=== PATIENT | female | born 1995 | race Caucasian/White ===

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

== ENCOUNTER 2017-02-02 19:58 | Emergency (ER) | payer MEDICAID ==
[2017-02-02 20:07] VITALS: BP 135/75; PULSE 100; O2SAT 97
--- NOTE | 2017-02-02 20:16 | ERPHSYRPT ---
- History of Present Illness Time Seen by Provider: 02/02/17 20:15 Source: patient Exam Limitations: no limitations Patient Subjective Stated Complaint: pt reports taking home pregancy test a few days ago with + results-states she began having low abd cramps fabienne 2 hrs ago- denies vaginal discharge-denies fever-denies diffilcuty with uriantion Triage Nursing Assessment: pt pink warm et [id number] et tearful during triage-abd soft et nontedner to palp Physician History: pt reports taking home pregancy test a few days ago with + results-states she began having low abd cramps fabienne 2 hrs ago-denies vaginal discharge-denies fever- denies diffilcuty with uriantion Timing/Duration: today Activites at Onset: none Quality: cramping Onset Location: suprapubic Pain Radiation: none Allergies/Adverse Reactions: Latex, Natural Rubber Allergy (Verified 02/02/17 20:06) Home Medications: Albuterol 17 gm IH DAILY 09/07/16 [History] Hx Tetanus, Diphtheria Vaccination/Date Given: No Hx Influenza Vaccination/Date Given: No Hx Pneumococcal Vaccination/Date Given: No - Review of Systems Constitutional: No Fever, No Chills Eyes: No Symptoms Ears, Nose, & Throat: No Symptoms Respiratory: No Cough, No Dyspnea Cardiac: No Chest Pain, No Edema, No Syncope Abdominal/Gastrointestinal: Abdominal Pain, No Nausea, No Vomiting, No Diarrhea , No Hematemesis, No Hematochezia, No Melena, No Dysphagia, No Appetite Changes Genitourinary Symptoms: No Dysuria Musculoskeletal: No Back Pain, No Neck Pain Skin: No Rash Neurological: No Dizziness, No Focal Weakness, No Sensory Changes Psychological: No Symptoms Endocrine: No Symptoms All Other Systems: Reviewed and Negative - Past Medical History Pertinent Past Medical History: Yes Neurological History: Epilepsy, Seizures ENT History: No Pertinent History Cardiac History: Other Respiratory History: Asthma Endocrine Medical History: No Pertinent History Musculoskeletal History: No Pertinent History GI Medical History: No Pertinent History History: No Pertinent History Psycho-Social History: Depression, Other Female Reproductive Disorders: No Pertinent History Other Medical History: narcolepsy, HOLE IN HEART, IRREGULAR HEARTBEAT - Past Surgical History Past Surgical History: No - Social History Smoking Status: Never smoker How long have you smoked: 3 YEARS Exposure to second hand smoke: Yes Drug Use: none Patient Lives Alone: No - Female History Hx Now: No - Nursing Vital Signs Nursing Vital Signs: Initial Vital Signs Temperature 98.7 F Temperature Source Oral Pulse Rate 100 Respiratory Rate 20 Blood Pressure [Right Arm] 135/75 Pain Intensity 9 - Physical Exam General Appearance: no apparent distress, alert Eye Exam: PERRL/EOMI, eyes nml inspection Ears, Nose, Throat Exam: normal ENT inspection, TMs normal, pharynx normal, moist mucous membranes Neck Exam: normal inspection, non-tender, supple, full range of motion Respiratory Exam: normal breath sounds, lungs clear, No respiratory distress Cardiovascular Exam: regular rate/rhythm, normal heart sounds, normal peripheral pulses Gastrointestinal/Abdomen Exam: soft, No tenderness, No mass Back Exam: normal inspection, normal range of motion, No CVA tenderness, No vertebral tenderness Extremity Exam: normal inspection, normal range of motion, pelvis stable Neurologic Exam: alert, oriented x 3, cooperative, salt lifter II-XII nml as tested, normal mood/affect, sensation nml, No motor deficits Skin Exam: normal color, warm, dry Lymphatic Exam: No adenopathy SpO2: 97 Oxygen Delivery: Room Air - Course Nursing assessment & vital signs reviewed: Yes Ordered Tests: Active Orders 24 hr Category Date Time Status CBC W DIFF Stat Lab 02/02/17 20:23 Completed CMP Stat Lab 02/02/17 20:23 Completed CULTURE,URINE Stat Lab 02/02/17 20:23 Received HCG, Quantitative (Inhouse) Stat Lab 02/02/17 20:23 Completed HCG,QUALITATIVE URINE Stat Lab 02/02/17 20:04 Uncollected UA W/ MICROSCOPIC Stat Lab 02/02/17 20:23 Completed Urine Triage Profile Stat Lab 02/02/17 20:23 Completed Medication Summary Generic Name Dose Route Start Last Admin Trade Name Freq PRN Reason Stop Dose Admin Ceftriaxone Sodium 1,000 mg/ 100 mls @ 100 mls/hr 02/02/17 20:52 02/02/17 20: 55 Sodium Chloride IV 02/02/17 21:51 100 mls/hr STAT ONE Administration Discontinued Medications Generic Name Dose Route Start Last Admin Trade Name Freq PRN Reason Stop Dose Admin Ceftriaxone Sodium/Dextrose Confirm 02/02/17 20:52 Rocephin 1 Gm-D5w 50 Ml Bag Administered 02/02/17 20:53 Dose 1 g in 50 mls @ ud IV .STK-MED ONE Lab/Rad Data: Laboratory Result Diagrams 02/02/17 20:23 02/02/17 20:23 Laboratory Results 02/02/17 02/02/17 02/02/17 Range/Units 20:23 20:23 20:23 WBC (4.0-10.5) K/mm3 RBC (4.1-5.4) M/mm3 Hgb (12.0-16.0) gm/dl Hct (35-47) % MCV (78-100) fl MCH (26-32) pg MCHC (32-36) g/dl RDW (11.5-14.0) % Plt Count (150-450) K/mm3 MPV (6-9.5) fl Gran % (36.0-66.0) % Lymphocytes % (24.0-44.0) % Monocytes % (0.0-12.0) % Eosinophils % (0.00-5.0) % Basophils % (0.0-0.4) % Basophils # (0-0.4) Sodium 138 (136-145) mEq/L Potassium 3.4 L (3.5-5.1) mEq/L Chloride 104 (98-107) mEq/L Carbon Dioxide 23.6 (21-32) mEq/L Anion Gap 14.0 (5-15) MEQ/L BUN 6 L (9-20) mg/dL Creatinine 0.84 (0.55-1.30) mg/dl Estimated GFR > 60 ML/MIN Glucose 98 (70-110) MG/DL Calcium 9.0 (8.5-10.1) mg/dL Total Bilirubin 0.40 (0.2-1.0) mg/dL AST 15 (15-37) U/L ALT 23 (12-78) U/L Alkaline Phosphatase 50 (46-116) U/L Serum Total Protein 7.4 (6.4-8.2) gm/dL Albumin 3.6 (3.4-5.0) g/dL Beta HCG, Quant 33042 H (0-6) IU/L Ur Collection Type VOID Urine Color YELLOW (YELLOW) Urine Appearance SLIGHTLY CLOUDY (CLEAR) Urine pH 6.0 (5-6) Ur Specific [place] 1.025 (1.005-1.025) Urine Protein TRACE (Negative) Urine Glucose (UA) NEGATIVE (NEGATIVE) mg/dL Urine Ketones NEGATIVE (NEGATIVE) Urine Nitrite NEGATIVE (NEGATIVE) Urine Bilirubin NEGATIVE (NEGATIVE) Urine Urobilinogen 1 (0-1) mg/dL Urine WBC (Auto) SMALL (NEGATIVE) Urine RBC (Auto) TRACE-INTACT (0-5) Avelino/ul Urine Microscopic RBC 2-5 (0-2) /HPF Urine Microscopic WBC 15-25 (0-5) /HPF Ur Epithelial Cells MANY (FEW) /HPF Urine Bacteria MODERATE (NEGATIVE) /HPF Urine Mucus MODERATE (NEGATIVE) /HPF Urine Opiates Level NEG. (NEGATIVE) Ur Methadone NEG. (NEGATIVE) Urine Barbiturates NEG. (NEGATIVE) Ur Phencyclidine (PCP) NEG. (NEGATIVE) Urine Amphetamine NEG. (NEGATIVE) U Benzodiazepine Level NEG. (NEGATIVE) Urine Cocaine NEG. (NEGATIVE) Urine Marijuana (THC) POS. (NEGATIVE) Specimen Received 02/02/17 2020 02/02/17 Range/Units 20:23 WBC 10.6 H (4.0-10.5) K/mm3 RBC 5.15 (4.1-5.4) M/mm3 Hgb 14.0 (12.0-16.0) gm/dl Hct 42.0 (35-47) % MCV 81.6 (78-100) fl MCH 27.2 (26-32) pg MCHC 33.3 (32-36) g/dl RDW 13.0 (11.5-14.0) % Plt Count 352 (150-450) K/mm3 MPV 9.4 (6-9.5) fl Gran % 62.9 (36.0-66.0) % Lymphocytes % 27.4 (24.0-44.0) % Monocytes % 8.8 (0.0-12.0) % Eosinophils % 0.6 (0.00-5.0) % Basophils % 0.3 (0.0-0.4) % Basophils # 0.03 (0-0.4) Sodium (136-145) mEq/L Potassium (3.5-5.1) mEq/L Chloride (98-107) mEq/L Carbon Dioxide (21-32) mEq/L Anion Gap (5-15) MEQ/L BUN (9-20) mg/dL Creatinine (0.55-1.30) mg/dl Estimated GFR ML/MIN Glucose (70-110) MG/DL Calcium (8.5-10.1) mg/dL Total Bilirubin (0.2-1.0) mg/dL AST (15-37) U/L ALT (12-78) U/L Alkaline Phosphatase (46-116) U/L Serum Total Protein (6.4-8.2) gm/dL Albumin (3.4-5.0) g/dL Beta HCG, Quant (0-6) IU/L Ur Collection Type Urine Color (YELLOW) Urine Appearance (CLEAR) Urine pH (5-6) Ur Specific [place] (1.005-1.025) Urine Protein (Negative) Urine Glucose (UA) (NEGATIVE) mg/dL Urine Ketones (NEGATIVE) Urine Nitrite (NEGATIVE) Urine Bilirubin (NEGATIVE) Urine Urobilinogen (0-1) mg/dL Urine WBC (Auto) (NEGATIVE) Urine RBC (Auto) (0-5) Avelino/ul Urine Microscopic RBC (0-2) /HPF Urine Microscopic WBC (0-5) /HPF Ur Epithelial Cells (FEW) /HPF Urine Bacteria (NEGATIVE) /HPF Urine Mucus (NEGATIVE) /HPF Urine Opiates Level (NEGATIVE) Ur Methadone (NEGATIVE) Urine Barbiturates (NEGATIVE) Ur Phencyclidine (PCP) (NEGATIVE) Urine Amphetamine (NEGATIVE) U Benzodiazepine Level (NEGATIVE) Urine Cocaine (NEGATIVE) Urine Marijuana (THC) (NEGATIVE) Specimen Received - Progress Progress: improved Air Movement: good Blood Culture(s) Obtained: No Antibiotics given: Yes Counseled pt/family regarding: lab results, diagnosis, need for follow-up - Departure Time of Disposition: 21:09 Departure Disposition: Home Clinical Impression: UTI (urinary tract infection) Qualifiers: Urinary tract infection type: site unspecified Hematuria presence: without hematuria Qualified Code(s): N39.0 - Urinary tract infection, site not specified Qualifiers: Weeks of gestation: less than 8 weeks Qualified Code(s): Z3A.01 - Less than 8 weeks gestation of Condition: Stable Critical Care Time: No Referrals: HENRY STAUFFER [ACTIVE STAFF] - Instructions: -- Discomforts and Remedies, Abdominal Pain -- Early Additional Instructions: URINARY TRACT INFECTION 1. You will need to drink plenty of fluids in order to keep your urinary system flushed. These fluids should mainly consist of water and juices. 2. Take medications as directed. You need to completely finish any antiobiotic prescription given. 3. Try to avoid coffee, tea, alcohol, and seasoned foods as they may cause bladder irritation. 4. If signs and symptoms persist after 3-4 days, you will need to follow up with your family physician. 5. Female Patients: A. Avoid intercourse for 3-4 days. B. Empty bladder before and after intercourse to reduce risk of re- infection. C. After emptying bladder, wipe from front to back to reduce the risk of re- infection. follow up with Dr Stauffer for your follow up Prescriptions: Cephalexin Mh 500 mg [Keflex 500 mg] 500 mg PO Q6H #40 capsule
[2017-02-02 20:26] LABS: BASOPHIL % 0.3 % (0.0-0.4); Eosinophil % 0.6 % (0.00-5.0); Granulocytes % 62.9 % (36.0-66.0); Lymphocytes % 27.4 % (24.0-44.0); Mean Cell Volume 81.6 fl (78-100); Mean Corpuscular Hemoglobin 27.2 pg (26-32); Mean Platelet Volume 9.4 fl (6-9.5); Monocytes % 8.8 % (0.0-12.0); Platelet Count 352 K/mm3 (150-450); Red Blood Count 5.15 M/mm3 (4.1-5.4); White Blood Count 10.6 K/mm3 (4.0-10.5)
[2017-02-02 20:41] LABS: COMPLETE URINE MICROSCOPIC? YES; Collection Type VOID; Mucus MODERATE /HPF (NEGATIVE); WBC 15-25 /HPF (0-5)
[2017-02-02 20:42] LABS: ADD URINE CULTURE? YES (NO); Bacteria MODERATE /HPF (NEGATIVE); Epithelial Cells MANY /HPF (FEW)
[2017-02-02] MEDS ORDERED: Rocephin 1000 MG INJ** 1,000 MG in Sodium Chloride 0.9% 100 ML IVPB 100 ML IV ONE (20:52)
[2017-02-02] MEDS ORDERED: ROCEPHIN 1 Gm-D5w 50 ml Bag** 1 G/50 ML IVPB IV ONE (20:52)
[2017-02-02 21:07] LABS: ALBUMIN 3.6 g/dL (3.4-5.0); ALKALINE PHOSPHATASE 50 U/L (46-116); BLOOD UREA NITROGEN 6 mg/dL (9-20); CHLORIDE 104 mEq/L (98-107); Carbon Dioxide 23.6 mEq/L (21-32); Glucose 98 MG/DL (70-110); HCG, Quantitative (Inhouse) 19164 IU/L (0-6); Potassium 3.4 mEq/L (3.5-5.1); SGOT/AST 15 U/L (15-37); SGPT/ALT 23 U/L (12-78); SODIUM 138 mEq/L (136-145); Total Protein 7.4 gm/dL (6.4-8.2)
== END 2017-02-02 21:20 | disposition home or self-care (01) ==
LOC: ED 19:58
DX: O23.41 Unspecified infection of urinary tract in pregnancy, first trimester (principal); R10.9 Unspecified abdominal pain
CPT/HCPCS: 36000; 36415; 80053; 80307; 81000; 84702; 85025; 87086; 96365; 99283; 99284; J0696

== ENCOUNTER 2017-07-17 11:10 | Observation (INO) | payer OTHER ==
[2017-07-17 12:26] VITALS: BP 106/57; PULSE 82
[2017-07-17 12:30] LABS: BASOPHIL % 0.1 % (0.0-0.4); Eosinophil % 0.6 % (0.00-5.0); Granulocytes % 76.4 % (36.0-66.0); Lymphocytes % 14.3 % (24.0-44.0); Mean Cell Volume 84.3 fl (78-100); Mean Corpuscular Hemoglobin 27.1 pg (26-32); Monocytes % 8.6 % (0.0-12.0); Platelet Count 316 K/mm3 (150-450); Red Blood Count 4.47 M/mm3 (4.1-5.4); Red Cell Distribution Width 13.6 % (11.5-14.0); White Blood Count 15.1 K/mm3 (4.0-10.5)
[2017-07-17 12:41] LABS: Bilirubin NEGATIVE (NEGATIVE); Blood NEGATIVE Ery/ul (0-5); COMPLETE URINE MICROSCOPIC? YES; Collection Type VOID; Glucose NEGATIVE (NEGATIVE); Leukocyte Esterase TRACE (NEGATIVE)
[2017-07-17 12:42] LABS: Epithelial Cells RARE /HPF (FEW); WBC 0-2 /HPF (0-5)
[2017-07-17 13:59] LABS: ALBUMIN 2.6 g/dL (3.4-5.0); ALKALINE PHOSPHATASE 88 U/L (46-116); ANION GAP 13.7 MEQ/L (5-15); BLOOD UREA NITROGEN 7 mg/dL (9-20); CHLORIDE 104 mEq/L (98-107); Carbon Dioxide 22.6 mEq/L (21-32); Glucose 93 MG/DL (70-110); Potassium 3.9 mEq/L (3.5-5.1); SGOT/AST 14 U/L (15-37); SGPT/ALT 15 U/L (12-78); SODIUM 136 mEq/L (136-145)
[2017-07-17 16:26] LABS: CHLAMYDIA URINE NEGATIVE; GC URINE NEGATIVE
[2017-07-18 06:50] LABS: Hepatitis B Sur Ag Screen Non Reactive (Non Reactive)
== END 2017-07-17 14:40 | disposition home or self-care (01) ==
LOC: LAB 11:10 → OB 11:11
PROVIDERS: ADMIT Family Medicine; ATTEND Family Medicine
DX: Z34.83 Encounter for supervision of other normal pregnancy, third trimester (principal)
CPT/HCPCS: 36415; 80053; 80055; 80307; 81000; 84443; 84550; 87086; 87210; 87491; 87591; G0378

== ENCOUNTER 2017-07-22 19:08 | Observation (INO) | payer OTHER ==
[2017-07-22] MEDS ORDERED: Phenergan 25 MG INJ IV PRN (20:56)
[2017-07-22] MEDS ORDERED: Lactated Ringers 1,000 ML IV ONE (20:58)
[2017-07-22 21:22] LABS: Bilirubin NEGATIVE (NEGATIVE); Blood NEGATIVE Ery/ul (0-5); Collection Type CLEAN CATCH; Glucose NEGATIVE (NEGATIVE); Leukocyte Esterase 1+ (NEGATIVE)
[2017-07-22 21:23] LABS: COMPLETE URINE MICROSCOPIC? YES
[2017-07-22 21:24] LABS: ADD URINE CULTURE? NO (NO); Bacteria RARE /HPF (NEGATIVE); Epithelial Cells FEW /HPF (FEW)
[2017-07-22 21:49] LABS: BASOPHIL % 0.2 % (0.0-0.4); Eosinophil % 0.2 % (0.00-5.0); Granulocytes % 87.3 % (36.0-66.0); Lymphocytes % 5.2 % (24.0-44.0); Mean Cell Volume 84.1 fl (78-100); Mean Corpuscular Hemoglobin 27.2 pg (26-32); Mean Platelet Volume 9.9 fl (6-9.5); Monocytes % 7.1 % (0.0-12.0); Platelet Count 273 K/mm3 (150-450); Red Blood Count 4.41 M/mm3 (4.1-5.4); Red Cell Distribution Width 13.6 % (11.5-14.0); White Blood Count 13.1 K/mm3 (4.0-10.5)
[2017-07-22] MEDS: Lactated Ringers 1,000 ML IV SCH (22:22)
[2017-07-22 22:33] LABS: ALBUMIN 2.7 g/dL (3.4-5.0); ALKALINE PHOSPHATASE 90 U/L (46-116); ANION GAP 15.9 MEQ/L (5-15); BLOOD UREA NITROGEN 5 mg/dL (9-20); CHLORIDE 103 mEq/L (98-107); Carbon Dioxide 21.5 mEq/L (21-32); Glucose 90 MG/DL (70-110); Potassium 3.4 mEq/L (3.5-5.1); SGOT/AST 8 U/L (15-37); SGPT/ALT 15 U/L (12-78); SODIUM 137 mEq/L (136-145); Total Protein 7.2 gm/dL (6.4-8.2)
[2017-07-23] MEDS: Lactated Ringers 1,000 ML IV SCH (06:16)
[2017-07-23] MEDS ORDERED: TYLENOL 325 MG PO PRN (07:53)
--- NOTE | 2017-07-23 08:54 | PCM.HP ---
History of Present Illness - Chief Complaint Chief Complaint: nausea vomiting and diarrhea History of Present Illness: is a 21 year old female C/o fever and TURPIN since last night, also bilat ear pain. Vomiting. Not feeling much better this morning. No more vomiting. N resolved. Positive for Influenza A. Did not get flu shot this year. - Review of Systems Constitutional: Fever, Chills Ears, Nose, & Throat: Ear Pain Respiratory: Cough Genitourinary Symptoms: Medications & Allergies Home Medications: Home Medication List Vits W-Ca,Fe,FA(<1Mg) [] 1 each PO DAILY 07/17/17 [History Confirmed 07/22/17] Allergies/Adverse Reactions: Allergies Allergy/AdvReac Type Severity Reaction Status Date / Time Latex, Natural Rubber Allergy Verified 07/17/17 11:39 - Past Medical History Past Medical History: Yes Neurological History: Epilepsy, Seizures ENT History: No Pertinent History Cardiac History: Other Respiratory History: Asthma Endocrine Medical History: No Pertinent History Musculoskelatal History: No Pertinent History GI Medical History: No Pertinent History History: No Pertinent History Pyscho-Social History: No Pertinent History Reproductive Disorders: No Pertinent History Comment: palpitations, pre-eclampsia - Female History Are you now?: Yes (due 09/28/17) - Past Surgical History Past Surgical History: No - Social History Smoking Status: Current every day smoker How long have you smoked: 3 YEARS Exposure to second hand smoke: Yes Alcohol: None Drug Use: none - Physical Exam Vital Signs: Vital Signs - 24 hr Temp Pulse Resp BP BP Pulse Ox 07/23/17 08:00 97.8 F 101 H 18 82/37 93 L 07/23/17 03:38 98.9 F 69 16 125/81 97 07/23/17 00:00 98.4 F 66 16 116/78 98 07/22/17 21:32 18 07/22/17 21:21 99.4 F 18 L 20 109/64 07/22/17 19:53 99.4 F 20 109/64 07/22/17 19:43 99.4 F 20 109/64 General Appearance: no apparent distress, alert Neurologic Exam: oriented x 3, cooperative Eye Exam: eyes nml inspection Ears, Nose, Throat Exam: moist mucous membranes Respiratory Exam: normal breath sounds, lungs clear, No crackles/rales, No rhonchi, No wheezing Gastrointestinal/Abdomen Exam: soft, other (gravid) Back Exam: normal inspection Extremity Exam: normal inspection, No pedal edema, No swelling Skin Exam: normal color, warm, dry, No rash Results - Labs Lab/Micro Results: Lab Results-Last 24 Hours 07/22/17 07/22/17 07/22/17 Range/Units 20:43 20:43 21:52 WBC 13.1 H (4.0-10.5) K/mm3 RBC 4.41 (4.1-5.4) M/mm3 Hgb 12.0 (12.0-16.0) gm/dl Hct 37.1 (35-47) % MCV 84.1 (78-100) fl MCH 27.2 (26-32) pg MCHC 32.3 (32-36) g/dl RDW 13.6 (11.5-14.0) % Plt Count 273 (150-450) K/mm3 MPV 9.9 H (6-9.5) fl Gran % 87.3 H (36.0-66.0) % Lymphocytes % 5.2 L (24.0-44.0) % Monocytes % 7.1 (0.0-12.0) % Eosinophils % 0.2 (0.00-5.0) % Basophils % 0.2 (0.0-0.4) % Basophils # 0.02 (0-0.4) Sodium (136-145) mEq/L Potassium (3.5-5.1) mEq/L Chloride (98-107) mEq/L Carbon Dioxide (21-32) mEq/L Anion Gap (5-15) MEQ/L BUN (9-20) mg/dL Creatinine (0.55-1.30) mg/dl Estimated GFR ML/MIN Glucose (70-110) MG/DL Uric Acid (2.6-6.0) mg/dL Calcium (8.5-10.1) mg/dL Total Bilirubin (0.2-1.0) mg/dL AST (15-37) U/L ALT (12-78) U/L Alkaline Phosphatase (46-116) U/L Serum Total Protein (6.4-8.2) gm/dL Albumin (3.4-5.0) g/dL Ur Collection Type CLEAN CATCH Urine Color YELLOW (YELLOW) Urine Appearance CLEAR (CLEAR) Urine pH 7.0 (5-6) Ur Specific [place] 1.010 (1.005-1.025) Urine Protein NEGATIVE (Negative) Urine Ketones NEGATIVE (NEGATIVE) Urine Blood NEGATIVE (0-5) Avelino/ul Urine Nitrite NEGATIVE (NEGATIVE) Urine Bilirubin NEGATIVE (NEGATIVE) Urine Urobilinogen NORMAL (0-1) mg/dL Ur Leukocyte Esterase 1+ (NEGATIVE) Urine Microscopic WBC 2-5 (0-5) /HPF Ur Epithelial Cells FEW (FEW) /HPF Urine Bacteria RARE (NEGATIVE) /HPF Urine Culture Reflexed NO (NO) Urine Glucose NEGATIVE (NEGATIVE) mg/dL Urine Opiates Level NEG. (NEGATIVE) Ur Methadone NEG. (NEGATIVE) Urine Barbiturates NEG. (NEGATIVE) Ur Phencyclidine (PCP) NEG. (NEGATIVE) Urine Amphetamine NEG. (NEGATIVE) U Benzodiazepine Level NEG. (NEGATIVE) Urine Cocaine NEG. (NEGATIVE) Urine Marijuana (THC) NEG. (NEGATIVE) Influenza Type A Ag (NEGATIVE) Influenza Type B Ag (NEGATIVE) RSV (PCR) (Negative) Specimen Received 07/22/17199907/22/17 07/22/17 07/22/17 Range/Units 21:52 21:52 23:37 WBC (4.0-10.5) K/mm3 RBC (4.1-5.4) M/mm3 Hgb (12.0-16.0) gm/dl Hct (35-47) % MCV (78-100) fl MCH (26-32) pg MCHC (32-36) g/dl RDW (11.5-14.0) % Plt Count (150-450) K/mm3 MPV (6-9.5) fl Gran % (36.0-66.0) % Lymphocytes % (24.0-44.0) % Monocytes % (0.0-12.0) % Eosinophils % (0.00-5.0) % Basophils % (0.0-0.4) % Basophils # (0-0.4) Sodium 137 (136-145) mEq/L Potassium 3.4 L (3.5-5.1) mEq/L Chloride 103 (98-107) mEq/L Carbon Dioxide 21.5 (21-32) mEq/L Anion Gap 15.9 H (5-15) MEQ/L BUN 5 L (9-20) mg/dL Creatinine 0.73 (0.55-1.30) mg/dl Estimated GFR > 60 ML/MIN Glucose 90 (70-110) MG/DL Uric Acid 2.9 (2.6-6.0) mg/dL Calcium 8.7 (8.5-10.1) mg/dL Total Bilirubin 0.20 (0.2-1.0) mg/dL AST 8 L (15-37) U/L ALT 15 (12-78) U/L Alkaline Phosphatase 90 (46-116) U/L Serum Total Protein 7.2 (6.4-8.2) gm/dL Albumin 2.7 L (3.4-5.0) g/dL Ur Collection Type Urine Color (YELLOW) Urine Appearance (CLEAR) Urine pH (5-6) Ur Specific [place] (1.005-1.025) Urine Protein (Negative) Urine Ketones (NEGATIVE) Urine Blood (0-5) Avelino/ul Urine Nitrite (NEGATIVE) Urine Bilirubin (NEGATIVE) Urine Urobilinogen (0-1) mg/dL Ur Leukocyte Esterase (NEGATIVE) Urine Microscopic WBC (0-5) /HPF Ur Epithelial Cells (FEW) /HPF Urine Bacteria (NEGATIVE) /HPF Urine Culture Reflexed (NO) Urine Glucose (NEGATIVE) mg/dL Urine Opiates Level (NEGATIVE) Ur Methadone (NEGATIVE) Urine Barbiturates (NEGATIVE) Ur Phencyclidine (PCP) (NEGATIVE) Urine Amphetamine (NEGATIVE) U Benzodiazepine Level (NEGATIVE) Urine Cocaine (NEGATIVE) Urine Marijuana (THC) (NEGATIVE) Influenza Type A Ag POSITIVE (NEGATIVE) Influenza Type B Ag NEGATIVE (NEGATIVE) RSV (PCR) NEGATIVE (Negative) Specimen Received Assessment/Plan (1) Influenza A Current Visit: Yes Status: Acute Assessment & Plan: On tamiflu. Code(s): J10.1 - FLU DUE TO OTH IDENT INFLUENZA VIRUS W OTH RESP MANIFEST (2) Current Visit: No Status: Acute Qualifiers: Weeks of gestation: 30 weeks Qualified Code(s): Z3A.30 - 30 weeks gestation of Assessment & Plan: stable Code(s): Z33.1 - STATE, INCIDENTAL
[2017-07-23] MEDS ORDERED: THERAGRAN MULTIVITAMIN PO SCH (10:00)
[2017-07-23] MEDS ORDERED: NON-FORMULARY ITEM (Prenatal Vits W-Ca,Fe,Fa(<1mg) [Prenatal] 1 EACH) PO SCH (10:00)
[2017-07-23] MEDS ORDERED: FLUCELVAX QUAD 2017-2018 SYR IM ONE (10:00)
[2017-07-23] MEDS ORDERED: Tamiflu 75MG Capsule PO SCH (10:00)
[2017-07-23 11:17] VITALS: BP 110/54; PULSE 104; O2SAT 98
--- NOTE | 2017-07-23 13:49 | PCM.DS ---
Discharge Summary Date of Admission: 07/22/17 19:08 Admitting Physician: HENRY FERGUSON Primary Care Provider: HENRY FERGUSON Allergies Allergies Latex, Natural Rubber Allergy (Verified 07/17/17 11:39) Hospital Summary - Hospital Course Hospital Course: Pt was admitted with vomiting, found to have Influenza A and given IV fluids. She felt better with respect to nausea and tolerated po. She started tamiflu. Would like to go home. - Vitals & Intake/Output Vital Signs: Vital Signs Temperature 98 F 07/23/17 11:16 Pulse Rate 104 H 07/23/17 11:16 Respiratory Rate 20 07/23/17 11:16 Blood Pressure 110/54 07/23/17 11:16 O2 Sat by Pulse Oximetry 98 07/23/17 11:16 Intake & Output: Intake & Output 07/21/17 07/22/17 07/23/17 07/24/17 11:59 11:59 11:59 11:59 Weight 94.347 kg - Lab Result Diagrams: 07/22/17 21:52 07/22/17 21:52 Lab Results-Last 24 Hrs: Lab Results-Last 24 Hours 07/22/17 07/22/17 07/22/17 Range/Units 20:43 20:43 21:52 WBC 13.1 H (4.0-10.5) K/mm3 RBC 4.41 (4.1-5.4) M/mm3 Hgb 12.0 (12.0-16.0) gm/dl Hct 37.1 (35-47) % MCV 84.1 (78-100) fl MCH 27.2 (26-32) pg MCHC 32.3 (32-36) g/dl RDW 13.6 (11.5-14.0) % Plt Count 273 (150-450) K/mm3 MPV 9.9 H (6-9.5) fl Gran % 87.3 H (36.0-66.0) % Lymphocytes % 5.2 L (24.0-44.0) % Monocytes % 7.1 (0.0-12.0) % Eosinophils % 0.2 (0.00-5.0) % Basophils % 0.2 (0.0-0.4) % Basophils # 0.02 (0-0.4) Sodium (136-145) mEq/L Potassium (3.5-5.1) mEq/L Chloride (98-107) mEq/L Carbon Dioxide (21-32) mEq/L Anion Gap (5-15) MEQ/L BUN (9-20) mg/dL Creatinine (0.55-1.30) mg/dl Estimated GFR ML/MIN Glucose (70-110) MG/DL Uric Acid (2.6-6.0) mg/dL Calcium (8.5-10.1) mg/dL Total Bilirubin (0.2-1.0) mg/dL AST (15-37) U/L ALT (12-78) U/L Alkaline Phosphatase (46-116) U/L Serum Total Protein (6.4-8.2) gm/dL Albumin (3.4-5.0) g/dL Ur Collection Type CLEAN CATCH Urine Color YELLOW (YELLOW) Urine Appearance CLEAR (CLEAR) Urine pH 7.0 (5-6) Ur Specific [place] 1.010 (1.005-1.025) Urine Protein NEGATIVE (Negative) Urine Ketones NEGATIVE (NEGATIVE) Urine Blood NEGATIVE (0-5) Avelino/ul Urine Nitrite NEGATIVE (NEGATIVE) Urine Bilirubin NEGATIVE (NEGATIVE) Urine Urobilinogen NORMAL (0-1) mg/dL Ur Leukocyte Esterase 1+ (NEGATIVE) Urine Microscopic WBC 2-5 (0-5) /HPF Ur Epithelial Cells FEW (FEW) /HPF Urine Bacteria RARE (NEGATIVE) /HPF Urine Culture Reflexed NO (NO) Urine Glucose NEGATIVE (NEGATIVE) mg/dL Urine Opiates Level NEG. (NEGATIVE) Ur Methadone NEG. (NEGATIVE) Urine Barbiturates NEG. (NEGATIVE) Ur Phencyclidine (PCP) NEG. (NEGATIVE) Urine Amphetamine NEG. (NEGATIVE) U Benzodiazepine Level NEG. (NEGATIVE) Urine Cocaine NEG. (NEGATIVE) Urine Marijuana (THC) NEG. (NEGATIVE) Influenza Type A Ag (NEGATIVE) Influenza Type B Ag (NEGATIVE) RSV (PCR) (Negative) Specimen Received 07/22/17199907/22/17 07/22/17 07/22/17 Range/Units 21:52 21:52 23:37 WBC (4.0-10.5) K/mm3 RBC (4.1-5.4) M/mm3 Hgb (12.0-16.0) gm/dl Hct (35-47) % MCV (78-100) fl MCH (26-32) pg MCHC (32-36) g/dl RDW (11.5-14.0) % Plt Count (150-450) K/mm3 MPV (6-9.5) fl Gran % (36.0-66.0) % Lymphocytes % (24.0-44.0) % Monocytes % (0.0-12.0) % Eosinophils % (0.00-5.0) % Basophils % (0.0-0.4) % Basophils # (0-0.4) Sodium 137 (136-145) mEq/L Potassium 3.4 L (3.5-5.1) mEq/L Chloride 103 (98-107) mEq/L Carbon Dioxide 21.5 (21-32) mEq/L Anion Gap 15.9 H (5-15) MEQ/L BUN 5 L (9-20) mg/dL Creatinine 0.73 (0.55-1.30) mg/dl Estimated GFR > 60 ML/MIN Glucose 90 (70-110) MG/DL Uric Acid 2.9 (2.6-6.0) mg/dL Calcium 8.7 (8.5-10.1) mg/dL Total Bilirubin 0.20 (0.2-1.0) mg/dL AST 8 L (15-37) U/L ALT 15 (12-78) U/L Alkaline Phosphatase 90 (46-116) U/L Serum Total Protein 7.2 (6.4-8.2) gm/dL Albumin 2.7 L (3.4-5.0) g/dL Ur Collection Type Urine Color (YELLOW) Urine Appearance (CLEAR) Urine pH (5-6) Ur Specific [place] (1.005-1.025) Urine Protein (Negative) Urine Ketones (NEGATIVE) Urine Blood (0-5) Avelino/ul Urine Nitrite (NEGATIVE) Urine Bilirubin (NEGATIVE) Urine Urobilinogen (0-1) mg/dL Ur Leukocyte Esterase (NEGATIVE) Urine Microscopic WBC (0-5) /HPF Ur Epithelial Cells (FEW) /HPF Urine Bacteria (NEGATIVE) /HPF Urine Culture Reflexed (NO) Urine Glucose (NEGATIVE) mg/dL Urine Opiates Level (NEGATIVE) Ur Methadone (NEGATIVE) Urine Barbiturates (NEGATIVE) Ur Phencyclidine (PCP) (NEGATIVE) Urine Amphetamine (NEGATIVE) U Benzodiazepine Level (NEGATIVE) Urine Cocaine (NEGATIVE) Urine Marijuana (THC) (NEGATIVE) Influenza Type A Ag POSITIVE (NEGATIVE) Influenza Type B Ag NEGATIVE (NEGATIVE) RSV (PCR) NEGATIVE (Negative) Specimen Received Discharge Exam General Appearance: no apparent distress, alert, other (Exam done this morning) Neurologic Exam: oriented x 3, cooperative Skin Exam: normal color, warm, dry Neck Exam: normal inspection Respiratory Exam: normal breath sounds, lungs clear, No crackles/rales, No rhonchi, No wheezing Cardiovascular Exam: regular rate/rhythm, normal heart sounds, No murmur Extremity Exam: No pedal edema, No swelling Final Diagnosis/Problem List - Final Discharge Diagnosis/Problem (1) Influenza A Current Visit: Yes Status: Acute Assessment & Plan: D/c home on tamiflu (2) Current Visit: No Status: Acute Assessment & Plan: continue regular f/u as scheduled. BP good here. - Discharge Disposition: Home, Self-Care Condition: Stable Prescriptions: New Oseltamivir 75 mg [Tamiflu 75MG Capsule] 75 mg PO BID #12 cap Continue Vits W-Ca,Fe,FA(<1Mg) [] 1 each PO DAILY Follow up with: HENRY FERGUSON [Primary Care Provider] - 1 Week
== END 2017-07-23 14:50 | disposition home or self-care (01) ==
LOC: MED SURG 19:08 → UNDOADMOB 19:08
PROVIDERS: ADMIT Family Medicine; ATTEND Family Medicine
DX: J10.1 Influenza due to other identified influenza virus with other respiratory manifestations (principal); Z3A.30 30 weeks gestation of pregnancy; G40.909 Epilepsy, unspecified, not intractable, without status epilepticus; J45.909 Unspecified asthma, uncomplicated; Z72.0 Tobacco use
CPT/HCPCS: 36415; 80053; 80307; 81000; 84550; 85025; 87631; G0378; A9270-GY

== ENCOUNTER 2017-08-17 16:07 | Observation (INO) | payer OTHER ==
[2017-08-17 17:07] LABS: Bilirubin NEGATIVE (NEGATIVE); Blood NEGATIVE Ery/ul (0-5); COMPLETE URINE MICROSCOPIC? YES; Collection Type CLEAN CATCH; Glucose NEGATIVE (NEGATIVE); Leukocyte Esterase 2+ (NEGATIVE)
[2017-08-17 17:08] LABS: Bacteria FEW /HPF (NEGATIVE); Epithelial Cells FEW /HPF (FEW)
[2017-08-17] MEDS ORDERED: TYLENOL 325 MG PO PRN (17:37)
[2017-08-17] MEDS ORDERED: Lactated Ringers 1,000 ML IV ONE ×2 (17:42→18:56)
[2017-08-17] MEDS ORDERED: TYLENOL 325 MG ONE (17:42)
[2017-08-17] MEDS ORDERED: Lactated Ringers 1,000 ML IV SCH ×2 (18:00→19:00)
[2017-08-17 18:18] LABS: BASOPHIL % 0.1 % (0.0-0.4); Eosinophil % 0.5 % (0.00-5.0); Granulocytes % 72.4 % (36.0-66.0); Lymphocytes % 18.9 % (24.0-44.0); Mean Cell Volume 82.2 fl (78-100); Mean Corpuscular Hemoglobin 25.9 pg (26-32); Monocytes % 8.1 % (0.0-12.0); Platelet Count 315 K/mm3 (150-450); Red Blood Count 4.44 M/mm3 (4.1-5.4); Red Cell Distribution Width 13.9 % (11.5-14.0); White Blood Count 13.7 K/mm3 (4.0-10.5)
[2017-08-17 18:38] LABS: ALBUMIN 2.4 g/dL (3.4-5.0); ALKALINE PHOSPHATASE 110 U/L (46-116); ANION GAP 14.5 MEQ/L (5-15); BLOOD UREA NITROGEN 5 mg/dL (9-20); CHLORIDE 104 mEq/L (98-107); Carbon Dioxide 21.4 mEq/L (21-32); Glucose 88 MG/DL (70-110); Potassium 3.7 mEq/L (3.5-5.1); SGOT/AST 15 U/L (15-37); SGPT/ALT 12 U/L (12-78); SODIUM 136 mEq/L (136-145); Total Protein 6.7 gm/dL (6.4-8.2)
[2017-08-17 20:34] VITALS: BP 133/86; PULSE 86
== END 2017-08-17 20:10 | disposition home or self-care (01) ==
LOC: OB 16:07
PROVIDERS: ADMIT Family Medicine; ATTEND Family Medicine
DX: Z34.83 Encounter for supervision of other normal pregnancy, third trimester (principal)
CPT/HCPCS: 36415; 80053; 80307; 81000; 84550; 85025; G0378; A9270-GY

== ENCOUNTER → 2017-08-22 | Emergency (ER) | payer OTHER ==
[~2017-08-22] MED LIST changes: -BRETHINE 1 MG/ML SQ PRN; -Cervidil 10 MG VAG SCH; +Lactated Ringers 1,000 ML IV ONE; +TYLENOL 325 MG ONE; +TYLENOL 325 MG PO ONE
--- NOTE | 2017-08-22 17:43 | ERPHSYRPT ---
- History of Present Illness Time Seen by Provider: 08/22/17 17:23 Source: patient, family (mother) Patient Subjective Stated Complaint: here for nausea and vomiting for a week now. and states having back pain, and also is having toothache, no fever, no vaginal bleeding,loose stools Triage Nursing Assessment: pt alert, resp easy, skin w/d pink, abd firm pt is 34 weeks , Physician History: CC: vomiting and diarrhea Hx: 21 y/o at 34+5 weeks . She has vomiting and diarrhea for one week. Feels tired. She has intermittent low back pain and vomits. Some mild abdominal cramping which she states is unchanged and attributed to [facility]. She has no vaginal bleeding. No dysuria or fever. Mother was worried as sugar was 168 during glucose tolerance. Also BP shoots up off and on. No headache. She has taken APAP for back. 4-5 diarrheas today, 3-4 vomiting today. Severity: moderate Allergies/Adverse Reactions: Latex, Natural Rubber Allergy (Verified 08/22/17 17:25) Home Medications: Acetaminophen 325 mg [Tylenol 325 mg] 325 mg DAILY 08/22/17 [History] Aspirin [Aspir-Low] 81 mg DAILY 08/22/17 [History] Hx Tetanus, Diphtheria Vaccination/Date Given: No Hx Influenza Vaccination/Date Given: No Hx Pneumococcal Vaccination/Date Given: No Immunizations Up to Date: Yes - Review of Systems Constitutional: Malaise, No Fever, No Chills Eyes: No Symptoms Ears, Nose, & Throat: No Symptoms Respiratory: No Cough Cardiac: No Chest Pain Abdominal/Gastrointestinal: Nausea, Vomiting, Diarrhea, No Abdominal Pain Genitourinary Symptoms: , No Dysuria, No Vaginal Bleeding Musculoskeletal: No Back Pain Skin: No Rash Neurological: No Headache All Other Systems: Reviewed and Negative - Past Medical History Pertinent Past Medical History: Yes Neurological History: Epilepsy, Seizures ENT History: No Pertinent History Cardiac History: Other Respiratory History: Asthma Endocrine Medical History: No Pertinent History Musculoskeletal History: No Pertinent History GI Medical History: No Pertinent History History: No Pertinent History Psycho-Social History: No Pertinent History Female Reproductive Disorders: No Pertinent History Other Medical History: palpitations, pre-eclampsia - Past Surgical History Past Surgical History: No - Social History Smoking Status: Current every day smoker How long have you smoked: 3 YEARS Exposure to second hand smoke: Yes Drug Use: none Patient Lives Alone: No - Female History Hx Last Menstrual Period: unknown Hx Now: Yes Expected Date of Delivery: 09/28/17 - Nursing Vital Signs Nursing Vital Signs: Initial Vital Signs Temperature 98.5 F 08/22/17 17:25 Pulse Rate 18 L 08/22/17 17:25 Respiratory Rate 18 08/22/17 17:25 Blood Pressure 140/86 08/22/17 17:25 O2 Sat by Pulse Oximetry 96 08/22/17 17:25 Pain Scale Pain Intensity 10 - Physical Exam General Appearance: alert Eye Exam: PERRL/EOMI Ears, Nose, Throat Exam: normal ENT inspection, moist mucous membranes Neck Exam: normal inspection, non-tender, supple Respiratory Exam: normal breath sounds, lungs clear Cardiovascular Exam: regular rate/rhythm Gastrointestinal/Abdomen Exam: soft, No tenderness Extremity Exam: normal inspection, normal range of motion Neurologic Exam: alert, oriented x 3, cooperative, telecommunications professional II-XII nml as tested, sensation nml, No motor deficits Skin Exam: warm, dry, No rash SpO2 Interpretation: normal SpO2: 96 Oxygen Delivery: Room Air - Course Nursing assessment & vital signs reviewed: Yes Ordered Tests: Active Orders 24 hr Category Date Time Status Clean Catch Urine Specimen STAT Care 08/22/17 17:36 Active IV Insertion STAT Care 08/22/17 17:36 Active CBC W DIFF Stat Lab 08/22/17 17:45 Received CMP Stat Lab 08/22/17 17:45 Received UA W/RFX UR CULTURE Stat Lab 08/22/17 17:52 Received Urine Triage Profile Stat Lab 08/22/17 17:52 Received Medication Summary Generic Name Dose Route Start Last Admin Trade Name Freq PRN Reason Stop Dose Admin Lactated Ringer's 1,000 mls @ 999 mls/hr 08/22/17 17:36 08/22/17 17:50 Lactated Ringers IV 08/22/17 18:36 999 mls/hr .Q1H1M ONE Administration Discontinued Medications Generic Name Dose Route Start Last Admin Trade Name Freq PRN Reason Stop Dose Admin Lactated Ringer's Confirm 08/22/17 17:49 Lactated Ringers Administered 08/22/17 17:50 Dose 1,000 mls @ ud IV .STK-MED ONE - Progress Progress Note: 08/22/17 18:02 She had benadryl and reglan. She states headache improving. She is restless but declines addl meds and is ready to go home to rest. She will stay with . TURPIN instr given. CO level wnl. Counseled pt/family regarding: diagnosis, need for follow-up - Departure Time of Disposition: 18:02 Departure Disposition: Home Clinical Impression: Migraine headache Qualifiers: Migraine type: without aura Status migrainosus presence: without status migrainosus Intractability: not intractable Qualified Code(s): G43.009 - Migraine without aura, not intractable, without status migrainosus Condition: Stable Critical Care Time: No Referrals: HENRY FERGUSON [Primary Care Provider] - Instructions: Migraine Additional Instructions: HEADACHE 1. After discharge from the emergency department, you should rest at home in a cool, dark, quiet place for 12-24 hours. 2. If any of the following signs or symptoms are noticed, you should be re- evaluated right away: A. Visual changes B. Stiff Neck C. Change in quality or location of pain D. Fever E. Recurrent vomiting 3. If pain medications were prescribed or given, they may cause drowsiness. No driving tonite and stay with family. Return for problems or concerns.
[2017-08-22 17:55] LABS: BASOPHIL % 0.1 % (0.0-0.4); Eosinophil % 0.6 % (0.00-5.0); Granulocytes % 73.8 % (36.0-66.0); Lymphocytes % 17.1 % (24.0-44.0); Mean Cell Volume 81.3 fl (78-100); Mean Corpuscular Hemoglobin 26.1 pg (26-32); Mean Platelet Volume 9.9 fl (6-9.5); Monocytes % 8.4 % (0.0-12.0); Platelet Count 334 K/mm3 (150-450); Red Blood Count 4.59 M/mm3 (4.1-5.4); Red Cell Distribution Width 14.4 % (11.5-14.0); White Blood Count 16.2 K/mm3 (4.0-10.5)
[2017-08-22 18:26] LABS: ALBUMIN 2.5 g/dL (3.4-5.0); ALKALINE PHOSPHATASE 98 U/L (46-116); ANION GAP 15.2 MEQ/L (5-15); BLOOD UREA NITROGEN 6 mg/dL (9-20); CHLORIDE 102 mEq/L (98-107); Glucose 105 MG/DL (70-110); Potassium 3.9 mEq/L (3.5-5.1); SGOT/AST 11 U/L (15-37); SGPT/ALT 11 U/L (12-78); SODIUM 135 mEq/L (136-145); Total Protein 6.7 gm/dL (6.4-8.2)
[2017-08-22 18:44] VITALS: O2SAT 97
[2017-08-22 18:46] LABS: Bilirubin NEGATIVE (NEGATIVE); Blood NEGATIVE Ery/ul (0-5); Collection Type CCMS; Glucose NEGATIVE (NEGATIVE); Leukocyte Esterase TRACE (NEGATIVE)
[2017-08-22 18:47] LABS: ADD URINE CULTURE? NO (NO); Bacteria RARE /HPF (NEGATIVE); COMPLETE URINE MICROSCOPIC? YES; Epithelial Cells FEW /HPF (FEW); WBC 0-2 /HPF (0-5)
[2017-08-22 19:25] VITALS: BP 145/83; PULSE 100
== END | disposition left against medical advice (07) ==
LOC: ED 17:09
DX: O21.2 Late vomiting of pregnancy (principal); R19.7 Diarrhea, unspecified; M54.5 Low back pain
CPT/HCPCS: 36000; 36415; 80053; 80307; 81000; 85025; 96360; 99284; A9270-GY

== ENCOUNTER 2017-09-01 06:41 | Observation (INO) | payer OTHER ==
[2017-09-01 08:16] LABS: Amphetamine,Urine NEG. (NEGATIVE); Barbiturate,Urine NEG. (NEGATIVE); Benzodiazepine,Urine NEG. (NEGATIVE); Cocaine,Urine NEG. (NEGATIVE); Methadone,Urine NEG. (NEGATIVE); Opiate,Urine NEG. (NEGATIVE); PCP,Urine NEG. (NEGATIVE); THC,Urine NEG. (NEGATIVE)
[2017-09-01 08:39] LABS: Appearance CLOUDY (CLEAR); Bilirubin NEGATIVE (NEGATIVE); Glucose NEGATIVE (NEGATIVE); Ketones SMALL (NEGATIVE); Leukocyte Esterase 1+ (NEGATIVE); Mucus SLIGHT /HPF (NEGATIVE); Nitrite NEGATIVE (NEGATIVE); Protein,Urine Dip 30 (Negative); Specific Gravity 1.015 (1.005-1.025); Urobilinogen 4 mg/dL (0-1)
[2017-09-01 08:40] LABS: Bacteria FEW /HPF (NEGATIVE); Epithelial Cells MODERATE /HPF (FEW)
[2017-09-01] MEDS ORDERED: D5W/0.45NS W/ 20mEq KCl 1000 ML 1,000 ML IV SCH ×2 (10:30→12:00)
[2017-09-01 11:31] LABS: BASOPHIL % 0.1 % (0.0-0.4); Basophil (Absolute #) 0.02 (0-0.4); Eosinophil (Absolute #) 0 (0-0.5); Granulocyte Absolute (ANC) 16.28 (1.4-6.9); Granulocytes % 91.6 % (36.0-66.0); Hematocrit 41.8 % (35-47); Hemoglobin 13.3 gm/dl (12.0-16.0); Lymphocyte (Absolute #) 0.81 (1.0-4.6); Lymphocytes % 4.6 % (24.0-44.0); Mean Cell Volume 80.5 fl (78-100); Mean Corpuscular Hemoglobin 25.6 pg (26-32); Mean Corpuscular Hgb Concent. 31.8 g/dl (32-36); Mean Platelet Volume 10.3 fl (6-9.5); Monocyte (Absolute #) 0.66 (0.0-1.3); Monocytes % 3.7 % (0.0-12.0); Platelet Count 389 K/mm3 (150-450); Red Blood Count 5.19 M/mm3 (4.1-5.4); Red Cell Distribution Width 14.7 % (11.5-14.0); White Blood Count 17.8 K/mm3 (4.0-10.5)
[2017-09-01 11:43] LABS: ALBUMIN 2.6 g/dL (3.4-5.0); ALKALINE PHOSPHATASE 124 U/L (46-116); ANION GAP 17.2 MEQ/L (5-15); BLOOD UREA NITROGEN 10 mg/dL (9-20); CHLORIDE 103 mEq/L (98-107); Calcium 8.6 mg/dL (8.5-10.1); Carbon Dioxide 22.1 mEq/L (21-32); Creatinine 1 0.81 mg/dl (0.55-1.30); EST GLOMERULAR FILTRATION RATE > 60 ML/MIN; Glucose 96 MG/DL (70-110); Potassium 3.7 mEq/L (3.5-5.1); SGOT/AST 17 U/L (15-37); SGPT/ALT 13 U/L (12-78); SODIUM 139 mEq/L (136-145); Total Protein 6.9 gm/dL (6.4-8.2)
[2017-09-01 12:41] LABS: INFLUENZA A NEGATIVE (NEGATIVE); INFLUENZA B NEGATIVE (NEGATIVE); RESPIRATORY SYNCTIAL VIRUS NEGATIVE (Negative)
[2017-09-01 13:08] VITALS: BP 126/58
[2017-09-01] MEDS ORDERED: TYLENOL EXTRA STRENGTH 500 MG PO PRN (14:27)
[2017-09-01] MEDS: KEFLEX 500 MG PO SCH ×2 (14:48→19:50)
[2017-09-01 18:44] VITALS: PULSE 110
== END 2017-09-01 20:00 | disposition home or self-care (01) ==
LOC: MED SURG 06:41 → UNDOADMOB 06:41 → UNDODISOB 20:00
PROVIDERS: ADMIT Family Medicine; ATTEND Family Medicine
DX: O21.9 Vomiting of pregnancy, unspecified (principal)
CPT/HCPCS: 36415; 80053; 80307; 81000; 85025; 87040; 87086; 87631; G0378; A9270-GY

== ENCOUNTER 2017-09-16 21:11 | Observation (INO) | payer OTHER ==
[2017-09-16 22:36] LABS: Amphetamine,Urine NEG. (NEGATIVE); Barbiturate,Urine NEG. (NEGATIVE); Benzodiazepine,Urine NEG. (NEGATIVE); Cocaine,Urine NEG. (NEGATIVE); Methadone,Urine NEG. (NEGATIVE); Opiate,Urine NEG. (NEGATIVE); PCP,Urine NEG. (NEGATIVE); THC,Urine NEG. (NEGATIVE)
[2017-09-16 22:55] VITALS: BP 118/70; PULSE 78
== END 2017-09-16 22:45 | disposition home or self-care (01) ==
LOC: OB 21:11 → UNDOADMOB 21:11 → UNDODISOB 22:45
PROVIDERS: ADMIT Family Medicine; ATTEND Family Medicine
DX: Z34.83 Encounter for supervision of other normal pregnancy, third trimester (principal)
CPT/HCPCS: 80307; G0378

== ENCOUNTER 2017-09-20 19:43 | Inpatient (IN) | payer OTHER ==
[2017-09-20] MEDS ORDERED: BRETHINE 1 MG/ML SQ PRN (19:50)
[2017-09-20 20:59] LABS: BASOPHIL % 0.2 % (0.0-0.4); Basophil (Absolute #) 0.03 (0-0.4); Eosinophil % 0.3 % (0.00-5.0); Eosinophil (Absolute #) 0.05 (0-0.5); Granulocyte Absolute (ANC) 11.28 (1.4-6.9); Granulocytes % 73.2 % (36.0-66.0); Hematocrit 36.2 % (35-47); Hemoglobin 11.6 gm/dl (12.0-16.0); Lymphocyte (Absolute #) 2.85 (1.0-4.6); Lymphocytes % 18.5 % (24.0-44.0); Mean Cell Volume 80.4 fl (78-100); Mean Platelet Volume 9.6 fl (6-9.5); Monocyte (Absolute #) 1.21 (0.0-1.3); Monocytes % 7.8 % (0.0-12.0); Platelet Count 379 K/mm3 (150-450); Red Cell Distribution Width 15.5 % (11.5-14.0); White Blood Count 15.4 K/mm3 (4.0-10.5)
[2017-09-20 21:01] LABS: Mean Corpuscular Hemoglobin 25.7 pg (26-32)
[2017-09-20 21:21] LABS: Amphetamine,Urine NEG. (NEGATIVE); Barbiturate,Urine NEG. (NEGATIVE); Benzodiazepine,Urine NEG. (NEGATIVE); Cocaine,Urine NEG. (NEGATIVE); Methadone,Urine NEG. (NEGATIVE); Opiate,Urine NEG. (NEGATIVE); PCP,Urine NEG. (NEGATIVE); THC,Urine NEG. (NEGATIVE)
[2017-09-20] MEDS ORDERED: Cervidil 10 MG VAG SCH (22:00)
[2017-09-21] MEDS ORDERED: PITOCIN 30 UNITS/ LR 500 ML 500 ML IV SCH ×2 (09:00)
[2017-09-21] MEDS: Lactated Ringers 1,000 ML IV SCH ×3 (09:05→18:57)
[2017-09-21] MEDS ORDERED: OB EPIDURAL NAROPIN/SUFENTANIL IN NACL EPIDURAL PRN (15:53)
[2017-09-21] MEDS ORDERED: Lactated Ringers 1,000 ML IV ONE (15:53)
[2017-09-21] MEDS ORDERED: Ephedrine Sulfate 50 MG/ML IV PRN (15:53)
[2017-09-21 19:52] VITALS: O2SAT 99
[2017-09-21] MEDS ORDERED: XYLOCAINE 1% HCL 20 ML MDV ONE (20:50)
[2017-09-21] MEDS ORDERED: Mylicon 80MG PO PRN (21:51)
[2017-09-21] MEDS ORDERED: LANSINOH 40 GM TOP PRN (21:51)
[2017-09-21] MEDS ORDERED: TYLENOL EXTRA STRENGTH 500 MG PO PRN (21:51)
[2017-09-21] MEDS ORDERED: Dulcolax 10 MG SUPP PR PRN (21:51)
[2017-09-21] MEDS ORDERED: CORTISONE 1% CREAM TP PRN (21:51)
[2017-09-21] MEDS ORDERED: Ambien 10 MG PO PRN (21:51)
[2017-09-21] MEDS ORDERED: TUCKS TP PRN (21:51)
[2017-09-21] MEDS ORDERED: Dermoplast Spray TP PRN (21:51)
[2017-09-21] MEDS ORDERED: Anucort-HC SUPPOSITORY PR PRN (21:51)
[2017-09-21] MEDS: Colace 100 MG PO SCH (22:27)
[2017-09-21] MEDS: MOTRIN 400 MG PO PRN (23:42)
[2017-09-22] MEDS: NORCO 5/325 MG PO PRN ×3 (02:03→19:42)
[2017-09-22 05:47] LABS: BASOPHIL % 0.2 % (0.0-0.4); Basophil (Absolute #) 0.03 (0-0.4); Eosinophil % 0.2 % (0.00-5.0); Eosinophil (Absolute #) 0.04 (0-0.5); Granulocyte Absolute (ANC) 12.42 (1.4-6.9); Granulocytes % 71.7 % (36.0-66.0); Hematocrit 32.9 % (35-47); Hemoglobin 10.4 gm/dl (12.0-16.0); Lymphocyte (Absolute #) 3.37 (1.0-4.6); Lymphocytes % 19.4 % (24.0-44.0); Mean Cell Volume 81.2 fl (78-100); Mean Corpuscular Hgb Concent. 31.6 g/dl (32-36); Mean Platelet Volume 9.7 fl (6-9.5); Monocyte (Absolute #) 1.47 (0.0-1.3); Monocytes % 8.5 % (0.0-12.0); Platelet Count 325 K/mm3 (150-450); Red Blood Count 4.05 M/mm3 (4.1-5.4); Red Cell Distribution Width 15.4 % (11.5-14.0); White Blood Count 17.3 K/mm3 (4.0-10.5)
[2017-09-22 05:51] LABS: Mean Corpuscular Hemoglobin 25.6 pg (26-32)
[2017-09-22] MEDS: Colace 100 MG PO SCH ×2 (10:22→22:40)
[2017-09-22] MEDS: MOTRIN 400 MG PO PRN ×2 (10:22→18:47)
[2017-09-22] MEDS: FERREX 150 PO SCH (10:22)
[2017-09-23] MEDS: MOTRIN 400 MG PO PRN ×3 (01:07→17:07)
[2017-09-23] MEDS: NORCO 5/325 MG PO PRN ×5 (01:08→19:41)
[2017-09-23] MEDS: Colace 100 MG PO SCH ×2 (10:25→21:40)
[2017-09-23] MEDS: FERREX 150 PO SCH (10:25)
[2017-09-23 20:20] VITALS: PULSE 86
[2017-09-24 03:25] VITALS: BP 136/76
== END 2017-09-23 22:00 | disposition home or self-care (01) | DRG 775 ==
LOC: OB 19:43 → OBSVTOIN 09-21 15:30 → MED SURG 09-22 19:32
PROVIDERS: ADMIT Family Medicine; ATTEND Family Medicine
PROC: 10E0XZZ Delivery of Products of Conception, External Approach (ICD-10-PCS; principal; 2017-09-21)
DX: O80 Encounter for full-term uncomplicated delivery (principal); Z3A.39 39 weeks gestation of pregnancy; Z37.0 Single live birth
CPT/HCPCS: 01967; 36415; 80053; 80307; 84550; 85025; 87086; G0378; J2590; J2795; A9270-GY

== ENCOUNTER 2017-12-26 09:58 | Emergency (ER) | payer OTHER ==
[2017-12-26] MEDS ORDERED: Sodium Chloride 0.9% 1000 ML 1,000 ML IV STA (10:36)
[2017-12-26] MEDS ORDERED: TORAdol 30 mg Injection IV ONE (10:36)
[2017-12-26] MEDS ORDERED: Zofran 4 MG/2 ML VIAL IV ONE (10:36)
[2017-12-26] MEDS ORDERED: Zofran 4 MG/2 ML VIAL ONE (10:42)
[2017-12-26] MEDS ORDERED: Sodium Chloride 0.9% 1000 ML 1,000 ML ONE (10:43)
[2017-12-26] MEDS ORDERED: TORAdol 30 mg Injection ONE (10:43)
[2017-12-26 11:01] LABS: Appearance CLEAR (CLEAR); BASOPHIL % 0.2 % (0.0-0.4); Basophil (Absolute #) 0.02 (0-0.4); Bilirubin NEGATIVE (NEGATIVE); Blood NEGATIVE Ery/ul (0-5); Eosinophil % 0.3 % (0.00-5.0); Eosinophil (Absolute #) 0.03 (0-0.5); Glucose NEGATIVE (NEGATIVE); Granulocyte Absolute (ANC) 6.58 (1.4-6.9); Granulocytes % 71.6 % (36.0-66.0); Hematocrit 43.2 % (35-47); Hemoglobin 14.1 gm/dl (12.0-16.0); Ketones NEGATIVE (NEGATIVE); Leukocyte Esterase NEGATIVE (NEGATIVE); Lymphocyte (Absolute #) 2.01 (1.0-4.6); Lymphocytes % 21.8 % (24.0-44.0); Mean Cell Volume 79.3 fl (78-100); Mean Corpuscular Hgb Concent. 32.6 g/dl (32-36); Mean Platelet Volume 9.7 fl (6-9.5); Monocyte (Absolute #) 0.56 (0.0-1.3); Monocytes % 6.1 % (0.0-12.0); Nitrite NEGATIVE (NEGATIVE); Platelet Count 381 K/mm3 (150-450); Protein,Urine Dip NEGATIVE (Negative); Red Blood Count 5.45 M/mm3 (4.1-5.4); Red Cell Distribution Width 14.1 % (11.5-14.0); Specific Gravity 1.005 (1.005-1.025); Urobilinogen NORMAL mg/dL (0-1); White Blood Count 9.2 K/mm3 (4.0-10.5)
[2017-12-26 11:02] LABS: Mean Corpuscular Hemoglobin 25.8 pg (26-32)
--- NOTE | 2017-12-26 11:04 | ERPHSYRPT ---
- History of Present Illness Time Seen by Provider: 12/26/17 10:28 Source: patient Exam Limitations: no limitations Patient Subjective Stated Complaint: to er c/o back pain Triage Nursing Assessment: c/o back pain onset 2 days kinesiologist no known injry states hurts in mid lower back up into right shoulder and neck. pt ambulating without difficutly Physician History: Pt started c/o pain in her middle back, right flank, radiating to the upper back and abdomen x 2 days. She denies any injury, fall, or bending, lifting. She also denies fever, chills, diarrhea, or urinary complaints, but vomited once today. She denies history of abdominal surgery, kidney stones, not taking control pills. Timing/Duration: day(s) (2) Method of Injury: unknown Quality: radiating, sharp Back Pain Location: T-spine, lumbar spine Severity of Pain-Max: moderate Severity of Pain-Current: moderate Modifying Factors: Improves With: nothing Associated Symptoms: nausea, vomiting Previous symptoms: no prior history Allergies/Adverse Reactions: Latex, Natural Rubber Allergy (Verified 08/22/17 17:25) Home Medications: Vits W-Ca,Fe,FA(<1Mg) [] 1 each PO DAILY 09/01/17 [History] Hx Tetanus, Diphtheria Vaccination/Date Given: No Hx Influenza Vaccination/Date Given: No Hx Pneumococcal Vaccination/Date Given: No - Review of Systems Constitutional: No Symptoms Abdominal/Gastrointestinal: Nausea, Vomiting Musculoskeletal: Back Pain All Other Systems: Reviewed and Negative - Past Medical History Pertinent Past Medical History: Yes Neurological History: Epilepsy, Seizures ENT History: No Pertinent History Cardiac History: Other Respiratory History: Asthma Endocrine Medical History: No Pertinent History Musculoskeletal History: No Pertinent History GI Medical History: No Pertinent History History: No Pertinent History Psycho-Social History: No Pertinent History Female Reproductive Disorders: No Pertinent History Other Medical History: palpitations, pre-eclampsia - Past Surgical History Past Surgical History: No - Social History Smoking Status: Current every day smoker How long have you smoked: 3 YEARS Exposure to second hand smoke: Yes Drug Use: none Patient Lives Alone: No - Female History Hx Last Menstrual Period: 12/22/17 Hx Now: No - Nursing Vital Signs Nursing Vital Signs: Initial Vital Signs Temperature 98.5 F 12/26/17 10:22 Pulse Rate 69 12/26/17 10:22 Respiratory Rate 16 12/26/17 10:22 Blood Pressure 137/90 12/26/17 10:22 O2 Sat by Pulse Oximetry 98 12/26/17 10:22 Pain Scale Pain Intensity 7 - Physical Exam General Appearance: no apparent distress Eye Exam: eyes nml inspection Ears, Nose, Throat Exam: normal ENT inspection, moist mucous membranes Neck Exam: normal inspection, non-tender, supple Respiratory Exam: normal breath sounds, lungs clear, airway intact, No chest tenderness, No respiratory distress, No diminished breath sounds Cardiovascular Exam: regular rate/rhythm, normal heart sounds, normal peripheral pulses, No murmur Gastrointestinal Exam: soft, normal bowel sounds, No tenderness, No distention, No mass, No guarding, No ecchymosis Back Exam: normal inspection, normal range of motion, CVA tenderness (right, mild), No vertebral tenderness, No rash Extremity Exam: normal inspection, No calf tenderness, No lawrence's sign Peripheral Pulses: dorsalis-pedis (R): 4+, dorsalis-pedis (L): 4+ Neurologic Exam: alert, oriented x 3, cooperative, normal mood/affect, No motor weakness Skin Exam: normal color, warm, dry, No rash Lymphatic Exam: No adenopathy SpO2 Interpretation: normal SpO2: 98 Oxygen Delivery: Room Air - Course Nursing assessment & vital signs reviewed: Yes - CT Exams Abdomen/Pelvis CT Interpretation: Negative, Tele-radiologist Report Ordered Tests: Active Orders 24 hr Category Date Time Status IV Insertion STAT Care 12/26/17 10:36 Active NPO (ED) STAT Care 12/26/17 10:36 Active ABDOMEN AND PELVIS W/0 CONTRAS [CT] Stat Exams 12/26/17 10:36 Completed CHEST 2 VIEWS (PA AND LAT) Stat Exams 12/26/17 12:50 Completed CBC W DIFF Stat Lab 12/26/17 10:55 Completed CMP Stat Lab 12/26/17 10:55 Completed HCG,QUALITATIVE URINE Stat Lab 12/26/17 11:01 Completed LIPASE Stat Lab 12/26/17 10:55 Completed UA W/RFX UR CULTURE Stat Lab 12/26/17 10:55 Completed Urine Triage Profile Stat Lab 12/26/17 10:36 Completed Medication Summary Discontinued Medications Generic Name Dose Route Start Last Admin Trade Name Freq PRN Reason Stop Dose Admin Sodium Chloride 1,000 mls @ 999 mls/hr 12/26/17 10:36 12/26/17 10:55 Sodium Chloride 0.9% 1000 Ml IV 12/26/17 11:36 999 mls/hr .Q1H1M STA Administration Sodium Chloride Confirm 12/26/17 10:43 Sodium Chloride 0.9% 1000 Ml Administered 12/26/17 10:44 Dose 1,000 mls @ ud .ROUTE .STK-MED ONE Ketorolac Tromethamine 30 mg 12/26/17 10:36 12/26/17 10:57 Toradol 30 Mg Injection IV 12/26/17 10:37 30 mg STAT ONE Administration Ketorolac Tromethamine Confirm 12/26/17 10:43 Toradol 30 Mg Injection Administered 12/26/17 10:44 Dose 30 mg .ROUTE .STK-MED ONE Ondansetron HCl 4 mg 12/26/17 10:36 12/26/17 10:57 Zofran 4 Mg/2 Ml Vial IV 12/26/17 10:37 4 mg STAT ONE Administration Ondansetron HCl Confirm 12/26/17 10:42 Zofran 4 Mg/2 Ml Vial Administered 12/26/17 10:43 Dose 4 mg .ROUTE .STK-MED ONE Lab/Rad Data: Laboratory Result Diagrams 12/26/17 10:55 12/26/17 10:55 Laboratory Results 12/26/17 12/26/17 12/26/17 Range/Units 11:01 10:55 10:55 WBC 9.2 (4.0-10.5) K/mm3 RBC 5.45 H (4.1-5.4) M/mm3 Hgb 14.1 (12.0-16.0) gm/dl Hct 43.2 (35-47) % MCV 79.3 (78-100) fl MCH 25.8 L (26-32) pg MCHC 32.6 (32-36) g/dl RDW 14.1 H (11.5-14.0) % Plt Count 381 (150-450) K/mm3 MPV 9.7 H (6-9.5) fl Gran % 71.6 H (36.0-66.0) % Eos # (Auto) 0.03 (0-0.5) Absolute Lymphs (auto) 2.01 (1.0-4.6) Absolute Monos (auto) 0.56 (0.0-1.3) Lymphocytes % 21.8 L (24.0-44.0) % Monocytes % 6.1 (0.0-12.0) % Eosinophils % 0.3 (0.00-5.0) % Basophils % 0.2 (0.0-0.4) % Absolute Granulocytes 6.58 (1.4-6.9) Basophils # 0.02 (0-0.4) Sodium 140 (137-145) mmol/L Potassium 3.9 (3.5-5.1) mmol/L Chloride 104 (98-107) mmol/L Carbon Dioxide 25 (22-30) mmol/L Anion Gap 15.7 H (5-15) MEQ/L BUN 6 L (7-17) mg/dL Creatinine 0.68 (0.52-1.04) mg/dL Estimated GFR > 60.0 ML/MIN Glucose 125 H (74-106) mg/dL Calcium 10.1 (8.4-10.2) mg/dL Total Bilirubin 0.20 (0.2-1.3) mg/dL AST 18 (14-36) U/L ALT 17 (0-35) U/L Alkaline Phosphatase 66 (38-126) U/L Serum Total Protein 7.8 (6.3-8.2) g/dL Albumin 4.7 (3.5-5.0) g/dL Lipase 55 (23-300) U/L Ur Collection Type Urine Color (YELLOW) Urine Appearance (CLEAR) Urine pH (5-6) Ur Specific [place] (1.005-1.025) Urine Protein (Negative) Urine Ketones (NEGATIVE) Urine Blood (0-5) Avelino/ul Urine Nitrite (NEGATIVE) Urine Bilirubin (NEGATIVE) Urine Urobilinogen (0-1) mg/dL Ur Leukocyte Esterase (NEGATIVE) Urine Culture Reflexed (NO) Urine Glucose (NEGATIVE) mg/dL Urine HCG, Qual NEGATIVE (Negative) Urine Opiates Level (NEGATIVE) Ur Methadone (NEGATIVE) Urine Barbiturates (NEGATIVE) Ur Phencyclidine (PCP) (NEGATIVE) Urine Amphetamine (NEGATIVE) U Benzodiazepine Level (NEGATIVE) Urine Cocaine (NEGATIVE) Urine Marijuana (THC) (NEGATIVE) Specimen Received 12/26/17 12/26/17 Range/Units 10:55 10:36 WBC (4.0-10.5) K/mm3 RBC (4.1-5.4) M/mm3 Hgb (12.0-16.0) gm/dl Hct (35-47) % MCV (78-100) fl MCH (26-32) pg MCHC (32-36) g/dl RDW (11.5-14.0) % Plt Count (150-450) K/mm3 MPV (6-9.5) fl Gran % (36.0-66.0) % Eos # (Auto) (0-0.5) Absolute Lymphs (auto) (1.0-4.6) Absolute Monos (auto) (0.0-1.3) Lymphocytes % (24.0-44.0) % Monocytes % (0.0-12.0) % Eosinophils % (0.00-5.0) % Basophils % (0.0-0.4) % Absolute Granulocytes (1.4-6.9) Basophils # (0-0.4) Sodium (137-145) mmol/L Potassium (3.5-5.1) mmol/L Chloride (98-107) mmol/L Carbon Dioxide (22-30) mmol/L Anion Gap (5-15) MEQ/L BUN (7-17) mg/dL Creatinine (0.52-1.04) mg/dL Estimated GFR ML/MIN Glucose (74-106) mg/dL Calcium (8.4-10.2) mg/dL Total Bilirubin (0.2-1.3) mg/dL AST (14-36) U/L ALT (0-35) U/L Alkaline Phosphatase (38-126) U/L Serum Total Protein (6.3-8.2) g/dL Albumin (3.5-5.0) g/dL Lipase (23-300) U/L Ur Collection Type VOID Urine Color YELLOW (YELLOW) Urine Appearance CLEAR (CLEAR) Urine pH 5.0 (5-6) Ur Specific [place] 1.005 (1.005-1.025) Urine Protein NEGATIVE (Negative) Urine Ketones NEGATIVE (NEGATIVE) Urine Blood NEGATIVE (0-5) Avelino/ul Urine Nitrite NEGATIVE (NEGATIVE) Urine Bilirubin NEGATIVE (NEGATIVE) Urine Urobilinogen NORMAL (0-1) mg/dL Ur Leukocyte Esterase NEGATIVE (NEGATIVE) Urine Culture Reflexed NO (NO) Urine Glucose NEGATIVE (NEGATIVE) mg/dL Urine HCG, Qual (Negative) Urine Opiates Level NEGATIVE (NEGATIVE) Ur Methadone NEGATIVE (NEGATIVE) Urine Barbiturates NEGATIVE (NEGATIVE) Ur Phencyclidine (PCP) NEGATIVE (NEGATIVE) Urine Amphetamine NEGATIVE (NEGATIVE) U Benzodiazepine Level NEGATIVE (NEGATIVE) Urine Cocaine NEGATIVE (NEGATIVE) Urine Marijuana (THC) NEGATIVE (NEGATIVE) Specimen Received 12/26/17 1271 - Progress Progress: improved Progress Note: 12/26/17 14:12 Pt states, she feels better, no fever or difficulty breathing, she has been stable. 12/26/17 14:13 I discussed our results with her, she is being discharged home to rest x 2-3 days, apply moist heat to the back, and follow up with her doctor next week. - Departure Time of Disposition: 14:13 Departure Disposition: Home Clinical Impression: Back pain Qualifiers: Back pain location: low back pain Chronicity: acute Back pain laterality: right Sciatica presence: without sciatica Qualified Code(s): M54.5 - Low back pain Condition: Stable Critical Care Time: No Referrals: HENRY FERGUSON [Primary Care Provider] - Instructions: Low Back Pain (DC) Additional Instructions: Rest x 2-3 days, apply moist heat to painful area, return if severe pain, fever > 101 F, or sudden leg weakness, numbness, loss of bladder or bowel control! Prescriptions: Cyclobenzaprine HCl [Flexeril] 10 mg PO TID 5 Days #15 tablet
[2017-12-26 11:20] LABS: Amphetamine,Urine NEGATIVE (NEGATIVE); Barbiturate,Urine NEGATIVE (NEGATIVE); Benzodiazepine,Urine NEGATIVE (NEGATIVE); Cocaine,Urine NEGATIVE (NEGATIVE); Methadone,Urine NEGATIVE (NEGATIVE); Opiate,Urine NEGATIVE (NEGATIVE); PCP,Urine NEGATIVE (NEGATIVE); THC,Urine NEGATIVE (NEGATIVE)
[2017-12-26 11:25] LABS: ALBUMIN 4.7 g/dL (3.5-5.0); ALKALINE PHOSPHATASE 66 U/L (38-126); ANION GAP 15.7 MEQ/L (5-15); BLOOD UREA NITROGEN 6 mg/dL (7-17); CHLORIDE 104 mmol/L (98-107); Calcium 10.1 mg/dL (8.4-10.2); Carbon Dioxide 25 mmol/L (22-30); Creatinine 1 0.68 mg/dL (0.52-1.04); Glucose 125 mg/dL (74-106); LIPASE 55 U/L (23-300); Potassium 3.9 mmol/L (3.5-5.1); SGOT/AST 18 U/L (14-36); SGPT/ALT 17 U/L (0-35); SODIUM 140 mmol/L (137-145); Total Protein 7.8 g/dL (6.3-8.2)
--- NOTE | 2017-12-26 12:56 | XRAY ---
Indication: Flank pain and vomiting. Comparison: August 03, 2011. PA/lateral chest again demonstrates normal heart, lungs, and bony thorax.
--- NOTE | 2017-12-26 13:02 | XRAY ---
Indication: Flank pain and vomiting. Multiple contiguous axial images obtained through the abdomen and pelvis without contrast using renal stone protocol. Comparison: February 18, 2016. Lung bases clear. Heart is not enlarged. Again no renal calculus or evidence for obstructive uropathy in either system. Noncontrasted stomach and bowel loops appear nonobstructed. Normal appendix. No free fluid/air. Remaining liver, gallbladder, pancreas, spleen, adrenal glands, kidneys, ureters, bladder, uterus, and aorta appear unremarkable for noncontrast exam. Osseous structures intact. Impression: 1. Again negative renal calculus or evidence for obstructive uropathy. 2. No new or acute intra-abdominal/pelvic abnormalities on this noncontrast exam. CT DI 19.55
[2017-12-26 14:19] VITALS: BP 112/62; PULSE 78; O2SAT 99
== END 2017-12-26 14:26 | disposition home or self-care (01) ==
LOC: ED 09:58
DX: M54.5 Low back pain (principal); M54.6 Pain in thoracic spine; R10.9 Unspecified abdominal pain
CPT/HCPCS: 36000; 36415; 71046; 74176; 80053; 80307; 81002; 83690; 84703; 85025; 96360; 96374; 96375; 99284; 99285; J1885; J2405

== ENCOUNTER 2018-12-02 11:20 | Emergency (ER) | payer MEDICAID, OTHER ==
--- NOTE | 2018-12-02 11:47 | ERPHSYRPT ---
- History of Present Illness Time Seen by Provider: 12/02/18 11:39 Source: patient Exam Limitations: no limitations Patient Subjective Stated Complaint: Pt states "I have had vaginal bleeding since last december. My family doc keeps saying wait a month, wait a month, my ob keeps saying wait another month, wait another month. I also have a uti I think. " Triage Nursing Assessment: Pt alert and oriented X 3, skin pwd Pt ambulates with an upright steady gait, able to speak in clear full sentences. PT in no apparent respiratory distress. Physician History: 23-year-old white female arrives with complaint of lower abdominal cramping for one week she further states that she has been having vaginal bleeding off and on for one year. She states she's been seen by her family doctor and been told to wait a month and see if it changes. Patient without nausea or vomiting Past medical history includes epileptic seizures, asthma, palpitations, preeclampsia Past surgical history includes negative. Timing/Duration: other (vaginal bleeding off and on for a year. Lower abdominal cramping for one week) Modifying Factors: Improves With: nothing Associated Symptoms: abdominal pain (suprapubic), other (vaginal bleeding off and on for a year), No nausea, No vomiting, No shortness of breath, No heartburn , No diaphoresis, No cough, No chills, No chest pain, No fever, No headaches, No loss of appetite, No malaise, No rash, No syncope, No seizure, No weakness Allergies/Adverse Reactions: Latex, Natural Rubber Allergy (Verified 08/22/17 17:25) Hx Tetanus, Diphtheria Vaccination/Date Given: Yes Hx Influenza Vaccination/Date Given: Yes Hx Pneumococcal Vaccination/Date Given: No Immunizations Up to Date: Yes - Review of Systems Constitutional: No Fever, No Chills Eyes: No Symptoms Ears, Nose, & Throat: No Symptoms Respiratory: No Cough, No Dyspnea Cardiac: No Chest Pain, No Edema, No Syncope Abdominal/Gastrointestinal: Abdominal Pain (Suprapubic cramping), No Nausea, No Vomiting, No Diarrhea, No Constipation, No Hematemesis, No Hematochezia, No Melena, No Dysphagia, No Appetite Changes Genitourinary Symptoms: Dysuria, Frequency, Vaginal Bleeding, No Hematuria, No Hesitancy, No Incontinence, No Urgency, No Urinary Retention, No Flank Pain, No Menorrhagia, No , No Other Musculoskeletal: No Back Pain, No Neck Pain Skin: No Rash Neurological: No Dizziness, No Focal Weakness, No Sensory Changes Psychological: No Symptoms Endocrine: No Symptoms All Other Systems: Reviewed and Negative - Past Medical History Pertinent Past Medical History: Yes Neurological History: Epilepsy, Seizures ENT History: No Pertinent History Cardiac History: Other Respiratory History: Asthma Endocrine Medical History: No Pertinent History Musculoskeletal History: No Pertinent History GI Medical History: No Pertinent History History: No Pertinent History Psycho-Social History: No Pertinent History Female Reproductive Disorders: No Pertinent History Other Medical History: palpitations, pre-eclampsia - Past Surgical History Past Surgical History: No - Social History Smoking Status: Current every day smoker How long have you smoked: 3 years Exposure to second hand smoke: Yes Drug Use: none Patient Lives Alone: No - Female History Hx Last Menstrual Period: constant Hx Now: (unknown) - Nursing Vital Signs Nursing Vital Signs: Initial Vital Signs Temperature 98.0 F 12/02/18 11:30 Pulse Rate 82 12/02/18 11:30 Respiratory Rate 18 12/02/18 11:30 Blood Pressure 140/102 12/02/18 11:30 O2 Sat by Pulse Oximetry 97 12/02/18 11:30 Pain Scale Pain Intensity 6 - Physical Exam General Appearance: no apparent distress, alert Eye Exam: PERRL/EOMI, eyes nml inspection Ears, Nose, Throat Exam: normal ENT inspection, TMs normal, pharynx normal, moist mucous membranes Neck Exam: normal inspection, non-tender, supple, full range of motion Respiratory Exam: normal breath sounds, lungs clear, No respiratory distress Cardiovascular Exam: regular rate/rhythm, normal heart sounds, normal peripheral pulses, capillary refill <2 sec Gastrointestinal/Abdomen Exam: soft, normal bowel sounds, No tenderness, No mass Pelvic Exam: normal external exam, vaginal bleeding (moderate amount of bloodstained clear fluid in vagina), No adnexal tenderness, No adnexal mass, No mass, No cervical motion tenderness Back Exam: normal inspection, normal range of motion, No CVA tenderness, No vertebral tenderness Extremity Exam: normal inspection, normal range of motion, pelvis stable Neurologic Exam: alert, oriented x 3, cooperative, vegetable vendor II-XII nml as tested, normal mood/affect, nml cerebellar function, nml station & gait, sensation nml, No motor deficits Skin Exam: normal color, warm, dry, No rash Lymphatic Exam: No adenopathy SpO2 Interpretation: normal (97%) SpO2: 97 - Course Nursing assessment & vital signs reviewed: Yes Ordered Tests: Active Orders 24 hr Category Date Time Status IV Insertion STAT Care 12/02/18 11:42 Active Pelvic Exam Assist STAT Care 12/02/18 11:43 Active AMYLASE Stat Lab 12/02/18 12:13 Completed CBC W DIFF Stat Lab 12/02/18 12:13 Completed CMP Stat Lab 12/02/18 12:13 Completed HCG QUALITATIVE,SERUM Stat Lab 12/02/18 12:13 Completed LIPASE Stat Lab 12/02/18 12:13 Completed Manual Differential NC Stat Lab 12/02/18 12:13 Completed UA W/RFX UR CULTURE Stat Lab 12/02/18 13:15 Completed Wet Prep Stat Lab 12/02/18 13:15 Completed Medication Summary Discontinued Medications Generic Name Dose Route Start Last Admin Trade Name Freq PRN Reason Stop Dose Admin Ketorolac Tromethamine 30 mg 12/02/18 14:08 12/02/18 14:12 Toradol 30 Mg Injection IV 12/02/18 14:09 30 mg STAT ONE Administration Ketorolac Tromethamine Confirm 12/02/18 14:10 Toradol 30 Mg Injection Administered 12/02/18 14:11 Dose 30 mg .ROUTE .STK-MED ONE Lab/Rad Data: Laboratory Result Diagrams 12/02/18 12:13 12/02/18 12:13 Laboratory Results 12/02/18 12/02/18 12/02/18 Range/Units 13:15 13:15 12:13 WBC (4.0-10.5) K/mm3 RBC (4.1-5.4) M/mm3 Hgb (12.0-16.0) gm/dl Hct (35-47) % MCV (78-100) fl MCH (26-32) pg MCHC (32-36) g/dl RDW (11.5-14.0) % Plt Count (150-450) K/mm3 MPV (6-9.5) fl Segmented Neutrophils (36.0-66.0) % Lymphocytes (Manual) (24-44) % Monocytes (Manual) (0.0-12.0) % Eosinophils (Manual) (0.00-3.0) % Platelet Estimate (NORMAL) RBC Morphology Sodium (137-145) mmol/L Potassium (3.5-5.1) mmol/L Chloride (98-107) mmol/L Carbon Dioxide (22-30) mmol/L Anion Gap (5-15) MEQ/L BUN (7-17) mg/dL Creatinine (0.52-1.04) mg/dL Estimated GFR ML/MIN Glucose (74-106) mg/dL Calcium (8.4-10.2) mg/dL Total Bilirubin (0.2-1.3) mg/dL AST (14-36) U/L ALT (0-35) U/L Alkaline Phosphatase (38-126) U/L Serum Total Protein (6.3-8.2) g/dL Albumin (3.5-5.0) g/dL Amylase (30-110) U/L Lipase (23-300) U/L Serum , Qual NEGATIVE (Negative) Urine Color STRAW (YELLOW) Urine Appearance CLEAR (CLEAR) Urine pH 6.0 (5-6) Ur Specific [place] 1.008 (1.005-1.025) Urine Protein NEGATIVE (Negative) Urine Ketones NEGATIVE (NEGATIVE) Urine Blood LARGE (0-5) Avelino/ul Urine Nitrite NEGATIVE (NEGATIVE) Urine Bilirubin NEGATIVE (NEGATIVE) Urine Urobilinogen NEGATIVE (0-1) mg/dL Ur Leukocyte Esterase NEGATIVE (NEGATIVE) Urine WBC (Auto) 3-5 (0-5) /HPF Urine RBC (Auto) 11-15 (0-2) /HPF U Epithel Cells (Auto) NONE (FEW) /HPF Urine Bacteria (Auto) NONE (NEGATIVE) /HPF Urine Culture Reflexed NO (NO) Urine Glucose NEGATIVE (NEGATIVE) mg/dL WBC (Wet Prep) Rare RBC (Wet Prep) Many Epi Cells (Wet Prep) Few Bacteria (Wet Prep) Few Clue Cells (Wet Prep) None Seen Trichomonas (Wet Prep) None Seen Budding Yeast (Wet Prp) None Seen 12/02/18 12/02/18 Range/Units 12:13 12:13 WBC 7.3 (4.0-10.5) K/mm3 RBC 4.91 (4.1-5.4) M/mm3 Hgb 13.7 (12.0-16.0) gm/dl Hct 41.8 (35-47) % MCV 85.1 (78-100) fl MCH 27.9 (26-32) pg MCHC 32.8 (32-36) g/dl RDW 12.9 (11.5-14.0) % Plt Count 302 (150-450) K/mm3 MPV 9.7 H (6-9.5) fl Segmented Neutrophils 57 (36.0-66.0) % Lymphocytes (Manual) 32 (24-44) % Monocytes (Manual) 7 (0.0-12.0) % Eosinophils (Manual) 4 H (0.00-3.0) % Platelet Estimate NORMAL (NORMAL) RBC Morphology NORMAL Sodium 140 (137-145) mmol/L Potassium 3.8 (3.5-5.1) mmol/L Chloride 104 (98-107) mmol/L Carbon Dioxide 25 (22-30) mmol/L Anion Gap 14.6 (5-15) MEQ/L BUN 8 (7-17) mg/dL Creatinine 0.72 (0.52-1.04) mg/dL Estimated GFR > 60.0 ML/MIN Glucose 94 (74-106) mg/dL Calcium 9.8 (8.4-10.2) mg/dL Total Bilirubin 0.50 (0.2-1.3) mg/dL AST 19 (14-36) U/L ALT 17 (0-35) U/L Alkaline Phosphatase 69 (38-126) U/L Serum Total Protein 7.8 (6.3-8.2) g/dL Albumin 4.2 (3.5-5.0) g/dL Amylase 94 (30-110) U/L Lipase 39 (23-300) U/L Serum , Qual (Negative) Urine Color (YELLOW) Urine Appearance (CLEAR) Urine pH (5-6) Ur Specific [place] (1.005-1.025) Urine Protein (Negative) Urine Ketones (NEGATIVE) Urine Blood (0-5) Avelino/ul Urine Nitrite (NEGATIVE) Urine Bilirubin (NEGATIVE) Urine Urobilinogen (0-1) mg/dL Ur Leukocyte Esterase (NEGATIVE) Urine WBC (Auto) (0-5) /HPF Urine RBC (Auto) (0-2) /HPF U Epithel Cells (Auto) (FEW) /HPF Urine Bacteria (Auto) (NEGATIVE) /HPF Urine Culture Reflexed (NO) Urine Glucose (NEGATIVE) mg/dL WBC (Wet Prep) RBC (Wet Prep) Epi Cells (Wet Prep) Bacteria (Wet Prep) Clue Cells (Wet Prep) Trichomonas (Wet Prep) Budding Yeast (Wet Prp) - Progress Progress: improved Progress Note: 12/02/18 14:03 23-year-old white female with history of epileptic seizures, asthma, palpitations, preeclampsia Patient arrives with complaint of a year of a menstrual bleeding she states that she has been told by her family doctor to recheck after a month however this continues. She states that she has been having lower abdominal cramping for the last 4-5 days. On physical examination patient appears to be stable, she has minimal abdominal tenderness in the suprapubic region she also has a clear bloodstained discharge on vaginal exam. Vitals are stable she was mildly elevated blood pressure on initial arrival however this has improved. Patient's wet prep was essentially normal urinalysis remarkable for 11-13 red cells 3-5 white cells is felt that the urine is contaminated with vaginal blood patient does not appear to be having heavy bleeding. Patient's CBC white blood cell 7.3 hemoglobin 13.7 hematocrit 41.8 platelets 302 , 12/02/18 14:06 Patient's chemistry is normal hCG is negative awaiting GC and chlamydia, I've discussed patient's case with Dr. Stauffer patient appears to be stable will discharge patient she is to follow-up with Dr. Stauffer, 12/02/18 14:28 Patient feeling better after Toradol 30 mg IV Will discharge patient. - Departure Departure Disposition: Home Clinical Impression: Dysmenorrhea, Abnormal uterine bleeding Abdominal pain Qualifiers: Abdominal location: unspecified location Qualified Code(s): R10.9 - Unspecified abdominal pain Condition: Fair Critical Care Time: No Referrals: HENRY STAUFFER [Primary Care Provider] - Additional Instructions: Return home. Plenty of fluids. Naprosyn 500 mg orally twice a day with food as needed for pain. Follow-up with Dr. Stauffer. Return for acute distress or for severe symptoms. Prescriptions: Naproxen 500 mg [Naprosyn 500 MG] 500 mg PO BIDPRN PRN #10 tablet PRN Reason: Pain
[2018-12-02 12:18] LABS: Hematocrit 41.8 % (35-47); Hemoglobin 13.7 gm/dl (12.0-16.0); Mean Cell Volume 85.1 fl (78-100); Mean Corpuscular Hemoglobin 27.9 pg (26-32); Mean Corpuscular Hgb Concent. 32.8 g/dl (32-36); Mean Platelet Volume 9.7 fl (6-9.5); Platelet Count 302 K/mm3 (150-450); Red Blood Count 4.91 M/mm3 (4.1-5.4); Red Cell Distribution Width 12.9 % (11.5-14.0); White Blood Count 7.3 K/mm3 (4.0-10.5)
[2018-12-02 12:39] LABS: ALBUMIN 4.2 g/dL (3.5-5.0); ALKALINE PHOSPHATASE 69 U/L (38-126); AMYLASE 94 U/L (30-110); ANION GAP 14.6 MEQ/L (5-15); BLOOD UREA NITROGEN 8 mg/dL (7-17); CHLORIDE 104 mmol/L (98-107); Calcium 9.8 mg/dL (8.4-10.2); Carbon Dioxide 25 mmol/L (22-30); Creatinine 1 0.72 mg/dL (0.52-1.04); Glucose 94 mg/dL (74-106); LIPASE 39 U/L (23-300); Potassium 3.8 mmol/L (3.5-5.1); SGOT/AST 19 U/L (14-36); SGPT/ALT 17 U/L (0-35); SODIUM 140 mmol/L (137-145); Total Protein 7.8 g/dL (6.3-8.2)
[2018-12-02 13:19] LABS: Eosinophil 4 % (0.00-3.0); Lymphocytes 32 % (24-44); Monocyte 7 % (0.0-12.0); Neutrophils 57 % (36.0-66.0); Platelet Estimate NORMAL (NORMAL); Total Cells Counted 100
[2018-12-02 13:31] LABS: Appearance CLEAR (CLEAR); Bilirubin NEGATIVE (NEGATIVE); Blood LARGE Ery/ul (0-5); Glucose NEGATIVE (NEGATIVE); Ketones NEGATIVE (NEGATIVE); Leukocyte Esterase NEGATIVE (NEGATIVE); Nitrite NEGATIVE (NEGATIVE); Protein,Urine Dip NEGATIVE (Negative); Specific Gravity 1.008 (1.005-1.025); Urobilinogen NEGATIVE mg/dL (0-1)
[2018-12-02 13:32] LABS: Bacteria Few; Clue Cells None Seen
[2018-12-02 13:33] LABS: Red Blood Cells Many; Trichomonas None Seen; White Blood Cells Rare; Yeast None Seen
[2018-12-02] MEDS ORDERED: TORAdol 30 mg Injection IV ONE (14:08)
[2018-12-02] MEDS ORDERED: TORAdol 30 mg Injection ONE (14:10)
[2018-12-02 14:52] VITALS: BP 118/69; PULSE 72; O2SAT 98
[2018-12-02 15:20] LABS: CHLAMYDIA DNA NEGATIVE; N GONORRHOEAE DNA NEGATIVE
== END 2018-12-02 14:52 | disposition home or self-care (01) ==
LOC: ED 11:20
DX: N94.6 Dysmenorrhea, unspecified (principal); N93.9 Abnormal uterine and vaginal bleeding, unspecified; R10.9 Unspecified abdominal pain; G40.909 Epilepsy, unspecified, not intractable, without status epilepticus; J45.909 Unspecified asthma, uncomplicated
CPT/HCPCS: 36000; 36415; 80053; 81001; 81025; 82150; 83690; 85025; 87210; 87490; 87590; 96374; 99284; J1885

== ENCOUNTER 2018-12-24 15:27 | Emergency (ER) | payer MEDICAID ==
[2018-12-24 16:01] VITALS: PULSE 72; O2SAT 99
[2018-12-24] MEDS ORDERED: DELTASONE 20 MG PO ONE (16:03)
[2018-12-24] MEDS ORDERED: DELTASONE 20 MG ONE (16:18)
--- NOTE | 2018-12-24 16:25 | ERPHSYRPT ---
- History of Present Illness Time Seen by Provider: 12/24/18 16:00 Source: patient Exam Limitations: clinical condition Patient Subjective Stated Complaint: redness and rash to both lower arms and back that comes and goes x 1 1/2- 2 weeks. had lip swelling but took an allergy pill and it went away. not sure if there is a rash on her back but feels like there is. c/o itching Triage Nursing Assessment: alert and in no distress. states that she had her lip swollen 1 1/2 weeks ago and took an allergy pill and it went away. intermittent rash to both lower arms with itching and redness. none noted at this time. no SOB, no difficulty swallowing. lungs clear. noted slight swelling to left eyelid Physician History: PATIENT WITH A HISTORY OF ASTHMA COMPLAINS OF INTERMITTENT RASH ASSOCIATED WITH ITCHING OVER THE PAST 2 WEEKS. DENIES DIFFICULTY BREATHING OR SWALLOWING. HAS UNKNOWN EXPOSURE. Timing/Duration: week(s) Quality: itchy Severity: moderate Location: generalized Possible Causes: no cause identified Modifying Factors: Improves With: scratching Associated Symptoms: change in skin texture Allergies/Adverse Reactions: Latex, Natural Rubber Allergy (Verified 08/22/17 17:25) Hx Tetanus, Diphtheria Vaccination/Date Given: Yes Hx Influenza Vaccination/Date Given: Yes Hx Pneumococcal Vaccination/Date Given: No Immunizations Up to Date: Yes - Review of Systems Constitutional: No Fever, No Chills Eyes: No Symptoms Ears, Nose, & Throat: No Symptoms Respiratory: No Symptoms, No Cough, No Dyspnea Cardiac: No Symptoms, No Chest Pain, No Edema, No Syncope Abdominal/Gastrointestinal: No Abdominal Pain, No Nausea, No Vomiting, No Diarrhea Genitourinary Symptoms: No Dysuria Musculoskeletal: No Back Pain, No Neck Pain Skin: Pruritis, Skin Lesions, No Rash Neurological: No Symptoms, No Dizziness, No Focal Weakness, No Sensory Changes Psychological: No Symptoms Endocrine: No Symptoms Hematologic/Lymphatic: No Symptoms All Other Systems: Reviewed and Negative - Past Medical History Pertinent Past Medical History: Yes Neurological History: Epilepsy, Seizures ENT History: No Pertinent History Cardiac History: Other Respiratory History: Asthma Endocrine Medical History: No Pertinent History Musculoskeletal History: No Pertinent History GI Medical History: No Pertinent History History: No Pertinent History Psycho-Social History: No Pertinent History Female Reproductive Disorders: No Pertinent History Other Medical History: palpitations, pre-eclampsia - Past Surgical History Past Surgical History: No - Social History Smoking Status: Current every day smoker How long have you smoked: 3 years Exposure to second hand smoke: No Drug Use: marijuana Patient Lives Alone: No - Female History Hx Now: No - Nursing Vital Signs Nursing Vital Signs: Initial Vital Signs Temperature 98.0 F 12/24/18 15:48 Pulse Rate 72 12/24/18 15:48 Respiratory Rate 16 12/24/18 15:48 O2 Sat by Pulse Oximetry 99 12/24/18 15:48 Pain Scale Pain Intensity 0 - Physical Exam General Appearance: no apparent distress, alert Eye Exam: PERRL/EOMI, eyes nml inspection Ears, Nose, Throat Exam: normal ENT inspection, pharynx normal, moist mucous membranes, other (POSTERIOR PHARYNX WITHOUT ANGIOEDEMA) Neck Exam: normal inspection, non-tender, supple, full range of motion Respiratory Exam: normal breath sounds, lungs clear, No respiratory distress Cardiovascular Exam: regular rate/rhythm, normal heart sounds Gastrointestinal/Abdomen Exam: soft, mass, No tenderness Back Exam: normal inspection, normal range of motion, No CVA tenderness, No vertebral tenderness Extremity Exam: normal inspection, normal range of motion Neurologic Exam: alert, oriented x 3, cooperative, normal mood/affect, sensation nml, No motor deficits Skin Exam: rash (FINE FACIAL RASH OVER FACE NON RAISED OR VESICULAR, BILATERAL UPPER EYELIDS WITH MINIMAL EDEMA) SpO2: 99 Ordered Tests: Medication Summary Discontinued Medications Generic Name Dose Route Start Last Admin Trade Name Jonahq PRN Reason Stop Dose Admin Prednisone 60 mg 12/24/18 16:03 12/24/18 16:19 Deltasone 20 Mg PO 12/24/18 16:04 60 mg STAT ONE Administration - Progress Progress Note: 12/24/18 16:26 PREDNISONE 60MG ORALLY Counseled pt/family regarding: diagnosis, need for follow-up - Departure Departure Disposition: Home Clinical Impression: CONTACT DERMATITIS Condition: Stable Critical Care Time: No Referrals: HENRY FERGUSON [Primary Care Provider] - Additional Instructions: TAKE OVER THE COUNTER BENADRYL 50MG EVERY 4 HOURS NEEDED FOR ITCHING. PREDNISONE 20MG, 2 TABLETS DAILY FOR 5 DAYS. CONSULT YOUR PRIMARY CARE PROVIDER FOR FOLLOWUP IN 1 WEEK. Prescriptions: Prednisone 20 mg [Deltasone 20 mg] 2 tab PO DAILY #10 tablet
== END 2018-12-24 16:48 | disposition home or self-care (01) ==
LOC: ED 15:27
DX: L25.9 Unspecified contact dermatitis, unspecified cause (principal); G40.909 Epilepsy, unspecified, not intractable, without status epilepticus; J45.909 Unspecified asthma, uncomplicated
CPT/HCPCS: 99283; A9270-GY

== ENCOUNTER 2019-02-02 03:36 | Emergency (ER) | payer SELFPAY ==
[2019-02-02 03:48] VITALS: O2SAT 99
[2019-02-02] MEDS ORDERED: TORAdol 30 mg Injection IM ONE (03:56)
[2019-02-02] MEDS ORDERED: AMOXIL 500 MG PO ONE (03:57)
[2019-02-02] MEDS ORDERED: AMOXIL 500 MG ONE (03:59)
[2019-02-02] MEDS ORDERED: TORAdol 30 mg Injection ONE (03:59)
--- NOTE | 2019-02-02 04:04 | ERPHSYRPT ---
- History of Present Illness Time Seen by Provider: 02/02/19 03:53 Source: patient Exam Limitations: no limitations Patient Subjective Stated Complaint: pt states she has pain in the lt side of her mouth. states she has a bad tooth on the bottom and a bad tooth on the top Triage Nursing Assessment: pt alert and oriented. answers questions approp. pt ambultory with steady gait noted. respirations nonlabored with lungs cta. dental caries noted to upper and lower teeth. Physician History: 23-year-old white female arrives with complaint of pain in the left side of her mouth symptoms since 6:00 last night. Patient states she's had pain in her mouth off-and-on for several months secondary to carious teeth both upper and lower in the posterior molar region on the left. Patient states she tried Motrin and Tylenol home without relief. Past medical history includes epilepsy, seizures, asthma, palpitations, preeclampsia. Social history positive tobacco use denies alcohol or illicit drug use. Timing/Duration: yesterday (symptoms since 6:00 last night) Severity: moderate Modifying Factors: Improves With: nothing Associated Symptoms: No nausea, No vomiting, No abdominal pain, No shortness of breath, No heartburn, No diaphoresis, No cough, No chills, No chest pain, No fever, No headaches, No loss of appetite, No malaise, No rash, No syncope, No seizure, No weakness Allergies/Adverse Reactions: Latex, Natural Rubber Allergy (Verified 08/22/17 17:25) Hx Tetanus, Diphtheria Vaccination/Date Given: Yes Hx Influenza Vaccination/Date Given: Yes Hx Pneumococcal Vaccination/Date Given: No Immunizations Up to Date: Yes - Review of Systems Constitutional: No Fever, No Chills Eyes: No Symptoms Ears, Nose, & Throat: Mouth Pain, Other (pain in left molar areaboth maxillary and mandibular), No Ear Pain, No Ear Discharge, No Hearing Changes, No Tinnitus , No Nose Pain, No Nose Congestion, No Nose Discharge, No Sinus Drainage, No Epistaxis, No Mouth Swelling, No Loose Teeth, No Throat Pain, No Throat Swelling , No Hoarse, No Painful Swallowing, No Snoring, No Stridor Respiratory: No Cough, No Dyspnea Cardiac: No Chest Pain, No Edema, No Syncope Abdominal/Gastrointestinal: No Abdominal Pain, No Nausea, No Vomiting, No Diarrhea Genitourinary Symptoms: No Dysuria Musculoskeletal: No Back Pain, No Neck Pain Skin: No Rash Neurological: No Dizziness, No Focal Weakness, No Sensory Changes Psychological: No Symptoms Endocrine: No Symptoms All Other Systems: Reviewed and Negative - Past Medical History Pertinent Past Medical History: Yes Neurological History: Epilepsy, Seizures ENT History: No Pertinent History Cardiac History: Other Respiratory History: Asthma Endocrine Medical History: No Pertinent History Musculoskeletal History: No Pertinent History GI Medical History: No Pertinent History History: No Pertinent History Psycho-Social History: No Pertinent History Female Reproductive Disorders: No Pertinent History Other Medical History: palpitations, pre-eclampsia - Past Surgical History Past Surgical History: No - Social History Smoking Status: Current every day smoker How long have you smoked: 3 years Exposure to second hand smoke: No Drug Use: none Patient Lives Alone: No - Female History Hx Last Menstrual Period: 3 days ago Hx Now: No - Nursing Vital Signs Nursing Vital Signs: Initial Vital Signs Temperature 98.1 F 02/02/19 03:40 Pulse Rate 77 02/02/19 03:40 Respiratory Rate 18 02/02/19 03:40 Blood Pressure 145/87 02/02/19 03:40 O2 Sat by Pulse Oximetry 99 02/02/19 03:40 Pain Scale Pain Intensity 10 - Physical Exam General Appearance: moderate distress, alert Eye Exam: PERRL/EOMI, eyes nml inspection Ears, Nose, Throat Exam: normal ENT inspection, TMs normal, pharynx normal, moist mucous membranes, other (carious teeth the mandibular and maxillary molars on the left) Neck Exam: normal inspection, non-tender, supple, full range of motion Respiratory Exam: normal breath sounds, lungs clear, No respiratory distress Cardiovascular Exam: regular rate/rhythm, normal heart sounds, normal peripheral pulses, capillary refill <2 sec Gastrointestinal/Abdomen Exam: soft, normal bowel sounds, No tenderness, No mass Back Exam: normal inspection, normal range of motion, No CVA tenderness, No vertebral tenderness Extremity Exam: normal inspection, normal range of motion, pelvis stable Neurologic Exam: alert, oriented x 3, cooperative, clearance coordinator II-XII nml as tested, normal mood/affect, nml cerebellar function, nml station & gait, sensation nml, No motor deficits Skin Exam: normal color, warm, dry, No rash Lymphatic Exam: No adenopathy SpO2 Interpretation: normal (99%) SpO2: 99 - Course Nursing assessment & vital signs reviewed: Yes Ordered Tests: Medication Summary Discontinued Medications Generic Name Dose Route Start Last Admin Trade Name Freq PRN Reason Stop Dose Admin Amoxicillin 500 mg 02/02/19 03:57 Amoxil 500 Mg PO 02/02/19 03:58 STAT ONE Amoxicillin Confirm 02/02/19 03:59 Amoxil 500 Mg Administered 02/02/19 04:00 Dose 500 mg .ROUTE .STK-MED ONE Ketorolac Tromethamine 60 mg 02/02/19 03:56 Toradol 30 Mg Injection IM 02/02/19 03:57 STAT ONE Ketorolac Tromethamine Confirm 02/02/19 03:59 Toradol 30 Mg Injection Administered 02/02/19 04:00 Dose 60 mg .ROUTE .STK-MED ONE - Progress Progress: improved Progress Note: 02/02/19 04:00 23-year-old white female arrives with complaint of pain in her mandibular region and maxillary region on the left symptoms since last night she states she 's had abdominal pain off and on for several months. Patient denies states her last menstrual period was 3 days ago. Will go ahead and give patient Toradol [address] patient on amoxicillin 500 mg orally 3 times today will write for a small amount of [place] . - Departure Departure Disposition: Home Clinical Impression: Pain, dental, Dental caries Condition: Fair Critical Care Time: No Referrals: HENRY FERGUSON [Primary Care Provider] - Additional Instructions: Return home. Cold packs to area 24-48 hours (external) Amoxicillin as prescribed. [place] as prescribed. Followup with your dentist. Return for acute distress or for severe symptoms. Prescriptions: Hydrocodone/APAP 5-325 Tab^^^ [[place] 5-325 Tablet^^^] 1 tab PO Q4HPRN PRN #10 tablet MDD 6 PRN Reason: dental pain Amoxicillin 500 mg PO TID #30 capsule
[2019-02-02 04:26] VITALS: BP 117/81; PULSE 69
== END 2019-02-02 04:26 | disposition home or self-care (01) ==
LOC: ED 03:36
DX: K08.89 Other specified disorders of teeth and supporting structures (principal); K02.9 Dental caries, unspecified
CPT/HCPCS: 96372; 99283; J1885; A9270-GY

== ENCOUNTER 2019-05-30 02:36 | Emergency (ER) | payer MEDICAID ==
--- NOTE | 2019-05-30 02:42 | ERPHSYRPT ---
- History of Present Illness Time Seen by Provider: 05/30/19 02:42 Source: patient, family Exam Limitations: no limitations Physician History: 23 y/o white female presents to ED with complaint of vaginal bleeding yesterday and today only spotting. she has mild suprapubic cramping. pt has h/o ovarian cysts. pt states she is unsure when her last menstrual period was. ? last month or month before. no urinary sx. Timing/Duration: yesterday Activites at Onset: none Quality: cramping (mild) Onset Location: suprapubic, vaginal Pain Radiation: none Severity of Pain-Max: mild Severity of Pain-Current: mild Prior abdominal problems: none Modifying Factors: Improves With: nothing Associated Symptoms: vaginal discharge (bleeding) Allergies/Adverse Reactions: Latex, Natural Rubber Allergy (Verified 08/22/17 17:25) Hx Tetanus, Diphtheria Vaccination/Date Given: Yes Hx Influenza Vaccination/Date Given: Yes Hx Pneumococcal Vaccination/Date Given: No - Review of Systems Constitutional: No Symptoms Eyes: No Symptoms Ears, Nose, & Throat: No Symptoms Respiratory: No Symptoms Cardiac: No Symptoms Abdominal/Gastrointestinal: Abdominal Pain (mild suprapubic) Genitourinary Symptoms: Vaginal Bleeding Musculoskeletal: No Symptoms Skin: No Symptoms Neurological: No Symptoms Psychological: No Symptoms Endocrine: No Symptoms Hematologic/Lymphatic: No Symptoms Immunological/Allergic: No Symptoms All Other Systems: Reviewed and Negative - Past Medical History Pertinent Past Medical History: Yes Neurological History: Epilepsy, Seizures ENT History: No Pertinent History Cardiac History: Other Respiratory History: Asthma Endocrine Medical History: No Pertinent History Musculoskeletal History: No Pertinent History GI Medical History: No Pertinent History History: No Pertinent History Psycho-Social History: No Pertinent History Female Reproductive Disorders: No Pertinent History Other Medical History: palpitations, pre-eclampsia - Past Surgical History Past Surgical History: No Neuro Surgical History: No Pertinent History Cardiac: No Pertinent History Respiratory: No Pertinent History Gastrointestinal: No Pertinent History Genitourinary: No Pertinent History Musculoskeletal: No Pertinent History Female Surgical History: No Pertinent History - Social History Smoking Status: Current every day smoker How long have you smoked: 3 years Exposure to second hand smoke: No Drug Use: none Patient Lives Alone: No - Nursing Vital Signs Nursing Vital Signs: Initial Vital Signs Temperature 98.8 F 05/30/19 02:45 Pulse Rate 89 05/30/19 02:45 Respiratory Rate 18 05/30/19 02:45 Blood Pressure 119/68 05/30/19 02:45 O2 Sat by Pulse Oximetry 99 05/30/19 02:45 Pain Scale Pain Intensity 8 - Physical Exam General Appearance: no apparent distress, alert, anxiety Eye Exam: PERRL/EOMI, eyes nml inspection Ears, Nose, Throat Exam: normal ENT inspection, moist mucous membranes Neck Exam: normal inspection, non-tender, supple, full range of motion Respiratory Exam: normal breath sounds, lungs clear, airway intact, No chest tenderness, No respiratory distress Cardiovascular Exam: regular rate/rhythm, normal heart sounds, normal peripheral pulses Gastrointestinal/Abdomen Exam: soft, normal bowel sounds, No tenderness Pelvic Exam: not done Rectal Exam: not done Back Exam: normal inspection, normal range of motion, No CVA tenderness, No vertebral tenderness Extremity Exam: normal inspection, normal range of motion, pelvis stable Neurologic Exam: alert, oriented x 3, cooperative, 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 Skin Exam: normal color, warm, dry Lymphatic Exam: No adenopathy SpO2 Interpretation: normal O2 Delivery: Room Air Ordered Tests: Active Orders 24 hr Category Date Time Status IV Insertion STAT Care 05/30/19 02:53 Active CBC W DIFF Stat Lab 05/30/19 03:12 Completed CMP Stat Lab 05/30/19 03:12 Completed CULTURE,URINE Stat Lab 05/30/19 03:12 Received HCG, Quantitative (Inhouse) Stat Lab 05/30/19 03:12 Completed HCG,QUALITATIVE URINE Stat Lab 05/30/19 03:12 Completed UA W/RFX UR CULTURE Stat Lab 05/30/19 03:12 Completed Medication Summary Discontinued Medications Generic Name Dose Route Start Last Admin Trade Name Yifan PRN Reason Stop Dose Admin Cephalexin HCl 500 mg 05/30/19 03:23 05/30/19 03:30 Keflex 500 Mg PO 05/30/19 03:24 500 mg STAT ONE Administration Cephalexin HCl Confirm 05/30/19 03:28 Keflex 500 Mg Administered 05/30/19 03:29 Dose 500 mg .ROUTE .STK-MED ONE Sodium Chloride 1,000 mls @ 999 mls/hr 05/30/19 02:53 05/30/19 03:19 Sodium Chloride 0.9% 1000 Ml IV 05/30/19 03:53 999 mls/hr .Q1H1M STA Administration Sodium Chloride Confirm 05/30/19 03:16 Sodium Chloride 0.9% 1000 Ml Administered 05/30/19 03:17 Dose 1,000 mls @ ud .ROUTE .STK-MED ONE Lab/Rad Data: Laboratory Result Diagrams 05/30/19 03:12 05/30/19 03:12 Laboratory Results 05/30/19 05/30/19 05/30/19 Range/Units 03:12 03:12 03:12 WBC (4.0-10.5) K/mm3 RBC (4.1-5.4) M/mm3 Hgb (12.0-16.0) gm/dl Hct (35-47) % MCV (78-100) fl MCH (26-32) pg MCHC (32-36) g/dl RDW (11.5-14.0) % Plt Count (150-450) K/mm3 MPV (6-9.5) fl Gran % (36.0-66.0) % Eos # (Auto) (0-0.5) Absolute Lymphs (auto) (1.0-4.6) Absolute Monos (auto) (0.0-1.3) Lymphocytes % (24.0-44.0) % Monocytes % (0.0-12.0) % Eosinophils % (0.00-5.0) % Basophils % (0.0-0.4) % Absolute Granulocytes (1.4-6.9) Basophils # (0-0.4) Sodium (137-145) mmol/L Potassium (3.5-5.1) mmol/L Chloride (98-107) mmol/L Carbon Dioxide (22-30) mmol/L Anion Gap (5-15) MEQ/L BUN (7-17) mg/dL Creatinine (0.52-1.04) mg/dL Estimated GFR ML/MIN Glucose (74-106) mg/dL Calcium (8.4-10.2) mg/dL Total Bilirubin (0.2-1.3) mg/dL AST (14-36) U/L ALT (0-35) U/L Alkaline Phosphatase (38-126) U/L Serum Total Protein (6.3-8.2) g/dL Albumin (3.5-5.0) g/dL Beta HCG, Quant 56983 mIU/ml Urine Color STRAW (YELLOW) Urine Appearance CLEAR (CLEAR) Urine pH 7.0 (5-6) Ur Specific [place] 1.006 (1.005-1.025) Urine Protein NEGATIVE (Negative) Urine Ketones TRACE (NEGATIVE) Urine Blood SMALL (0-5) Avelino/ul Urine Nitrite NEGATIVE (NEGATIVE) Urine Bilirubin NEGATIVE (NEGATIVE) Urine Urobilinogen NEGATIVE (0-1) mg/dL Ur Leukocyte Esterase SMALL (NEGATIVE) Urine WBC (Auto) 3-5 (0-5) /HPF Urine RBC (Auto) 0-2 (0-2) /HPF U Epithel Cells (Auto) RARE (FEW) /HPF Urine Bacteria (Auto) NONE (NEGATIVE) /HPF Urine Mucus (Auto) SLIGHT (NEGATIVE) /HPF Urine Culture Reflexed YES (NO) Urine Glucose NEGATIVE (NEGATIVE) mg/dL Urine HCG, Qual POSITIVE (Negative) 05/30/19 05/30/19 Range/Units 03:12 03:12 WBC 12.0 H (4.0-10.5) K/mm3 RBC 4.59 (4.1-5.4) M/mm3 Hgb 13.4 (12.0-16.0) gm/dl Hct 39.6 (35-47) % MCV 86.3 (78-100) fl MCH 29.2 (26-32) pg MCHC 33.8 (32-36) g/dl RDW 13.3 (11.5-14.0) % Plt Count 323 (150-450) K/mm3 MPV 9.7 H (6-9.5) fl Gran % 88.1 H (36.0-66.0) % Eos # (Auto) 0.01 (0-0.5) Absolute Lymphs (auto) 1.16 (1.0-4.6) Absolute Monos (auto) 0.25 (0.0-1.3) Lymphocytes % 9.6 L (24.0-44.0) % Monocytes % 2.1 (0.0-12.0) % Eosinophils % 0.1 (0.00-5.0) % Basophils % 0.1 (0.0-0.4) % Absolute Granulocytes 10.60 H (1.4-6.9) Basophils # 0.01 (0-0.4) Sodium 139 (137-145) mmol/L Potassium 4.0 (3.5-5.1) mmol/L Chloride 106 (98-107) mmol/L Carbon Dioxide 20 L (22-30) mmol/L Anion Gap 16.7 H (5-15) MEQ/L BUN 8 (7-17) mg/dL Creatinine 0.58 (0.52-1.04) mg/dL Estimated GFR > 60.0 ML/MIN Glucose 122 H (74-106) mg/dL Calcium 9.7 (8.4-10.2) mg/dL Total Bilirubin 0.30 (0.2-1.3) mg/dL AST 15 (14-36) U/L ALT 10 (0-35) U/L Alkaline Phosphatase 51 (38-126) U/L Serum Total Protein 7.7 (6.3-8.2) g/dL Albumin 4.5 (3.5-5.0) g/dL Beta HCG, Quant mIU/ml Urine Color (YELLOW) Urine Appearance (CLEAR) Urine pH (5-6) Ur Specific [place] (1.005-1.025) Urine Protein (Negative) Urine Ketones (NEGATIVE) Urine Blood (0-5) Avelino/ul Urine Nitrite (NEGATIVE) Urine Bilirubin (NEGATIVE) Urine Urobilinogen (0-1) mg/dL Ur Leukocyte Esterase (NEGATIVE) Urine WBC (Auto) (0-5) /HPF Urine RBC (Auto) (0-2) /HPF U Epithel Cells (Auto) (FEW) /HPF Urine Bacteria (Auto) (NEGATIVE) /HPF Urine Mucus (Auto) (NEGATIVE) /HPF Urine Culture Reflexed (NO) Urine Glucose (NEGATIVE) mg/dL Urine HCG, Qual (Negative) - Progress Progress: improved Air Movement: good Blood Culture(s) Obtained: No Antibiotics given: Yes Counseled pt/family regarding: lab results, diagnosis, need for follow-up - Departure Departure Disposition: Home Clinical Impression: UTI (urinary tract infection), Vaginal bleeding during Condition: Stable Critical Care Time: No Referrals: HONORIO GUERRA MD [Primary Care Provider] - Additional Instructions: drink plenty of fluid. follow up with primary doctor/machine splitter next week for further management including repeat quantitative HCG Prescriptions: Cephalexin Mh 500 mg [Keflex 500 mg] 500 mg PO TID #21 capsule
[2019-05-30] MEDS ORDERED: Sodium Chloride 0.9% 1000 ML 1,000 ML IV STA (02:53)
[2019-05-30 03:12] LABS: Appearance CLEAR (CLEAR); Bilirubin NEGATIVE (NEGATIVE); Blood SMALL Ery/ul (0-5); Epithelial Cells RARE /HPF (FEW); Glucose NEGATIVE (NEGATIVE); Ketones TRACE (NEGATIVE); Leukocyte Esterase SMALL (NEGATIVE); Mucus SLIGHT /HPF (NEGATIVE); Nitrite NEGATIVE (NEGATIVE); Protein,Urine Dip NEGATIVE (Negative); RBC 0-2 /HPF (0-2); Specific Gravity 1.006 (1.005-1.025); Urobilinogen NEGATIVE mg/dL (0-1)
[2019-05-30 03:13] LABS: BASOPHIL % 0.1 % (0.0-0.4); Basophil (Absolute #) 0.01 (0-0.4); Eosinophil % 0.1 % (0.00-5.0); Eosinophil (Absolute #) 0.01 (0-0.5); Granulocytes % 88.1 % (36.0-66.0); Hematocrit 39.6 % (35-47); Hemoglobin 13.4 gm/dl (12.0-16.0); Lymphocyte (Absolute #) 1.16 (1.0-4.6); Lymphocytes % 9.6 % (24.0-44.0); Mean Cell Volume 86.3 fl (78-100); Mean Corpuscular Hemoglobin 29.2 pg (26-32); Mean Corpuscular Hgb Concent. 33.8 g/dl (32-36); Mean Platelet Volume 9.7 fl (6-9.5); Monocyte (Absolute #) 0.25 (0.0-1.3); Monocytes % 2.1 % (0.0-12.0); Platelet Count 323 K/mm3 (150-450); Red Blood Count 4.59 M/mm3 (4.1-5.4); Red Cell Distribution Width 13.3 % (11.5-14.0)
[2019-05-30] MEDS ORDERED: Sodium Chloride 0.9% 1000 ML 1,000 ML ONE (03:16)
[2019-05-30] MEDS ORDERED: KEFLEX 500 MG PO ONE (03:23)
[2019-05-30 03:24] LABS: ALBUMIN 4.5 g/dL (3.5-5.0); ALKALINE PHOSPHATASE 51 U/L (38-126); ANION GAP 16.7 MEQ/L (5-15); BLOOD UREA NITROGEN 8 mg/dL (7-17); CHLORIDE 106 mmol/L (98-107); Calcium 9.7 mg/dL (8.4-10.2); Carbon Dioxide 20 mmol/L (22-30); Creatinine 1 0.58 mg/dL (0.52-1.04); Glucose 122 mg/dL (74-106); SGOT/AST 15 U/L (14-36); SGPT/ALT 10 U/L (0-35); SODIUM 139 mmol/L (137-145); Total Protein 7.7 g/dL (6.3-8.2)
[2019-05-30] MEDS ORDERED: KEFLEX 500 MG ONE (03:28)
[2019-05-30 04:17] VITALS: BP 114/51; PULSE 73; O2SAT 100
== END 2019-05-30 04:30 | disposition home or self-care (01) ==
LOC: ED 02:36
DX: O23.40 Unspecified infection of urinary tract in pregnancy, unspecified trimester (principal); Z3A.00 Weeks of gestation of pregnancy not specified; O20.9 Hemorrhage in early pregnancy, unspecified
CPT/HCPCS: 36000; 36415; 80053; 81001; 84702; 84703; 85025; 87086; 96360; 99284; A9270-GY

== ENCOUNTER 2019-10-16 13:15 | Observation (INO) | payer OTHER ==
[2019-10-16 16:44] VITALS: BP 116/62; PULSE 85
== END 2019-10-16 14:50 | disposition home or self-care (01) ==
LOC: OB 13:15
PROVIDERS: ADMIT Family Medicine; ATTEND Family Medicine
DX: Z34.82 Encounter for supervision of other normal pregnancy, second trimester (principal)
CPT/HCPCS: 59025; G0378

== ENCOUNTER 2020-01-05 15:55 | Observation (INO) | payer OTHER ==
[2020-01-05 16:32] LABS: Hematocrit 37.4 % (35-47); Hemoglobin 11.9 gm/dl (12.0-16.0); Mean Cell Volume 82.9 fl (78-100); Mean Corpuscular Hemoglobin 26.4 pg (26-32); Mean Corpuscular Hgb Concent. 31.8 g/dl (32-36); Mean Platelet Volume 10.2 fl (7.5-11.0); Platelet Count 305 K/mm3 (150-450); Red Blood Count 4.51 M/mm3 (4.1-5.4); Red Cell Distribution Width 14.1 % (11.5-14.0); White Blood Count 18.7 K/mm3 (4.0-10.5)
[2020-01-05 16:49] LABS: ALBUMIN 3.6 g/dL (3.5-5.0); ALKALINE PHOSPHATASE 132 U/L (38-126); ANION GAP 14.2 MEQ/L (5-15); BLOOD UREA NITROGEN 7 mg/dL (7-17); CHLORIDE 105 mmol/L (98-107); Calcium 9.9 mg/dL (8.4-10.2); Carbon Dioxide 19 mmol/L (22-30); Creatinine 1 0.43 mg/dL (0.52-1.04); Glucose 80 mg/dL (74-106); Potassium 4.2 mmol/L (3.5-5.1); SGOT/AST 17 U/L (14-36); SGPT/ALT 14 U/L (0-35); SODIUM 134 mmol/L (137-145); Total Protein 7.1 g/dL (6.3-8.2)
[2020-01-05 16:59] LABS: Lymphocytes 18 % (24-44); Monocyte 12 % (0.0-12.0); Neutrophils 70 % (36.0-66.0); Total Cells Counted 100
[2020-01-05 17:02] LABS: Polychromasia 1+
[2020-01-05 17:03] LABS: ANISOCYTOSIS 1+; Platelet Estimate NORMAL (NORMAL)
--- NOTE | 2020-01-05 17:18 | XRAY ---
Indication: Left lower quadrant pain. 2-dimensional OB ultrasound performed. Comparison: August 27, 2019. Again there is a single viable intrauterine now in cephalic presentation. heart rate 138 BPM. anatomy previously documented. Visualized stomach and bladder are unremarkable. Visualized posterior placenta unremarkable. BPD measures 9.44 cm corresponding to 38 weeks 3 days. HC measures 33.12 cm corresponding to 37 weeks 5 days. AC measures 32.46 cm corresponding to 36 weeks 3 days. FL measures 7.27 cm corresponding to 37 weeks 2 days. HUNG is 10.7 cm. Impression: Again single viable intrauterine with mean gestational age 37 weeks 3 days. Normal progression of . No new/acute findings.
--- NOTE | 2020-01-05 17:20 | XRAY ---
Indication: Left lower quadrant pain. Ultrasound biophysical profile study was performed. There is a single viable intrauterine with heart rate 138 BPM. Four-quadrant HUNG is 10.7 cm. 2 points given for movements, tone, and qualitative amniotic fluid volume. 0 points given for breathing. Impression: Total biophysical profile score is 6 out of 8.
[2020-01-05] MEDS ORDERED: Lactated Ringers 1,000 ML IV SCH (18:00)
[2020-01-05 18:07] LABS: Appearance CLEAR (CLEAR); Bilirubin NEGATIVE (NEGATIVE); Blood NEGATIVE Ery/ul (0-5); Epithelial Cells RARE /HPF (FEW); Glucose NEGATIVE (NEGATIVE); Ketones NEGATIVE (NEGATIVE); Leukocyte Esterase NEGATIVE (NEGATIVE); Mucus SLIGHT /HPF (NEGATIVE); Nitrite NEGATIVE (NEGATIVE); Protein,Urine Dip NEGATIVE (Negative); Specific Gravity 1.014 (1.005-1.025); Urobilinogen NEGATIVE mg/dL (0-1); WBC 0-2 /HPF (0-5)
[2020-01-05 18:20] LABS: Amphetamine,Urine NEGATIVE (NEGATIVE); Barbiturate,Urine NEGATIVE (NEGATIVE); Benzodiazepine,Urine NEGATIVE (NEGATIVE); Cocaine,Urine NEGATIVE (NEGATIVE); Methadone,Urine NEGATIVE (NEGATIVE); Opiate,Urine NEGATIVE (NEGATIVE); PCP,Urine NEGATIVE (NEGATIVE); THC,Urine NEGATIVE (NEGATIVE)
[2020-01-05] MEDS: CLINDAMYCIN-D5W 600 MG/50 ML*** 600 MG/50 ML BAG IV SCH (19:46)
[2020-01-05] MEDS: Lactated Ringers 1,000 ML IV SCH (19:47)
[2020-01-05] MEDS ORDERED: TYLENOL EXTRA STRENGTH 500 MG PO PRN (23:39)
[2020-01-06 00:32] VITALS: O2SAT 97
[2020-01-06] MEDS: CLINDAMYCIN-D5W 600 MG/50 ML*** 600 MG/50 ML BAG IV SCH ×2 (00:32→06:09)
[2020-01-06] MEDS: Lactated Ringers 1,000 ML IV SCH (07:53)
[2020-01-06 08:10] VITALS: BP 117/55; PULSE 79
== END 2020-01-06 09:08 | disposition home or self-care (01) ==
LOC: OB 15:55
PROVIDERS: ADMIT Family Medicine; ATTEND Family Medicine
DX: Z34.83 Encounter for supervision of other normal pregnancy, third trimester (principal)
CPT/HCPCS: 36415; 59025; 76805; 76818; 80053; 80307; 81001; 85025; G0378; A9270-GY

== ENCOUNTER 2020-01-14 08:25 | Inpatient (IN) | payer OTHER ==
[2020-01-14] MEDS ORDERED: Cervidil 10 MG VAG SCH (20:00)
[2020-01-14] MEDS ORDERED: PITOCIN 30 UNITS/ LR 500 ML 30 UNITS/500 ML IV.SOLN. IV SCH (20:00)
[2020-01-14] MEDS ORDERED: XYLOCAINE 1% HCL 20 ML MDV IJ PRN (20:00)
[2020-01-14] MEDS ORDERED: BRETHINE 1 MG/ML SQ PRN ×2 (20:00)
[2020-01-14 21:55] LABS: Absolute Neutrophil Ct (ANC) 8.46 (1.4-6.9); BASOPHIL % 0.2 % (0.0-0.4); Basophil (Absolute #) 0.02 (0-0.4); Eosinophil % 0.6 % (0.00-5.0); Eosinophil (Absolute #) 0.07 (0-0.5); Hematocrit 36.3 % (35-47); Hemoglobin 12.2 gm/dl (12.0-16.0); Lymphocyte (Absolute #) 2.11 (1.0-4.6); Lymphocytes % 17.5 % (24.0-44.0); Mean Cell Volume 81.8 fl (78-100); Mean Corpuscular Hemoglobin 27.5 pg (26-32); Mean Corpuscular Hgb Concent. 33.6 g/dl (32-36); Mean Platelet Volume 10.7 fl (7.5-11.0); Monocyte (Absolute #) 1.42 (0.0-1.3); Monocytes % 11.8 % (0.0-12.0); Neutrophil % 69.9 % (36.0-66.0); Platelet Count 313 K/mm3 (150-450); Red Blood Count 4.44 M/mm3 (4.1-5.4); Red Cell Distribution Width 14.3 % (11.5-14.0); White Blood Count 12.1 K/mm3 (4.0-10.5)
[2020-01-15 07:34] LABS: Amphetamine,Urine NEGATIVE (NEGATIVE); Barbiturate,Urine NEGATIVE (NEGATIVE); Benzodiazepine,Urine NEGATIVE (NEGATIVE); Cocaine,Urine NEGATIVE (NEGATIVE); Methadone,Urine NEGATIVE (NEGATIVE); Opiate,Urine NEGATIVE (NEGATIVE); PCP,Urine NEGATIVE (NEGATIVE); THC,Urine NEGATIVE (NEGATIVE)
[2020-01-15] MEDS ORDERED: Lactated Ringers 1,000 ML IV SCH (10:00)
[2020-01-15] MEDS ORDERED: NON-FORMULARY ITEM (Prenatal Vits W-Ca,Fe,Fa(<1mg) [Prenatal] 1 EACH) PO SCH (10:00)
[2020-01-15] MEDS: Lactated Ringers 1,000 ML IV SCH ×3 (10:34→22:16)
[2020-01-15] MEDS ORDERED: OB EPIDURAL NAROPIN/SUFENTANIL IN NACL EPIDURAL PRN (14:18)
[2020-01-15] MEDS ORDERED: Ephedrine Sulfate 50 MG/ML IV PRN (14:18)
[2020-01-15] MEDS ORDERED: Marcaine Spinal Ampul IJ ONE (15:14)
[2020-01-15] MEDS ORDERED: SUBLIMAZE 100 MCG/2 ML ONE (15:14)
[2020-01-15] MEDS: THERAGRAN MULTIVITAMIN PO SCH (20:00)
[2020-01-15] MEDS ORDERED: PITOCIN 30 UNITS/ LR 500 ML 500 ML IV SCH (22:00)
[2020-01-15] MEDS ORDERED: TUCKS TP PRN (23:43)
[2020-01-15] MEDS ORDERED: LANSINOH 40 GM TOP PRN (23:43)
[2020-01-15] MEDS ORDERED: Mylicon 80MG PO PRN (23:43)
[2020-01-15] MEDS ORDERED: CORTISONE 1% CREAM TP PRN (23:43)
[2020-01-15] MEDS ORDERED: Dermoplast Spray TP PRN (23:43)
[2020-01-15] MEDS ORDERED: NORCO 5/325 MG PO PRN (23:43)
[2020-01-15] MEDS ORDERED: Ambien 10 MG PO PRN (23:43)
[2020-01-16] MEDS: MOTRIN 400 MG PO PRN ×3 (04:22→22:47)
[2020-01-16 06:18] LABS: Absolute Neutrophil Ct (ANC) 12.13 (1.4-6.9); BASOPHIL % 0.2 % (0.0-0.4); Basophil (Absolute #) 0.03 (0-0.4); Eosinophil % 0.5 % (0.00-5.0); Eosinophil (Absolute #) 0.08 (0-0.5); Hematocrit 33.1 % (35-47); Hemoglobin 10.8 gm/dl (12.0-16.0); Lymphocyte (Absolute #) 2.22 (1.0-4.6); Lymphocytes % 13.6 % (24.0-44.0); Mean Corpuscular Hemoglobin 27.1 pg (26-32); Mean Corpuscular Hgb Concent. 32.6 g/dl (32-36); Mean Platelet Volume 10.8 fl (7.5-11.0); Monocyte (Absolute #) 1.85 (0.0-1.3); Monocytes % 11.3 % (0.0-12.0); Neutrophil % 74.4 % (36.0-66.0); Platelet Count 285 K/mm3 (150-450); Red Blood Count 3.99 M/mm3 (4.1-5.4); Red Cell Distribution Width 14.4 % (11.5-14.0); White Blood Count 16.3 K/mm3 (4.0-10.5)
[2020-01-16] MEDS ORDERED: Adacel Vial IM ONE (08:00)
[2020-01-16] MEDS: THERAGRAN MULTIVITAMIN PO SCH (09:28)
[2020-01-16] MEDS: Colace 100 MG PO SCH ×2 (09:28→22:47)
[2020-01-16] MEDS: FERREX 150 PO SCH (09:29)
[2020-01-16] MEDS: TYLENOL EXTRA STRENGTH 500 MG PO PRN ×2 (09:30→15:29)
--- NOTE | 2020-01-16 10:52 | PCM.NOTE ---
Date and Time: 01/16/20 1049 Subjective Assessment: PPD 1 PT RESTING IN BED AND DOING WELL WITHOUT COMPLAINTS. PT HAD DESIRED TUBAL LIGATION AND DW PT PERFORMING HER PROCEDURE WHEN SHE FU DURING HER POSPARTUM CARE. VSS AFEBRILE ABD; SOFT UTERUS; FIRM LOCHIA; MILD HGB; 10 A/P SP PPD 1 ANTICIPATE DISCHARGE HOME TOMORROW STABLE OBJECTIVE DATA Vital Signs: Vital Signs - 24 hr Temp Pulse Resp BP BP Pulse Ox 01/16/20 01:58 98.3 F 98 H 22 137/55 01/16/20 01:00 93 H 20 105/56 01/16/20 00:30 98 F 93 H 18 113/57 01/16/20 00:00 98.3 F 80 20 118/56 01/15/20 23:30 97.8 F 80 20 120/60 01/15/20 23:15 98.2 F 77 20 116/71 01/15/20 23:00 98 F 108 H 20 123/70 01/15/20 22:45 98.6 F 100 H 18 120/69 01/15/20 22:30 90 20 01/15/20 22:15 86 18 123/57 123/57 100 01/15/20 22:00 98.6 F 92 H 20 118/61 118/61 100 01/15/20 21:45 79 18 118/61 118/61 100 01/15/20 21:30 98 F 93 H 18 118/61 01/15/20 21:15 98.3 F 79 18 119/66 01/15/20 21:00 98.2 F 88 18 119/64 119/64 01/15/20 20:45 79 18 106/80 105/56 01/15/20 20:30 98 F 79 20 101/50 101/50 01/15/20 20:15 98 F 93 H 18 01/15/20 20:00 98 F 73 18 106/80 106/80 01/15/20 19:36 97.9 F 77 18 109/58 01/15/20 19:30 97.9 F 77 18 01/15/20 19:00 72 18 112/56 01/15/20 18:45 18 01/15/20 18:30 68 18 112/56 01/15/20 18:15 68 18 112/56 05/15/20 18:00 64 18 106/59 01/15/20 17:45 70 18 99/54 01/15/20 17:30 68 18 101/57 01/15/20 17:15 80 18 109/59 01/15/20 17:00 67 18 104/55 01/15/20 16:45 68 18 108/58 01/15/20 16:30 71 18 97/51 01/15/20 16:15 81 18 109/62 01/15/20 16:00 78 20 135/65 01/15/20 15:45 80 20 114/58 01/15/20 15:30 87 20 150/69 01/15/20 15:15 20 01/15/20 15:00 76 20 135/72 01/15/20 14:45 78 20 138/68 01/15/20 14:30 78 20 124/68 01/15/20 14:15 20 01/15/20 13:57 85 20 120/74 120/74 01/15/20 13:45 76 20 139/68 01/15/20 13:29 81 20 136/70 01/15/20 13:15 86 20 128/72 01/15/20 13:00 71 20 119/60 01/15/20 12:45 72 20 118/64 01/15/20 12:29 68 20 124/64 01/15/20 12:15 73 20 119/64 01/15/20 12:00 74 20 128/69 01/15/20 11:45 72 20 131/60 01/15/20 11:30 73 18 119/74 01/15/20 11:15 80 18 111/65 01/15/20 11:00 76 18 115/69 Oxygen-Last 24 hours Oxygen Flowrate (L/min)-RT 10 Oxygen Flowrate (L/min)-RT 10 Oxygen Flowrate (L/min)-RT 10 Oxygen Flowrate (L/min)-RT 10 Oxygen Flowrate (L/min)-RT 10 Oxygen Flowrate (L/min)-RT 10 Pain Assessment - Last Documented Pain Intensity [Lower Anterior 4 ] Pain Intensity 6 Pain Scale Used 0-10 Pain Scale Intake and Output: Intake & Output 01/13/20 01/14/20 01/15/20 01/16/20 11:59 11:59 11:59 11:59 Intake Total 093 4828 Output Total 350 1000 Balance 152 3875 Weight 92.533 kg Lab Results: Lab Results-Last 24 Hours 01/16/20 Range/Units 05:25 WBC 16.3 H (4.0-10.5) K/mm3 RBC 3.99 L (4.1-5.4) M/mm3 Hgb 10.8 L (12.0-16.0) gm/dl Hct 33.1 L (35-47) % MCV 83.0 (78-100) fl MCH 27.1 (26-32) pg MCHC 32.6 (32-36) g/dl RDW 14.4 H (11.5-14.0) % Plt Count 285 (150-450) K/mm3 MPV 10.8 (7.5-11.0) fl Gran % 74.4 H (36.0-66.0) % Eos # (Auto) 0.08 (0-0.5) Absolute Lymphs (auto) 2.22 (1.0-4.6) Absolute Monos (auto) 1.85 H (0.0-1.3) Lymphocytes % 13.6 L (24.0-44.0) % Monocytes % 11.3 (0.0-12.0) % Eosinophils % 0.5 (0.00-5.0) % Basophils % 0.2 (0.0-0.4) % Absolute Granulocytes 12.13 H (1.4-6.9) Basophils # 0.03 (0-0.4)
[2020-01-16 16:00] LABS: Slide Review 1 YES
[2020-01-17] MEDS: TYLENOL EXTRA STRENGTH 500 MG PO PRN (01:12)
[2020-01-17] MEDS: MOTRIN 400 MG PO PRN (08:55)
[2020-01-17] MEDS: FERREX 150 PO SCH (10:06)
[2020-01-17] MEDS: Colace 100 MG PO SCH (10:06)
[2020-01-17] MEDS: THERAGRAN MULTIVITAMIN PO SCH (10:06)
--- NOTE | 2020-01-17 10:43 | PCM.NOTE ---
Date and Time: 01/17/20 1041 Subjective Assessment: PPD 2 PT RESTING IN BED AND DONG WELL WITHOUT COMPLAINTS VSS AFEBRILE ABD; SOFT UTERUS; FIRM LOCHIA; MILD EXT; NO CLUBBING CYANOSIS OR EDEMA A/P SP PPD 2 DC HOME TODAY SHOULD FU WITH PROVIDER IN 6 WKS WILL FU AFTERWARDS FOR TUBAL CONSULT AND STERILIZATION OBJECTIVE DATA Vital Signs: Vital Signs - 24 hr Temp Pulse Resp BP BP 01/17/20 01:16 75 20 122/64 01/16/20 20:00 98.0 F 81 18 118/68 01/16/20 14:00 98.2 F 85 18 113/57 Pain Assessment - Last Documented Pain Intensity [Lower Anterior 4 ] Pain Intensity 0 Pain Scale Used 0-10 Pain Scale Intake and Output: Intake & Output 01/14/20 01/15/20 01/16/20 01/17/20 11:59 11:59 11:59 11:59 Intake Total 502 4875 2200 Output Total 350 1000 Balance 152 3875 2200 Weight 92.533 kg Lab Results: Lab Results-Last 24 Hours 01/16/20 Range/Units 05:25 Slides for Path Review YES
--- NOTE | 2020-01-17 10:43 | PCM.DCORD ---
- Discharge Disposition: Home, Self-Care Condition: Stable Prescriptions: No Action Vits W-Ca,Fe,FA(<1Mg) [] 1 each PO DAILY Follow up with: HENRY FERGUSON [Primary Care Provider] - 1 Week
[2020-01-17 10:45] VITALS: BP 109/65
--- NOTE | 2020-01-17 10:47 | PCM.DS ---
Discharge Summary Date of Admission: 01/15/20 08:25 Date of Discharge: JANUARY 17, 2020 Admitting Physician: HENRY FERGUSON Consults: Consults on Case 01/15/20 23:43 Notify Physician ROUTINE Primary Care Provider: HENRY FERGUSON Allergies Allergies Latex, Natural Rubber Allergy (Verified 10/16/19 13:56) Hospital Summary - Hospital Course Hospital Course: PT WAS ADMITTED ON JANUARY 13 FOR INDUCTION WITH CERVIDIL AND SUBSEQUENTLY PLACED ON PITOCIN ON JANUARY 14 DELIVERED IN THE EVENING OF JANUARY 14 WITHOUT COMPLICATION AT 2227. PT HAD BABY GIRL. DURING PERIOD PT DID VERY WELL AND IT WAS DISCUSSED WITH HER SHE WOULD FU IN 6 WKS FOR CARE THEN CONSULT FOR TUBAL STERILIZATION. IT WAS DW PT THE INCREASED RISK OF ABNORMAL UTERINE BLEEDING ASSOCIATED WITH TUBAL LIGATION VS PERFORMING LAPAROSCOPIC TUBAL STERILIZATION VIA MECHANICAL METHOD OF STERILIZATION. AT THIS TIME PT WILL FU SCHEDULED. PT STABLE FOR DISCHARGE AT THIS TIME. - Vitals & Intake/Output Vital Signs: Vital Signs Temperature 98.0 F 01/16/20 20:00 Pulse Rate 75 01/17/20 01:16 Respiratory Rate 20 01/17/20 01:16 Blood Pressure 122/64 01/17/20 01:16 O2 Sat by Pulse Oximetry 100 01/15/20 22:15 Intake & Output: Intake & Output 01/14/20 01/15/20 01/16/20 01/17/20 11:59 11:59 11:59 11:59 Intake Total 502 4875 2200 Output Total 350 1000 Balance 152 3875 2200 Weight 92.533 kg - Lab Result Diagrams: 01/16/20 05:25 Lab Results-Last 24 Hrs: Lab Results-Last 24 Hours 01/16/20 Range/Units 05:25 Slides for Path Review YES Micro Results-Entire Visit: Microbiology 01/15/20 Unknown Urine Culture - Final Catherized NO GROWTH - Discharge Disposition: Home, Self-Care Condition: Stable Prescriptions: No Action Vits W-Ca,Fe,FA(<1Mg) [] 1 each PO DAILY Follow up with: HENRY FERGUSON [Primary Care Provider] - 1 Week
[2020-01-17 19:26] VITALS: PULSE 85; O2SAT 97
== END 2020-01-17 15:20 | disposition home or self-care (01) | DRG 807 ==
LOC: OB 08:25 → OBSVTOIN 01-15 08:25
PROVIDERS: ADMIT Family Medicine; ATTEND Family Medicine
PROC: 10E0XZZ Delivery of Products of Conception, External Approach (ICD-10-PCS; principal; 2020-01-15)
DX: O80 Encounter for full-term uncomplicated delivery (principal); Z37.0 Single live birth; Z3A.39 39 weeks gestation of pregnancy
CPT/HCPCS: 36415; 80307; 85025; 87086; 90471; 90715; G0378; J2590; J2795; J3010; A9270-GY

== ENCOUNTER 2020-04-01 18:54 | Observation (INO) | payer OTHER ==
--- NOTE | 2020-04-01 18:57 | ERPHSYRPT ---
- History of Present Illness Time Seen by Provider: 04/01/20 18:57 Historian: patient Exam Limitations: no limitations Physician History: This is a 24-year-old white female who is 2-1/2 months out from delivering a child. She has had persistent intermittent vaginal bleeding. She is also had some intermittent diarrhea and abdominal pain. In the last 2 weeks the symptoms have worsened. The abdominal pain is generalized. She is also had vomiting episodes intermittently in the last 2 weeks. Activities at Onset: none Quality: tightness Abdominal Pain Onset Location: generalized abdomen (Generalized) Pain Radiation: no radiation Severity of Pain-Max: moderate Severity of Pain-Current: moderate Associated Symptoms: diarrhea, nausea, vomiting, No chest pain, No fever/chills, No shortness of breath Previous symptoms: same symptoms as today, no recent treatment Allergies/Adverse Reactions: Latex, Natural Rubber Allergy (Verified 10/16/19 13:56) Home Medications: Vits W-Ca,Fe,FA(<1Mg) [] 1 each PO DAILY 10/16/19 [History] Hx Tetanus, Diphtheria Vaccination/Date Given: Yes Hx Influenza Vaccination/Date Given: Yes Hx Pneumococcal Vaccination/Date Given: No Travel Risk - International Travel Have you traveled outside of the country in past 3 weeks: No - Coronavirus Screening Are you exhibiting any of the following symptoms?: No Close contact with a COVID-19 positive Pt in past 14-21 Days: No - Review of Systems Constitutional: No Symptoms Eyes: No Symptoms Ears, Nose, & Throat: No Symptoms Respiratory: No Symptoms Cardiac: No Symptoms Abdominal/Gastrointestinal: Abdominal Pain, Vomiting, Diarrhea Genitourinary Symptoms: Vaginal Bleeding Musculoskeletal: No Symptoms Skin: No Symptoms Neurological: No Symptoms Psychological: No Symptoms Endocrine: No Symptoms Hematologic/Lymphatic: No Symptoms Immunological/Allergic: No Symptoms All Other Systems: Reviewed and Negative - Past Medical History Pertinent Past Medical History: Yes Neurological History: Epilepsy, Seizures ENT History: No Pertinent History Cardiac History: Other Respiratory History: Asthma, Sleep Apnea Endocrine Medical History: No Pertinent History Musculoskeletal History: No Pertinent History GI Medical History: No Pertinent History, Hemorrhoids History: No Pertinent History Psycho-Social History: No Pertinent History Female Reproductive Disorders: No Pertinent History Other Medical History: palpitations, pre-eclampsia - Past Surgical History Past Surgical History: No Neuro Surgical History: No Pertinent History Cardiac: No Pertinent History Respiratory: No Pertinent History Gastrointestinal: No Pertinent History Genitourinary: No Pertinent History Musculoskeletal: No Pertinent History Female Surgical History: No Pertinent History Other Surgical History: WISDOM TEETH - Social History Smoking Status: Current every day smoker How long have you smoked: 7 Exposure to second hand smoke: Yes Drug Use: none Patient Lives Alone: No - Nursing Vital Signs Nursing Vital Signs: Initial Vital Signs Temperature 98.1 F 04/01/20 18:59 Pulse Rate 81 04/01/20 18:59 Respiratory Rate 18 04/01/20 18:59 Blood Pressure 130/78 04/01/20 18:59 O2 Sat by Pulse Oximetry 98 04/01/20 18:59 Pain Scale Pain Intensity 5 - Physical Exam General Appearance: mild distress, alert, anxiety Eye Exam: PERRL/EOMI, eyes nml inspection Ears, Nose, Throat Exam: normal ENT inspection, moist mucous membranes Neck Exam: normal inspection, non-tender, supple, full range of motion Respiratory Exam: normal breath sounds, lungs clear, airway intact, No chest ten derness, No respiratory distress Cardiovascular Exam: regular rate/rhythm, normal heart sounds, normal peripheral pulses Gastrointestinal/Abdomen Exam: soft, normal bowel sounds, tenderness (Generalized mild), guarding, No rebound Pelvic Exam: not done Rectal Exam: not done Back Exam: normal inspection, normal range of motion, No CVA tenderness, No vertebral tenderness Extremity Exam: normal inspection, normal range of motion, pelvis stable Neurologic Exam: alert, oriented x 3, cooperative, status controller II-XII nml as tested, nor mal mood/affect, nml cerebellar function, nml station & gait, sensation nml Skin Exam: normal color, warm, dry Lymphatic Exam: No adenopathy SpO2 Interpretation: normal O2 Delivery: Room Air Ordered Tests: Active Orders 24 hr Category Date Time Status ABDOMEN AND PELVIS W/0 CONTRAS [CT] Stat Exams 04/01/20 19:55 Taken AMYLASE Stat Lab 04/01/20 19:45 Completed CBC W DIFF Stat Lab 04/01/20 19:45 Completed CMP Stat Lab 04/01/20 19:45 Completed HCG,QUALITATIVE URINE Stat Lab 04/01/20 20:27 Completed LIPASE Stat Lab 04/01/20 19:45 Completed Lactic Acid Stat Lab 04/01/20 20:30 Completed Lactic Acid Stat Lab 04/01/20 22:39 Received Medication Summary Discontinued Medications Generic Name Dose Route Start Last Admin Trade Name Yifan PRN Reason Stop Dose Admin Hydromorphone HCl 1 mg 04/01/20 22:55 04/01/20 23:19 Hydromorphone 1 Mg/Ml Ampule IV 04/01/20 22:56 1 mg STAT ONE Administration Hydromorphone HCl Confirm 04/01/20 23:07 Hydromorphone 1 Mg/Ml Ampule Administered 04/01/20 23:08 Dose 1 mg .ROUTE .STK-MED ONE Piperacillin Sod/Tazobactam 100 mls @ 200 mls/hr 04/01/20 22:59 04/01/20 23:20 Sod 3.375 gm/ Sodium Chloride IV 04/01/20 23:28 200 mls/hr STAT ONE Administration Sodium Chloride Confirm 04/01/20 23:08 Sodium Chloride 0.9% 1000 Ml Administered 04/01/20 23:09 Dose 1,000 mls @ ud .ROUTE .STK-MED ONE Sodium Chloride Confirm 04/01/20 23:09 Sodium Chloride 100ml Mini-Bag Plus Administered 04/01/20 23:10 Dose 100 mls @ ud IV .STK-MED ONE Ondansetron HCl 4 mg 04/01/20 22:55 04/01/20 23:19 Zofran 4 Mg/2 Ml Vial IV 04/01/20 22:56 4 mg STAT ONE Administration Ondansetron HCl Confirm 04/01/20 23:17 Zofran 4 Mg/2 Ml Vial Administered 04/01/20 23:18 Dose 4 mg .ROUTE .STK-MED ONE Piperacillin Sod/Tazobactam Sod Confirm 04/01/20 23:08 Zosyn 3.375 Gm Vial Administered 04/01/20 23:09 Dose 3.375 gm IV .STK-MED ONE Lab/Rad Data: Laboratory Result Diagrams 04/01/20 19:45 04/01/20 19:45 Laboratory Results 04/01/20 04/01/20 04/01/20 Range/Units Unknown 20:30 20:27 WBC (4.0-10.5) K/mm3 RBC (4.1-5.4) M/mm3 Hgb (12.0-16.0) gm/dl Hct (35-47) % MCV (78-100) fl MCH (26-32) pg MCHC (32-36) g/dl RDW (11.5-14.0) % Plt Count (150-450) K/mm3 MPV (7.5-11.0) fl Gran % (36.0-66.0) % Eos # (Auto) (0-0.5) Absolute Lymphs (auto) (1.0-4.6) Absolute Monos (auto) (0.0-1.3) Lymphocytes % (24.0-44.0) % Monocytes % (0.0-12.0) % Eosinophils % (0.00-5.0) % Basophils % (0.0-0.4) % Absolute Granulocytes (1.4-6.9) Basophils # (0-0.4) Sodium (137-145) mmol/L Potassium (3.5-5.1) mmol/L Chloride (98-107) mmol/L Carbon Dioxide (22-30) mmol/L Anion Gap (5-15) MEQ/L BUN (7-17) mg/dL Creatinine (0.52-1.04) mg/dL Estimated GFR ML/MIN Glucose (74-106) mg/dL Lactic Acid 2.4 H (0.4-2.0) Calcium (8.4-10.2) mg/dL Total Bilirubin (0.2-1.3) mg/dL AST (14-36) U/L ALT (0-35) U/L Alkaline Phosphatase (38-126) U/L Serum Total Protein (6.3-8.2) g/dL Albumin (3.5-5.0) g/dL Amylase (30-110) U/L Lipase (23-300) U/L Urine Color YELLOW (YELLOW) Urine Appearance SLIGHTLY CLOUDY (CLEAR) Urine pH 5.0 (5-6) Ur Specific [place] 1.023 (1.005-1.025) Urine Protein NEGATIVE (Negative) Urine Ketones NEGATIVE (NEGATIVE) Urine Blood MODERATE (0-5) Avelino/ul Urine Nitrite NEGATIVE (NEGATIVE) Urine Bilirubin NEGATIVE (NEGATIVE) Urine Urobilinogen NEGATIVE (0-1) mg/dL Ur Leukocyte Esterase MODERATE (NEGATIVE) Urine WBC (Auto) 26-50 (0-5) /HPF Urine RBC (Auto) 3-5 (0-2) /HPF U Epithel Cells (Auto) FEW (FEW) /HPF Urine Bacteria (Auto) FEW (NEGATIVE) /HPF Urine Mucus (Auto) SLIGHT (NEGATIVE) /HPF Urine Culture Reflexed YES (NO) Urine Glucose NEGATIVE (NEGATIVE) mg/dL Urine HCG, Qual NEGATIVE (Negative) 04/01/20 04/01/20 Range/Units 19:45 19:45 WBC 11.9 H (4.0-10.5) K/mm3 RBC 5.21 (4.1-5.4) M/mm3 Hgb 13.4 (12.0-16.0) gm/dl Hct 42.3 (35-47) % MCV 81.2 (78-100) fl MCH 25.7 L (26-32) pg MCHC 31.7 L (32-36) g/dl RDW 14.9 H (11.5-14.0) % Plt Count 321 (150-450) K/mm3 MPV 10.4 (7.5-11.0) fl Gran % 73.1 H (36.0-66.0) % Eos # (Auto) 0.10 (0-0.5) Absolute Lymphs (auto) 2.13 (1.0-4.6) Absolute Monos (auto) 0.94 (0.0-1.3) Lymphocytes % 18.0 L (24.0-44.0) % Monocytes % 7.9 (0.0-12.0) % Eosinophils % 0.8 (0.00-5.0) % Basophils % 0.2 (0.0-0.4) % Absolute Granulocytes 8.66 H (1.4-6.9) Basophils # 0.02 (0-0.4) Sodium 138 (137-145) mmol/L Potassium 3.6 (3.5-5.1) mmol/L Chloride 104 (98-107) mmol/L Carbon Dioxide 23 (22-30) mmol/L Anion Gap 14.7 (5-15) MEQ/L BUN 9 (7-17) mg/dL Creatinine 0.89 (0.52-1.04) mg/dL Estimated GFR > 60.0 ML/MIN Glucose 89 (74-106) mg/dL Lactic Acid (0.4-2.0) Calcium 9.5 (8.4-10.2) mg/dL Total Bilirubin 0.30 (0.2-1.3) mg/dL AST 24 (14-36) U/L ALT 23 (0-35) U/L Alkaline Phosphatase 59 (38-126) U/L Serum Total Protein 7.9 (6.3-8.2) g/dL Albumin 4.7 (3.5-5.0) g/dL Amylase 142 H (30-110) U/L Lipase 58 (23-300) U/L Urine Color (YELLOW) Urine Appearance (CLEAR) Urine pH (5-6) Ur Specific [place] (1.005-1.025) Urine Protein (Negative) Urine Ketones (NEGATIVE) Urine Blood (0-5) Avelino/ul Urine Nitrite (NEGATIVE) Urine Bilirubin (NEGATIVE) Urine Urobilinogen (0-1) mg/dL Ur Leukocyte Esterase (NEGATIVE) Urine WBC (Auto) (0-5) /HPF Urine RBC (Auto) (0-2) /HPF U Epithel Cells (Auto) (FEW) /HPF Urine Bacteria (Auto) (NEGATIVE) /HPF Urine Mucus (Auto) (NEGATIVE) /HPF Urine Culture Reflexed (NO) Urine Glucose (NEGATIVE) mg/dL Urine HCG, Qual (Negative) - Progress Progress: improved, pain not gone completely, re-examined Progress Note: 04/01/20 22:18 CAT scan of the abdomen and pelvis shows prominent 9 mm mild or early acute appendicitis. Patient last ate this morning. 04/01/20 22:48 Medical decision making: This patient's history and even her physical exam is not quite consistent with acute appendicitis. However she does have elevated white count and abdominal pain and vomiting. I spoke with Dr. Lul Sears who is the general surgeon director information. I reviewed the patient history and physical findings and laboratory work-up as well as the radiographic study results. I then spoke with Dr. López, the patient's primary care physician and reviewed the patient history, condition, physical findings and laboratory work-up as well as radiographic study results as well. We all agree that the patient is not classically acute appendicitis but will bring the patient into the hospital, rehydrate the patient, keep n.p.o., give the patient intravenous antibiotics and reassess labs and reexamine patient in the morning. 04/02/20 01:01 At first the patient was not wanting to be admitted in the hospital. However she is now agreeable. I have already spoken to Dr. Sears and he will see the patient this morning. 04/02/20 01:01 Discussed with : Christiano Gillespie Counseled pt/family regarding: lab results, diagnosis, need for follow-up, rad results - Departure Departure Disposition: In-patient Admission Clinical Impression: Abdominal pain, UTI (urinary tract infection) Condition: Stable Critical Care Time: No Referrals: HENRY FERGUSON [Primary Care Provider] -
[2020-04-01 20:00] LABS: Absolute Neutrophil Ct (ANC) 8.66 (1.4-6.9); BASOPHIL % 0.2 % (0.0-0.4); Basophil (Absolute #) 0.02 (0-0.4); Eosinophil % 0.8 % (0.00-5.0); Hematocrit 42.3 % (35-47); Hemoglobin 13.4 gm/dl (12.0-16.0); Lymphocyte (Absolute #) 2.13 (1.0-4.6); Mean Cell Volume 81.2 fl (78-100); Mean Corpuscular Hemoglobin 25.7 pg (26-32); Mean Corpuscular Hgb Concent. 31.7 g/dl (32-36); Mean Platelet Volume 10.4 fl (7.5-11.0); Monocyte (Absolute #) 0.94 (0.0-1.3); Monocytes % 7.9 % (0.0-12.0); Neutrophil % 73.1 % (36.0-66.0); Platelet Count 321 K/mm3 (150-450); Red Blood Count 5.21 M/mm3 (4.1-5.4); Red Cell Distribution Width 14.9 % (11.5-14.0); White Blood Count 11.9 K/mm3 (4.0-10.5)
[2020-04-01 20:04] LABS: ALBUMIN 4.7 g/dL (3.5-5.0); ALKALINE PHOSPHATASE 59 U/L (38-126); AMYLASE 142 U/L (30-110); ANION GAP 14.7 MEQ/L (5-15); BLOOD UREA NITROGEN 9 mg/dL (7-17); CHLORIDE 104 mmol/L (98-107); Calcium 9.5 mg/dL (8.4-10.2); Carbon Dioxide 23 mmol/L (22-30); Creatinine 1 0.89 mg/dL (0.52-1.04); Glucose 89 mg/dL (74-106); LIPASE 58 U/L (23-300); Potassium 3.6 mmol/L (3.5-5.1); SGOT/AST 24 U/L (14-36); SGPT/ALT 23 U/L (0-35); SODIUM 138 mmol/L (137-145); Total Protein 7.9 g/dL (6.3-8.2)
[2020-04-01 20:55] LABS: Appearance SLIGHTLY CLOUDY (CLEAR); Bacteria FEW /HPF (NEGATIVE); Bilirubin NEGATIVE (NEGATIVE); Blood MODERATE Ery/ul (0-5); Epithelial Cells FEW /HPF (FEW); Glucose NEGATIVE (NEGATIVE); Ketones NEGATIVE (NEGATIVE); Leukocyte Esterase MODERATE (NEGATIVE); Mucus SLIGHT /HPF (NEGATIVE); Nitrite NEGATIVE (NEGATIVE); Protein,Urine Dip NEGATIVE (Negative); Specific Gravity 1.023 (1.005-1.025); Urobilinogen NEGATIVE mg/dL (0-1); WBC 26-50 /HPF (0-5)
[2020-04-01] MEDS ORDERED: Zofran 4 MG/2 ML VIAL IV ONE (22:55)
[2020-04-01] MEDS ORDERED: Hydromorphone 1 mg/ml Ampule IV ONE (22:55)
[2020-04-01] MEDS ORDERED: Zosyn 3.375 GM Vial 3.375 GM in Sodium Chloride 100ML MINI-BAG PLUS 100 ML IV ONE (22:59)
[2020-04-01] MEDS ORDERED: Hydromorphone 1 mg/ml Ampule ONE (23:07)
[2020-04-01] MEDS ORDERED: Sodium Chloride 0.9% 1000 ML 1,000 ML ONE (23:08)
[2020-04-01] MEDS ORDERED: Zosyn 3.375 GM Vial IV ONE (23:08)
[2020-04-01] MEDS ORDERED: Sodium Chloride 100ML MINI-BAG PLUS 100 ML IV ONE (23:09)
[2020-04-01] MEDS ORDERED: Zofran 4 MG/2 ML VIAL ONE (23:17)
[2020-04-02] MEDS ORDERED: Zofran 4 MG/2 ML VIAL IV PRN (01:46)
[2020-04-02] MEDS: Zosyn 2.25 GM 2.25 GM in Sodium Chloride 100ML MINI-BAG PLUS 100 ML IV SCH ×4 (01:48→17:53)
[2020-04-02] MEDS: Sodium Chloride 0.9% 1000 ML 1,000 ML IV SCH ×2 (02:03→12:22)
[2020-04-02] MEDS: DILAUDID 2 MG INJECTION IV PRN ×2 (03:21→09:38)
[2020-04-02 06:05] LABS: ALBUMIN 3.5 g/dL (3.5-5.0); ALKALINE PHOSPHATASE 46 U/L (38-126); ANION GAP 9.5 MEQ/L (5-15); BLOOD UREA NITROGEN 7 mg/dL (7-17); CHLORIDE 107 mmol/L (98-107); Calcium 8.1 mg/dL (8.4-10.2); Carbon Dioxide 25 mmol/L (22-30); Creatinine 1 0.78 mg/dL (0.52-1.04); Glucose 90 mg/dL (74-106); SGOT/AST 19 U/L (14-36); SGPT/ALT 17 U/L (0-35); SODIUM 138 mmol/L (137-145); Total Protein 6.2 g/dL (6.3-8.2)
[2020-04-02] MEDS ORDERED: Sodium Chloride 100ML MINI-BAG PLUS 0 ML IV ONE (06:16)
[2020-04-02] MEDS ORDERED: Zosyn 2.25 GM IV ONE (06:16)
[2020-04-02] MEDS ORDERED: Sodium Chloride 0.9% 100 ML IVPB 100 ML IV ONE (06:25)
[2020-04-02 06:58] LABS: Absolute Neutrophil Ct (ANC) 5.32 (1.4-6.9); BASOPHIL % 0.2 % (0.0-0.4); Basophil (Absolute #) 0.02 (0-0.4); Eosinophil % 1.3 % (0.00-5.0); Eosinophil (Absolute #) 0.11 (0-0.5); Hematocrit 39.3 % (35-47); Hemoglobin 12.2 gm/dl (12.0-16.0); Lymphocyte (Absolute #) 2.45 (1.0-4.6); Lymphocytes % 27.9 % (24.0-44.0); Mean Cell Volume 82.2 fl (78-100); Mean Corpuscular Hemoglobin 25.5 pg (26-32); Mean Platelet Volume 10.5 fl (7.5-11.0); Monocyte (Absolute #) 0.89 (0.0-1.3); Monocytes % 10.1 % (0.0-12.0); Neutrophil % 60.5 % (36.0-66.0); Platelet Count 268 K/mm3 (150-450); Red Blood Count 4.78 M/mm3 (4.1-5.4); Red Cell Distribution Width 14.9 % (11.5-14.0); White Blood Count 8.8 K/mm3 (4.0-10.5)
--- NOTE | 2020-04-02 08:07 | XRAY ---
Indication: Lower abdomen and back pain 2 weeks. Multiple contiguous axial images obtained through the abdomen and pelvis without contrast as ordered. Comparison: December 26, 2017. Lung bases remain clear. Heart is not enlarged. Noncontrasted stomach and bowel loops appear nonobstructed. Appendix is now prominent up to 9 mm in diameter, previously 5 mm, without periappendiceal stranding. Mild/early appendicitis is of primary concern. No free fluid/air. Remaining liver, gallbladder, pancreas, spleen, adrenal glands, kidneys, ureters, bladder, uterus, and aorta appear unremarkable for noncontrast exam. Osseous structures intact. No ventral or inguinal hernias. Impression: 1. Prominence appendix without periappendiceal stranding. Rule out mild/early appendicitis. 2. Remaining CT abdomen/pelvis without contrast exam is negative.
[2020-04-02] MEDS ORDERED: Phenergan 25 MG INJ IV ONE (10:45)
--- NOTE | 2020-04-02 12:45 | PCM.HP ---
History of Present Illness - Chief Complaint Chief Complaint: Abd pain/UTI History of Present Illness: is a 24 year old female pt of mine from [facility], recently delivered her 3rd baby, who came to ER complaining of abd pain, vomiting, and persistent vaginal bleeding since her delivery. CT abd/pelvis without contrast had showed prominent appendix, no stranding (had been 5mm, now 9mm). WBC were 11.9. Surgery was consulted; sx atypical for appendicitis, so she was admitted on IV fluids and antibiotics for observation. This morning, Dr. Sears ordered a CT abd/pelvis with po contrast; so far the pt has vomited up 2 bottles of contrast. She received phenergan and is now extremely somnolent; can be roused briefly to touch, but falls asleep again quickly. Nurse is attempting to get her to take small amounts of the po contrast. Pt does deny pain currently. Per RN pt was not having much pain this morning until she started vomiting due to the contrast. Also, pt had told RN that she has not tolerated more than an occasional energy drink po for the past 2 weeks. - Review of Systems Abdominal/Gastrointestinal: Abdominal Pain, Vomiting Genitourinary Symptoms: Vaginal Bleeding All Other Systems: Unable due to condition Medications & Allergies Home Medications: Home Medication List No Reportable Medications [No Reported Medications] 04/02/20 [History Confirmed 04/02/20] Allergies/Adverse Reactions: Allergies Allergy/AdvReac Type Severity Reaction Status Date / Time Latex, Natural Rubber Allergy Verified 10/16/19 13:56 - Past Medical History Past Medical History: Yes Neurological History: Epilepsy, Seizures ENT History: No Pertinent History Cardiac History: Other Respiratory History: Asthma, Sleep Apnea Endocrine Medical History: No Pertinent History Musculoskelatal History: No Pertinent History GI Medical History: No Pertinent History, Hemorrhoids History: No Pertinent History Pyscho-Social History: No Pertinent History Reproductive Disorders: No Pertinent History Comment: palpitations, pre-eclampsia - Female History Are you now?: No - Past Surgical History Past Surgical History: Yes Neuro Surgical History: No Pertinent History Cardiac History: No Pertinent History Respiratory Surgery: No Pertinent History GI Surgical History: No Pertinent History Genitourinary Surgical Hx: No Pertinent History Musculskeletal Surgical Hx: No Pertinent History Female Surgical History: No Pertinent History Other Surgical History: WISDOM TEETH - Social History Smoking Status: Current every day smoker How long have you smoked: 7 Exposure to second hand smoke: Yes Alcohol: Rarely Drug Use: none - Physical Exam Vital Signs: Vital Signs - 24 hr Temp Pulse Resp BP Pulse Ox 04/02/20 11:55 97.7 F 60 12 91/50 98 04/02/20 08:00 97.6 F 54 L 14 83/47 98 04/02/20 02:08 97.5 F 57 L 16 107/57 99 04/01/20 22:00 74 16 121/74 99 04/01/20 20:27 83 16 119/74 99 04/01/20 18:59 98.1 F 81 18 130/78 98 General Appearance: no apparent distress, other (somnolent - wakes briefly to touch, can answer questions although repetition is needed) Eye Exam: eyes nml inspection Ears, Nose, Throat Exam: moist mucous membranes Neck Exam: normal inspection Respiratory Exam: normal breath sounds, lungs clear, No crackles/rales, No rhonchi, No wheezing Cardiovascular Exam: regular rate/rhythm, normal heart sounds, No murmur Gastrointestinal/Abdomen Exam: soft, No normal bowel sounds (hypoactive but present), No tenderness, No distention, No mass, No guarding, No rebound Back Exam: normal inspection, No rash Extremity Exam: normal inspection, No pedal edema, No swelling Skin Exam: normal color, warm, dry, No rash Results - Labs Lab/Micro Results: Lab Results-Last 24 Hours 04/01/20 04/01/20 04/01/20 Range/Units 19:45 19:45 20:27 WBC 11.9 H (4.0-10.5) K/mm3 RBC 5.21 (4.1-5.4) M/mm3 Hgb 13.4 (12.0-16.0) gm/dl Hct 42.3 (35-47) % MCV 81.2 (78-100) fl MCH 25.7 L (26-32) pg MCHC 31.7 L (32-36) g/dl RDW 14.9 H (11.5-14.0) % Plt Count 321 (150-450) K/mm3 MPV 10.4 (7.5-11.0) fl Gran % 73.1 H (36.0-66.0) % Eos # (Auto) 0.10 (0-0.5) Absolute Lymphs (auto) 2.13 (1.0-4.6) Absolute Monos (auto) 0.94 (0.0-1.3) Lymphocytes % 18.0 L (24.0-44.0) % Monocytes % 7.9 (0.0-12.0) % Eosinophils % 0.8 (0.00-5.0) % Basophils % 0.2 (0.0-0.4) % Absolute Granulocytes 8.66 H (1.4-6.9) Basophils # 0.02 (0-0.4) Sodium 138 (137-145) mmol/L Potassium 3.6 (3.5-5.1) mmol/L Chloride 104 (98-107) mmol/L Carbon Dioxide 23 (22-30) mmol/L Anion Gap 14.7 (5-15) MEQ/L BUN 9 (7-17) mg/dL Creatinine 0.89 (0.52-1.04) mg/dL Estimated GFR > 60.0 ML/MIN Glucose 89 (74-106) mg/dL Lactic Acid (0.4-2.0) Calcium 9.5 (8.4-10.2) mg/dL Total Bilirubin 0.30 (0.2-1.3) mg/dL AST 24 (14-36) U/L ALT 23 (0-35) U/L Alkaline Phosphatase 59 (38-126) U/L Serum Total Protein 7.9 (6.3-8.2) g/dL Albumin 4.7 (3.5-5.0) g/dL Amylase 142 H (30-110) U/L Lipase 58 (23-300) U/L Urine Color (YELLOW) Urine Appearance (CLEAR) Urine pH (5-6) Ur Specific [place] (1.005-1.025) Urine Protein (Negative) Urine Ketones (NEGATIVE) Urine Blood (0-5) Avelino/ul Urine Nitrite (NEGATIVE) Urine Bilirubin (NEGATIVE) Urine Urobilinogen (0-1) mg/dL Ur Leukocyte Esterase (NEGATIVE) Urine WBC (Auto) (0-5) /HPF Urine RBC (Auto) (0-2) /HPF U Epithel Cells (Auto) (FEW) /HPF Urine Bacteria (Auto) (NEGATIVE) /HPF Urine Mucus (Auto) (NEGATIVE) /HPF Urine Culture Reflexed (NO) Urine Glucose (NEGATIVE) mg/dL Urine HCG, Qual NEGATIVE (Negative) 04/01/20 04/01/20 04/01/20 Range/Units 20:30 22:39 Unknown WBC (4.0-10.5) K/mm3 RBC (4.1-5.4) M/mm3 Hgb (12.0-16.0) gm/dl Hct (35-47) % MCV (78-100) fl MCH (26-32) pg MCHC (32-36) g/dl RDW (11.5-14.0) % Plt Count (150-450) K/mm3 MPV (7.5-11.0) fl Gran % (36.0-66.0) % Eos # (Auto) (0-0.5) Absolute Lymphs (auto) (1.0-4.6) Absolute Monos (auto) (0.0-1.3) Lymphocytes % (24.0-44.0) % Monocytes % (0.0-12.0) % Eosinophils % (0.00-5.0) % Basophils % (0.0-0.4) % Absolute Granulocytes (1.4-6.9) Basophils # (0-0.4) Sodium (137-145) mmol/L Potassium (3.5-5.1) mmol/L Chloride (98-107) mmol/L Carbon Dioxide (22-30) mmol/L Anion Gap (5-15) MEQ/L BUN (7-17) mg/dL Creatinine (0.52-1.04) mg/dL Estimated GFR ML/MIN Glucose (74-106) mg/dL Lactic Acid 2.4 H 1.0 (0.4-2.0) Calcium (8.4-10.2) mg/dL Total Bilirubin (0.2-1.3) mg/dL AST (14-36) U/L ALT (0-35) U/L Alkaline Phosphatase (38-126) U/L Serum Total Protein (6.3-8.2) g/dL Albumin (3.5-5.0) g/dL Amylase (30-110) U/L Lipase (23-300) U/L Urine Color YELLOW (YELLOW) Urine Appearance SLIGHTLY CLOUDY (CLEAR) Urine pH 5.0 (5-6) Ur Specific [place] 1.023 (1.005-1.025) Urine Protein NEGATIVE (Negative) Urine Ketones NEGATIVE (NEGATIVE) Urine Blood MODERATE (0-5) Avelino/ul Urine Nitrite NEGATIVE (NEGATIVE) Urine Bilirubin NEGATIVE (NEGATIVE) Urine Urobilinogen NEGATIVE (0-1) mg/dL Ur Leukocyte Esterase MODERATE (NEGATIVE) Urine WBC (Auto) 26-50 (0-5) /HPF Urine RBC (Auto) 3-5 (0-2) /HPF U Epithel Cells (Auto) FEW (FEW) /HPF Urine Bacteria (Auto) FEW (NEGATIVE) /HPF Urine Mucus (Auto) SLIGHT (NEGATIVE) /HPF Urine Culture Reflexed YES (NO) Urine Glucose NEGATIVE (NEGATIVE) mg/dL Urine HCG, Qual (Negative) 04/02/20 04/02/20 Range/Units 05:20 05:20 WBC 8.8 (4.0-10.5) K/mm3 RBC 4.78 (4.1-5.4) M/mm3 Hgb 12.2 (12.0-16.0) gm/dl Hct 39.3 (35-47) % MCV 82.2 (78-100) fl MCH 25.5 L (26-32) pg MCHC 31.0 L (32-36) g/dl RDW 14.9 H (11.5-14.0) % Plt Count 268 (150-450) K/mm3 MPV 10.5 (7.5-11.0) fl Gran % 60.5 (36.0-66.0) % Eos # (Auto) 0.11 (0-0.5) Absolute Lymphs (auto) 2.45 (1.0-4.6) Absolute Monos (auto) 0.89 (0.0-1.3) Lymphocytes % 27.9 (24.0-44.0) % Monocytes % 10.1 (0.0-12.0) % Eosinophils % 1.3 (0.00-5.0) % Basophils % 0.2 (0.0-0.4) % Absolute Granulocytes 5.32 (1.4-6.9) Basophils # 0.02 (0-0.4) Sodium 138 (137-145) mmol/L Potassium 4.0 (3.5-5.1) mmol/L Chloride 107 (98-107) mmol/L Carbon Dioxide 25 (22-30) mmol/L Anion Gap 9.5 (5-15) MEQ/L BUN 7 (7-17) mg/dL Creatinine 0.78 (0.52-1.04) mg/dL Estimated GFR > 60.0 ML/MIN Glucose 90 (74-106) mg/dL Lactic Acid (0.4-2.0) Calcium 8.1 L (8.4-10.2) mg/dL Total Bilirubin 0.50 (0.2-1.3) mg/dL AST 19 (14-36) U/L ALT 17 (0-35) U/L Alkaline Phosphatase 46 (38-126) U/L Serum Total Protein 6.2 L (6.3-8.2) g/dL Albumin 3.5 (3.5-5.0) g/dL Amylase (30-110) U/L Lipase (23-300) U/L Urine Color (YELLOW) Urine Appearance (CLEAR) Urine pH (5-6) Ur Specific [place] (1.005-1.025) Urine Protein (Negative) Urine Ketones (NEGATIVE) Urine Blood (0-5) Avelino/ul Urine Nitrite (NEGATIVE) Urine Bilirubin (NEGATIVE) Urine Urobilinogen (0-1) mg/dL Ur Leukocyte Esterase (NEGATIVE) Urine WBC (Auto) (0-5) /HPF Urine RBC (Auto) (0-2) /HPF U Epithel Cells (Auto) (FEW) /HPF Urine Bacteria (Auto) (NEGATIVE) /HPF Urine Mucus (Auto) (NEGATIVE) /HPF Urine Culture Reflexed (NO) Urine Glucose (NEGATIVE) mg/dL Urine HCG, Qual (Negative) - Radiology Impressions Radiology Exams & Impressions: Radiology Procedures Category Date Time Status ABDOMEN AND PELVIS W CONTRAST [CT] Stat Exams 04/02/20 07:49 Ordered ABDOMEN AND PELVIS W/0 CONTRAS [CT] Stat Exams 04/01/20 19:55 Completed Assessment/Plan (1) Abdominal pain Current Visit: Yes Status: Acute Qualifiers: Abdominal location: unspecified location Qualified Code(s): R10.9 - Unspecified abdominal pain Assessment & Plan: Unable to get details currently due to somnolence. Dr. Shameka Sears consulted, thank you. Pt attempting to tolerate po contrast for IV. Apparently has been having pain and vomiting x 2 weeks; may benefit from EGD if not having surgery. On IV zosyn for possible early appendicitis. WBC nl today. Code(s): R10.9 - UNSPECIFIED ABDOMINAL PAIN (2) UTI (urinary tract infection) Current Visit: Yes Status: Acute Qualifiers: Urinary tract infection type: acute cystitis Assessment & Plan: on IV zosyn day #1. Code(s): N39.0 - URINARY TRACT INFECTION, SITE NOT SPECIFIED (3) Abnormal uterine bleeding Current Visit: No Status: Chronic Assessment & Plan: May need [employer]MIN[employer] referral outpatient Code(s): N93.9 - ABNORMAL UTERINE AND VAGINAL BLEEDING, UNSPECIFIED
[2020-04-02] MEDS ORDERED: DIPRIVAN 200 MG/20 ML IV ONE (15:21)
[2020-04-02] MEDS ORDERED: Ketamine HCl 50 MG/ML ONE (15:38)
[2020-04-02] MEDS ORDERED: Quelicin Fliptop 200 MG/10 ML ONE (15:51)
[2020-04-02] MEDS ORDERED: Zemuron 100 MG/10 ML ONE (15:51)
[2020-04-02] MEDS ORDERED: Versed 2 MG/2 ML Injection ONE (15:51)
[2020-04-02] MEDS ORDERED: SUBLIMAZE 250 MCG/5 ML ONE (15:51)
[2020-04-02] MEDS ORDERED: Zofran 4 MG/2 ML VIAL ONE (16:07)
[2020-04-02] MEDS ORDERED: Decadron 4 MG INJ ONE (16:07)
[2020-04-02] MEDS ORDERED: Ephedrine Sulfate 50 MG/ML ONE (16:29)
[2020-04-02] MEDS ORDERED: ROBINUL ONE (16:30)
[2020-04-02] MEDS ORDERED: MEFOXIN 2 GM PREMIX** 2 GM/50 ML ML IV ONE (16:35)
[2020-04-02] MEDS ORDERED: Sensorcaine 0.25% 10 ML ONE (16:40)
[2020-04-02] MEDS ORDERED: Lactated Ringers 1,000 ML IV ONE (16:40)
[2020-04-02] MEDS ORDERED: BRIDION 200MG/2ML IV ONE (16:51)
--- NOTE | 2020-04-02 16:56 | XRAY ---
Indication: Abdomen pain. Suspect appendicitis. Multiple contiguous axial images obtained through the abdomen and pelvis using 80 cc Isovue-370 contrast. Enteric contrast also used. Comparison: Noncontrast exam one day earlier. Lung bases demonstrates minimal bibasilar dependent atelectasis. No infiltrate or effusion. Heart is not enlarged. Stomach and contrasted bowel loops appear nonobstructed. Appendix remains prominent up to 9 mm diameter again without periappendiceal stranding again concerning for mild or early appendicitis. No free fluid/air. Remaining liver, gallbladder, pancreas, spleen, adrenal glands, kidneys, ureters, bladder, uterus, and aorta appear unremarkable. No pathologic retroperitoneal lymphadenopathy. Impression: 1. Continued prominent appendix without periappendiceal stranding. Again rule out mild/early appendicitis. 2. Remaining CT abdomen/pelvis with contrast exam is negative. Common: Preliminary interpretation was made by [facility]. No critical discrepancy.
[2020-04-02] MEDS ORDERED: TORAdol 30 mg Injection ONE (17:30)
[2020-04-02] MEDS ORDERED: Lactated Ringers 500 ML IV SCH (18:00)
[2020-04-02] MEDS ORDERED: Lactated Ringers 1,000 ML IV SCH (18:24)
[2020-04-02] MEDS: NORCO 5/325 MG PO PRN (21:38)
[2020-04-03] MEDS: Zosyn 2.25 GM 2.25 GM in Sodium Chloride 100ML MINI-BAG PLUS 100 ML IV SCH ×3 (00:07→11:02)
[2020-04-03] MEDS: Sodium Chloride 0.9% 1000 ML 1,000 ML IV SCH (00:11)
[2020-04-03 05:46] LABS: Hematocrit 39.5 % (35-47); Hemoglobin 12.6 gm/dl (12.0-16.0); Mean Cell Volume 81.1 fl (78-100); Mean Corpuscular Hemoglobin 25.9 pg (26-32); Mean Corpuscular Hgb Concent. 31.9 g/dl (32-36); Mean Platelet Volume 10.2 fl (7.5-11.0); Platelet Count 302 K/mm3 (150-450); Red Blood Count 4.87 M/mm3 (4.1-5.4); Red Cell Distribution Width 14.7 % (11.5-14.0); White Blood Count 7.5 K/mm3 (4.0-10.5)
[2020-04-03 05:48] LABS: ANION GAP 11.3 MEQ/L (5-15); BLOOD UREA NITROGEN 5 mg/dL (7-17); CHLORIDE 107 mmol/L (98-107); Carbon Dioxide 23 mmol/L (22-30); Creatinine 1 0.72 mg/dL (0.52-1.04); Glucose 117 mg/dL (74-106); Potassium 4.2 mmol/L (3.5-5.1); SODIUM 137 mmol/L (137-145)
[2020-04-03] MEDS: NORCO 5/325 MG PO PRN (07:00)
[2020-04-03 11:35] VITALS: BP 98/48; PULSE 54; O2SAT 99
--- NOTE | 2020-04-03 11:36 | PCM.DS ---
Discharge Summary Date of Admission: 04/02/20 01:40 Admitting Physician: HENRY FERGUSON Consults: Consults on Case 04/02/20 01:46 Consult Surgery ROUTINE Primary Care Provider: HENRY FERGUSON Allergies Allergies Latex, Natural Rubber Allergy (Verified 10/16/19 13:56) Hospital Summary - Hospital Course Hospital Course: Pt is 24 yo approx 2 mo post who came to ER c/o persistent vaginal bleeding, and bilat lower abd pain and vomiting x 2 weeks. Denied fever. She had an elevated WBC count (11.7) and CT w/o contrast showed prominent appendix with no stranding. Surgery was consulted and advised watch pt overnight with IV fluids and antibiotics. The next morning when I saw pt she was very somnolent due to phenergan; she was not tolerating the po contrast for another CT (ordered by surgery). She ended up having an EGD yesterday, which was noncontributory, then an appendectomy. She has been feeling much better since last night. She has tolerated liquid diet and would like to eat [place]. I advised please start with crackers or toast. Will discharge the pt to home; f/u with surgery as scheduled and f/u with another provider in 1 week (I will be out of town). - Vitals & Intake/Output Vital Signs: Vital Signs Temperature 98.5 F 04/03/20 07:36 Pulse Rate 51 L 04/03/20 07:36 Respiratory Rate 16 04/03/20 07:36 Blood Pressure 93/46 04/03/20 07:36 O2 Sat by Pulse Oximetry 98 04/03/20 07:36 Intake & Output: Intake & Output 03/31/20 04/01/20 04/02/20 04/03/20 11:59 11:59 11:59 11:59 Intake Total 0 2404 Output Total 450 Balance 0 1954 Weight 85 kg 86 kg - Lab Result Diagrams: 04/03/20 05:20 04/03/20 05:20 Lab Results-Last 24 Hrs: Lab Results-Last 24 Hours 04/03/20 04/03/20 Range/Units 05:20 05:20 WBC 7.5 (4.0-10.5) K/mm3 RBC 4.87 (4.1-5.4) M/mm3 Hgb 12.6 (12.0-16.0) gm/dl Hct 39.5 (35-47) % MCV 81.1 (78-100) fl MCH 25.9 L (26-32) pg MCHC 31.9 L (32-36) g/dl RDW 14.7 H (11.5-14.0) % Plt Count 302 (150-450) K/mm3 MPV 10.2 (7.5-11.0) fl Sodium 137 (137-145) mmol/L Potassium 4.2 (3.5-5.1) mmol/L Chloride 107 (98-107) mmol/L Carbon Dioxide 23 (22-30) mmol/L Anion Gap 11.3 (5-15) MEQ/L BUN 5 L (7-17) mg/dL Creatinine 0.72 (0.52-1.04) mg/dL Estimated GFR > 60.0 ML/MIN Glucose 117 H (74-106) mg/dL Calcium 9.0 (8.4-10.2) mg/dL Micro Results-Entire Visit: Microbiology 04/01/20 Unknown Urine Culture - Final Urine, Void <10K NORMAL SKIN KIRSTEN PROBABLE SKIN CONTAMINANT - Radiology Exams Ordered Rad Exams-Entire Visit: Radiology Procedures Category Date Time Status ABDOMEN AND PELVIS W CONTRAST [CT] Stat Exams 04/02/20 07:49 Completed ABDOMEN AND PELVIS W/0 CONTRAS [CT] Stat Exams 04/01/20 19:55 Completed - Procedures and Test Procedures and Tests throughout Hospitalization: Therapy Orders & Screens 04/02/20 02:27 RT Screen per Nursing Assess ONCE Comment: Protocol Order Physician Instructions: Greater than 3 points order RT Admission Screen Reason For Exam: Triggered on Admission Diagnosis: Abd pain/UTI Diagnosis: Abd pain/UTI Pneumonia: No Home O2: No Asthma: Yes CHF: No Home CPAP/BIPAP: No Home Nebs/MDI: Yes Total Points: 9 Smoking Cessation Education ONCE Comment: Diagnosis: Abd pain/UTI Smoking Status: Current every day smoker How long have you smoked: 7 Have you smoked in the past 12 months: Yes Approximately how many cigarettes per day: 5 Do you dip or chew tobacco: No If,Former Smoker,when did you quit: 2 MONTHS Discharge Exam General Appearance: no apparent distress, alert Neurologic Exam: oriented x 3, cooperative Eye Exam: eyes nml inspection Ears, Nose, Throat Exam: moist mucous membranes Neck Exam: normal inspection Respiratory Exam: normal breath sounds, lungs clear, No crackles/rales, No rhonchi, No wheezing Cardiovascular Exam: regular rate/rhythm, normal heart sounds, No murmur Gastrointestinal/Abdomen Exam: soft, normal bowel sounds, other (surgical wounds c/d/i (s/p laparoscopy)), No tenderness Extremity Exam: normal inspection, No pedal edema, No swelling Skin Exam: normal color, warm, dry, No rash Final Diagnosis/Problem List - Final Discharge Diagnosis/Problem (1) S/P appendectomy Current Visit: Yes Status: Acute Assessment & Plan: Abd pain and vomiting have resolved. Pt is in a hurry to get back home to her infant. Advised advance diet slowly. Code(s): Z90.49 - ACQUIRED ABSENCE OF OTHER SPECIFIED PARTS OF DIGESTIVE TRACT (2) UTI (urinary tract infection) Current Visit: Yes Status: Ruled-out Code(s): N39.0 - URINARY TRACT INFECTION, SITE NOT SPECIFIED (3) Abnormal uterine bleeding Current Visit: No Status: Chronic Assessment & Plan: If persistent, will need to follow up with me in a few weeks. Code(s): N93.9 - ABNORMAL UTERINE AND VAGINAL BLEEDING, UNSPECIFIED - Discharge Disposition: Home, Self-Care Condition: Good Prescriptions: No Action No Reportable Medications [No Reported Medications] Follow up with: HENRY FERGUSON [Primary Care Provider] - 1 Week
--- NOTE | 2020-04-04 08:45 | CONS ---
CONSULT DATE: 04/02/2020 REASON FOR CONSULT: Abdominal pain. HISTORY: This patient has a history of two to four weeks of nausea, vomiting, diarrhea and abdominal pain. She was at work and her work sent her to the emergency room yesterday because her pain was more severe. The pain did seem more in the right lower quadrant today. She said it was quite vague yesterday. She had a vaginal delivery about two months ago. She does smoke marijuana. She denies any chest pain, shortness of breath, fever or chills. No one has been sick around her that she knows of. PAST MEDICAL HISTORY: Narcolepsy, epilepsy, asthma. PAST SURGICAL HISTORY: [place] teeth removal. MEDICATIONS: Reviewed OCT. ALLERGIES: NKDA. LATEX. NATURAL RUBBER. SOCIAL HISTORY: Positive for tobacco. Occasional alcohol. FAMILY HISTORY: Mental intellectual development disorder (IDD). No bleeding disorders. PHYSICAL EXAMINATION: GENERAL: No acute distress. HEENT: Sclera nonicteric. Extraocular movements intact. NECK: Supple. No JVD. CHEST: Nonlabored breathing. ABDOMEN: Soft, nondistended, focally tender in the right lower quadrant at McBurney's point with voluntary guarding. EXTREMITIES: No peripheral edema. NEURO: Awake, alert, oriented. PSYCH: Appropriate mood and affect. LAB DATA AND TESTS: CT scan with p.o. and IV contrast concerning for early appendicitis. ASSESSMENT AND PLAN: The patient's history does not really sound like appendicitis. However, her CT scan and physical exam is quite concerning for early appendicitis. It seems like she has had a longer lasting illness for some other reason with this subacute nausea, vomiting and acute appendicitis developing the last day or so. CT reviewed personally by me and there is nonfilling of the appendix with oral contrast. The cecum is opacified by oral contrast. There is mild dilatation of the appendix. It does seem consistent with early appendicitis. Risks and benefits of surgery discussed in depth with the patient with plans for EGD to evaluate for any pathology causing her subacute nausea and vomiting as well as laparoscopic appendectomy possible open. The patient is aware that appendectomy may not resolve her symptoms and it is certainly not 100% clear whether she has appendicitis or not. The patient would like to proceed with surgery.
--- NOTE | 2020-04-04 09:11 | OP ---
SURGERY DATE/TIME: 04/02/2020 8086 PREOPERATIVE DIAGNOSES: 1) Nausea and vomiting. 2) Acute appendicitis. POSTOPERATIVE DIAGNOSES: 1) Nausea and vomiting. 2) Acute nonperforated early appendicitis. PROCEDURES: 1) EGD. 2) Laparoscopic appendectomy. SURGEON: Lul Sears M.D. ANESTHESIA: General. ESTIMATED BLOOD LOSS: Less than 10 cc. COMPLICATIONS: None. SPECIMEN: Appendix. FINDINGS: Normal EGD. Early acute nonperforated appendicitis. PATIENT PRESENTATION: This patient presents with CT scan and physical exam findings concerning for acute appendicitis. However her history is not really consistent with acute appendicitis and she has subacute nausea and vomiting going on four weeks. Risks and benefits of EGD, laparoscopic appendectomy with possible open were discussed in depth with the patient and the patient elected to proceed with surgery. DESCRIPTION OF PROCEDURE: The patient was brought to the OR and placed supine on the operating table, placed under general anesthesia. Attention first turned to EGD. Gastroscope was inserted into the mouth. Esophagus was traversed. Stomach was insufflated. Pylorus was traversed. The first and second portion of the duodenum were traversed and the scope removed. Retroflexion performed. Exam was completely normal. There is no hiatal hernia. There is no gastritis. Scope was straightened and further removed. Esophagus further evaluated and appeared completely normal. The scope removed. The upper endoscopy was completely normal. Attention was then turned to the appendectomy. The abdomen was prepped and draped in sterile fashion. A small incision was made at the superior aspect of the umbilicus. Blunt dissection performed on the fascia. The fascia was clamped. Veress needle inserted. Pneumoperitoneum obtained. A 5 mm optical trocar was inserted and under direct visualization the abdomen was entered. Area on entry was inspected. There did not appear to be any inadvertent injury. The patient placed in Trendelenburg and rolled to the left. A 5 mm left lower quadrant and 12 mm left lateral trocars were placed. The appendix was found quite easily and lifted up. It was dilated and consistent with early appendicitis. There was not really much in the way of surrounding inflammation. A window was created between the base of appendix and mesoappendix. The mesoappendix transected with the LigaSure. The base of the appendix transected at its junction with the cecum with a 45 EndoGIA white load stapler. Appendix was removed with a bag. The pelvis was examined. The left tube and ovary and the right tube and ovary appeared completely normal. The uterus appeared normal. The small bowel was run from the cecum back about two feet and appeared completely normal. There were no other obvious pathology besides the appendix. The 12 mm trocar site was closed with 0 Vicryl suture with suture passer under direct visualization. The remaining trocars were removed under direct visualization. The wound injected with 0.25% Marcaine. The abdomen desufflated. Wounds closed with 4-0 Vicryl sutures. Steri-Strips and dressings were applied. The patient was recovered and taken to PACU in stable condition.
== END 2020-04-03 12:05 | disposition home or self-care (01) ==
LOC: ED 18:54 → MED SURG 04-02 01:40 → INTOOBSV 04-02 01:40 → UNDOADMIN 04-02 01:40
PROVIDERS: ADMIT Family Medicine; ATTEND Family Medicine
DX: K35.80 Unspecified acute appendicitis (principal); N93.9 Abnormal uterine and vaginal bleeding, unspecified; R11.2 Nausea with vomiting, unspecified; N39.0 Urinary tract infection, site not specified; G47.30 Sleep apnea, unspecified; R19.7 Diarrhea, unspecified; Z79.899 Other long term (current) drug therapy
CPT/HCPCS: 36415; 43235; 44970; 74176; 74177; 80048; 80053; 81001; 82150; 83605; 83690; 84703; 85025; 85027; 87086; 96365; 96374; 96375; 99284; G0378; J0330; J0694; J1100; J1170; J1885; J2250; J2405; J2543; J2550; J2704; J3010; A9270-GY

== ENCOUNTER 2020-06-01 15:55 | Emergency (ER) | payer OTHER ==
--- NOTE | 2020-06-01 16:25 | ERPHSYRPT ---
- History of Present Illness Time Seen by Provider: 06/01/20 16:30 Historian: patient Exam Limitations: no limitations Patient Subjective Stated Complaint: L flank pain, NV Triage Nursing Assessment: pt to ED c/o NV and L flank pain, no specific onset. states these sx started in December after giving to daughter, came to ED in April and had emergency appendectomy. was told that sx may not go away after surgery. states sx have not decreased since appy. "my appendix was swollen so they went ahead and took it, but they said it may not have been the problem." rates 1/10 pain at rest but when vomiting pain shoots sharp and is 10/10. denies urinary or bowel issues currently. abd soft and tender to L upper quad. bowel sounds active in all quads. LBM this am. LMP 3 wks ago. Physician History: vague and recurring pains for a few months in her left flank area, sometimes the pain radiates down her lower back, sometimes around to her abdomen, no pattern, no home tx helps, she has nausea, no particular pattern to the symptoms, overall a poor historian. Timing/Duration: intermittent, other (for about 4 months) Activities at Onset: none Quality: cramping, dullness Abdominal Pain Onset Location: flank Pain Radiation: flank Severity of Pain-Max: moderate Severity of Pain-Current: mild Modifying Factors: Improves With: nothing Associated Symptoms: No fever/chills, No shortness of breath Previous symptoms: same symptoms as today Allergies/Adverse Reactions: Latex, Natural Rubber Allergy (Verified 06/01/20 16:20) Hx Tetanus, Diphtheria Vaccination/Date Given: Yes Hx Influenza Vaccination/Date Given: Yes Hx Pneumococcal Vaccination/Date Given: No Immunizations Up to Date: Yes Travel Risk - International Travel Have you traveled outside of the country in past 3 weeks: No - Coronavirus Screening Are you exhibiting any of the following symptoms?: Yes Symptoms: Vomiting/Diarrhea Close contact with a COVID-19 positive Pt in past 14-21 Days: No - Review of Systems Constitutional: No Symptoms Eyes: No Symptoms Ears, Nose, & Throat: No Symptoms Respiratory: No Symptoms Cardiac: No Symptoms Abdominal/Gastrointestinal: Nausea, Other (intermittent left side belly cramps) Genitourinary Symptoms: No Symptoms Musculoskeletal: Back Pain Skin: No Symptoms Neurological: No Symptoms Psychological: No Symptoms Endocrine: No Symptoms Hematologic/Lymphatic: No Symptoms Immunological/Allergic: No Symptoms All Other Systems: Reviewed and Negative - Past Medical History Pertinent Past Medical History: Yes Neurological History: Epilepsy, Seizures ENT History: No Pertinent History Cardiac History: Other Respiratory History: Asthma, Sleep Apnea Endocrine Medical History: No Pertinent History Musculoskeletal History: No Pertinent History GI Medical History: No Pertinent History, Hemorrhoids History: No Pertinent History Psycho-Social History: No Pertinent History Female Reproductive Disorders: No Pertinent History Other Medical History: palpitations, pre-eclampsia - Past Surgical History Past Surgical History: Yes Neuro Surgical History: No Pertinent History Cardiac: No Pertinent History Respiratory: No Pertinent History Gastrointestinal: Appendectomy Genitourinary: No Pertinent History Musculoskeletal: No Pertinent History Female Surgical History: No Pertinent History Other Surgical History: WISDOM TEETH - Social History Smoking Status: Current every day smoker How long have you smoked: 7 Exposure to second hand smoke: Yes Drug Use: marijuana Patient Lives Alone: No - Female History Hx Last Menstrual Period: 3 wks ago Hx Now: No (unsure) - Nursing Vital Signs Nursing Vital Signs: Initial Vital Signs Temperature 98.2 F 06/01/20 16:08 Pulse Rate 82 06/01/20 16:08 Respiratory Rate 16 06/01/20 16:08 Blood Pressure 137/82 06/01/20 16:08 O2 Sat by Pulse Oximetry 98 06/01/20 16:08 Pain Scale Pain Intensity 3 - Physical Exam General Appearance: no apparent distress Eye Exam: PERRL/EOMI Ears, Nose, Throat Exam: normal ENT inspection Neck Exam: normal inspection, non-tender Respiratory Exam: normal breath sounds, lungs clear Cardiovascular Exam: regular rate/rhythm, normal heart sounds Gastrointestinal/Abdomen Exam: soft, normal bowel sounds Pelvic Exam: not done Rectal Exam: deferred Back Exam: normal inspection, other (vague left flank pain) Extremity Exam: normal inspection Neurologic Exam: alert, oriented x 3, cooperative Skin Exam: normal color SpO2 Interpretation: normal SpO2: 98 O2 Delivery: Room Air - Course Nursing assessment & vital signs reviewed: Yes - CT Exams Abdomen/Pelvis CT Interpretation: Negative, Tele-radiologist Report Ordered Tests: Active Orders 24 hr Category Date Time Status IV Insertion STAT Care 06/01/20 16:16 Completed ABDOMEN AND PELVIS W/0 CONTRAS [CT] Stat Exams 06/01/20 17:06 Taken CBC W DIFF Stat Lab 06/01/20 16:10 Completed CMP Stat Lab 06/01/20 16:10 Completed HCG,QUALITATIVE URINE Stat Lab 06/01/20 16:10 Completed UA W/RFX UR CULTURE Stat Lab 06/01/20 16:10 Completed Medication Summary Discontinued Medications Generic Name Dose Route Start Last Admin Trade Name Yifan PRN Reason Stop Dose Admin Acetaminophen 1,000 mg 06/01/20 16:40 06/01/20 16:49 Tylenol Extra Strength 500 Mg PO 06/01/20 16:41 1,000 mg STAT STA Administration Acetaminophen Confirm 06/01/20 16:48 Tylenol Extra Strength 500 Mg Administered 06/01/20 16:49 Dose 1,000 mg .ROUTE .STK-MED ONE Ketorolac Tromethamine 60 mg 06/01/20 17:46 06/01/20 17:52 Toradol 30 Mg Injection IM 06/01/20 17:47 60 mg STAT ONE Administration Ketorolac Tromethamine Confirm 06/01/20 17:50 Toradol 30 Mg Injection Administered 06/01/20 17:51 Dose 60 mg .ROUTE .STK-MED ONE Lab/Rad Data: Laboratory Result Diagrams 06/01/20 16:10 06/01/20 16:10 Laboratory Results 06/01/20 06/01/20 06/01/20 Range/Units 16:10 16:10 16:10 WBC (4.0-10.5) K/mm3 RBC (4.1-5.4) M/mm3 Hgb (12.0-16.0) gm/dl Hct (35-47) % MCV (78-100) fl MCH (26-32) pg MCHC (32-36) g/dl RDW (11.5-14.0) % Plt Count (150-450) K/mm3 MPV (7.5-11.0) fl Gran % (36.0-66.0) % Eos # (Auto) (0-0.5) Absolute Lymphs (auto) (1.0-4.6) Absolute Monos (auto) (0.0-1.3) Lymphocytes % (24.0-44.0) % Monocytes % (0.0-12.0) % Eosinophils % (0.00-5.0) % Basophils % (0.0-0.4) % Absolute Granulocytes (1.4-6.9) Basophils # (0-0.4) Sodium 136 L (137-145) mmol/L Potassium 3.5 (3.5-5.1) mmol/L Chloride 102 (98-107) mmol/L Carbon Dioxide 26 (22-30) mmol/L Anion Gap 10.5 (5-15) MEQ/L BUN 6 L (7-17) mg/dL Creatinine 0.79 (0.52-1.04) mg/dL Estimated GFR > 60.0 ML/MIN Glucose 112 H (74-106) mg/dL Calcium 9.8 (8.4-10.2) mg/dL Total Bilirubin 0.30 (0.2-1.3) mg/dL AST 21 (14-36) U/L ALT 15 (0-35) U/L Alkaline Phosphatase 58 (38-126) U/L Serum Total Protein 8.0 (6.3-8.2) g/dL Albumin 4.9 (3.5-5.0) g/dL Urine Color YELLOW (YELLOW) Urine Appearance SLIGHTLY CLOUDY (CLEAR) Urine pH 7.0 (5-6) Ur Specific [place] 1.017 (1.005-1.025) Urine Protein NEGATIVE (Negative) Urine Ketones NEGATIVE (NEGATIVE) Urine Blood NEGATIVE (0-5) Avelino/ul Urine Nitrite NEGATIVE (NEGATIVE) Urine Bilirubin NEGATIVE (NEGATIVE) Urine Urobilinogen NEGATIVE (0-1) mg/dL Ur Leukocyte Esterase TRACE (NEGATIVE) Urine WBC (Auto) 3-5 (0-5) /HPF Urine RBC (Auto) NONE (0-2) /HPF U Epithel Cells (Auto) RARE (FEW) /HPF Urine Bacteria (Auto) NONE (NEGATIVE) /HPF Urine Mucus (Auto) SLIGHT (NEGATIVE) /HPF Urine Culture Reflexed NO (NO) Urine Glucose NEGATIVE (NEGATIVE) mg/dL Urine HCG, Qual NEGATIVE (Negative) 06/01/20 Range/Units 16:10 WBC 8.9 (4.0-10.5) K/mm3 RBC 5.24 (4.1-5.4) M/mm3 Hgb 13.6 (12.0-16.0) gm/dl Hct 42.3 (35-47) % MCV 80.7 (78-100) fl MCH 26.0 (26-32) pg MCHC 32.2 (32-36) g/dl RDW 15.0 H (11.5-14.0) % Plt Count 337 (150-450) K/mm3 MPV 10.3 (7.5-11.0) fl Gran % 59.6 (36.0-66.0) % Eos # (Auto) 0.04 (0-0.5) Absolute Lymphs (auto) 2.52 (1.0-4.6) Absolute Monos (auto) 1.00 (0.0-1.3) Lymphocytes % 28.4 (24.0-44.0) % Monocytes % 11.3 (0.0-12.0) % Eosinophils % 0.5 (0.00-5.0) % Basophils % 0.2 (0.0-0.4) % Absolute Granulocytes 5.28 (1.4-6.9) Basophils # 0.02 (0-0.4) Sodium (137-145) mmol/L Potassium (3.5-5.1) mmol/L Chloride (98-107) mmol/L Carbon Dioxide (22-30) mmol/L Anion Gap (5-15) MEQ/L BUN (7-17) mg/dL Creatinine (0.52-1.04) mg/dL Estimated GFR ML/MIN Glucose (74-106) mg/dL Calcium (8.4-10.2) mg/dL Total Bilirubin (0.2-1.3) mg/dL AST (14-36) U/L ALT (0-35) U/L Alkaline Phosphatase (38-126) U/L Serum Total Protein (6.3-8.2) g/dL Albumin (3.5-5.0) g/dL Urine Color (YELLOW) Urine Appearance (CLEAR) Urine pH (5-6) Ur Specific [place] (1.005-1.025) Urine Protein (Negative) Urine Ketones (NEGATIVE) Urine Blood (0-5) Avelino/ul Urine Nitrite (NEGATIVE) Urine Bilirubin (NEGATIVE) Urine Urobilinogen (0-1) mg/dL Ur Leukocyte Esterase (NEGATIVE) Urine WBC (Auto) (0-5) /HPF Urine RBC (Auto) (0-2) /HPF U Epithel Cells (Auto) (FEW) /HPF Urine Bacteria (Auto) (NEGATIVE) /HPF Urine Mucus (Auto) (NEGATIVE) /HPF Urine Culture Reflexed (NO) Urine Glucose (NEGATIVE) mg/dL Urine HCG, Qual (Negative) Unremarkable - Progress Progress: improved Progress Note: Mild, recurring, vague pain left flank, sometimes radiating, work-up neg, see PCP. 06/02/20 03:09 Counseled pt/family regarding: lab results, diagnosis, need for follow-up, rad results - Departure Departure Disposition: Home Clinical Impression: Back pain Qualifiers: Back pain location: low back pain Back pain laterality: left Sciatica presence: without sciatica Nausea & vomiting Qualifiers: Vomiting type: unspecified Vomiting Intractability: non-intractable Qualified Code(s): R11.2 - Nausea with vomiting, unspecified Condition: Stable Critical Care Time: No Referrals: HENRY PARRA [Primary Care Provider] - Instructions: Flank Pain, Nausea and Vomiting, Adult (DC) Additional Instructions: Medication as helpful. Activity and diet as tolerated. If your back keeps bothering you, your PCP might order an MRI. If you keep having nausea and vomiting after eating, your PCP might order gallbladder tests. Prescriptions: Ondansetron ODT 4 MG [Zofran Odt 4 mg] 4 mg PO Q6H PRN PRN #20 tab.rapdis PRN Reason: Nausea/Vomiting Etodolac 400 mg [Lodine 400 mg] 400 mg PO BID PRN PRN #20 tablet PRN Reason: Pain
[2020-06-01] MEDS ORDERED: TYLENOL EXTRA STRENGTH 500 MG PO STA (16:40)
[2020-06-01] MEDS ORDERED: TYLENOL EXTRA STRENGTH 500 MG ONE (16:48)
[2020-06-01 16:57] LABS: Absolute Neutrophil Ct (ANC) 5.28 (1.4-6.9); BASOPHIL % 0.2 % (0.0-0.4); Basophil (Absolute #) 0.02 (0-0.4); Eosinophil % 0.5 % (0.00-5.0); Eosinophil (Absolute #) 0.04 (0-0.5); Hematocrit 42.3 % (35-47); Hemoglobin 13.6 gm/dl (12.0-16.0); Lymphocyte (Absolute #) 2.52 (1.0-4.6); Lymphocytes % 28.4 % (24.0-44.0); Mean Cell Volume 80.7 fl (78-100); Mean Corpuscular Hgb Concent. 32.2 g/dl (32-36); Mean Platelet Volume 10.3 fl (7.5-11.0); Monocytes % 11.3 % (0.0-12.0); Neutrophil % 59.6 % (36.0-66.0); Platelet Count 337 K/mm3 (150-450); Red Blood Count 5.24 M/mm3 (4.1-5.4); White Blood Count 8.9 K/mm3 (4.0-10.5)
[2020-06-01 17:04] LABS: ALBUMIN 4.9 g/dL (3.5-5.0); ALKALINE PHOSPHATASE 58 U/L (38-126); ANION GAP 10.5 MEQ/L (5-15); BLOOD UREA NITROGEN 6 mg/dL (7-17); CHLORIDE 102 mmol/L (98-107); Calcium 9.8 mg/dL (8.4-10.2); Carbon Dioxide 26 mmol/L (22-30); Creatinine 1 0.79 mg/dL (0.52-1.04); EST GLOMERULAR FILTRATION RATE > 60.0 ML/MIN; Glucose 112 mg/dL (74-106); Potassium 3.5 mmol/L (3.5-5.1); SGOT/AST 21 U/L (14-36); SGPT/ALT 15 U/L (0-35); SODIUM 136 mmol/L (137-145)
[2020-06-01 17:05] LABS: Appearance SLIGHTLY CLOUDY (CLEAR); Bilirubin NEGATIVE (NEGATIVE); Blood NEGATIVE Ery/ul (0-5); Epithelial Cells RARE /HPF (FEW); Glucose NEGATIVE (NEGATIVE); Ketones NEGATIVE (NEGATIVE); Leukocyte Esterase TRACE (NEGATIVE); Mucus SLIGHT /HPF (NEGATIVE); Nitrite NEGATIVE (NEGATIVE); Protein,Urine Dip NEGATIVE (Negative); Specific Gravity 1.017 (1.005-1.025); Urobilinogen NEGATIVE mg/dL (0-1)
[2020-06-01 17:44] VITALS: BP 107/65
[2020-06-01] MEDS ORDERED: TORAdol 30 mg Injection IM ONE (17:46)
[2020-06-01] MEDS ORDERED: TORAdol 30 mg Injection ONE (17:50)
[2020-06-01 18:32] VITALS: O2SAT 98
[2020-06-01 18:41] VITALS: PULSE 64
--- NOTE | 2020-06-02 08:41 | XRAY ---
Indication: Left back pain, nausea, and vomiting since January 2020. Multiple contiguous axial images obtained through the abdomen and pelvis without contrast using renal stone protocol. Comparison: April 02, 2020. Lung bases are clear. Heart is not enlarged. Right lower kidney demonstrates nonobstructing punctate calculus probably obscured on previous contrasted exam. No calculus or evidence for obstructive uropathy in the left system. Noncontrasted stomach and bowel loops appear nonobstructed. Interval appendectomy. No free fluid/air. Remaining liver, gallbladder, pancreas, spleen, adrenal glands, kidneys, ureters, bladder, uterus, and aorta appear unremarkable for noncontrast exam. Osseous structures intact. Impression: 1. Nonobstructing right renal punctate calculus. 2. Remaining CT abdomen/pelvis without contrast exam is negative.
== END 2020-06-01 18:52 | disposition home or self-care (01) ==
LOC: ED 15:55
DX: M54.5 Low back pain (principal); R11.2 Nausea with vomiting, unspecified
CPT/HCPCS: 36000; 36415; 74176; 80053; 81001; 84703; 85025; 96372; 99284; J1885; A9270-GY

== ENCOUNTER 2021-09-19 00:36 | Inpatient (IN) | payer OTHER ==
[2021-09-19] MEDS ORDERED: PITOCIN 30 UNITS/ LR 500 ML 30 UNITS/500 ML PLAST..BAG IV SCH (05:00)
[2021-09-19] MEDS ORDERED: BRETHINE 1 MG/ML SQ PRN (05:00)
[2021-09-19] MEDS ORDERED: XYLOCAINE 1% HCL 20 ML MDV IJ PRN (05:00)
[2021-09-19] MEDS: Lactated Ringers 1,000 ML IV SCH ×3 (05:31→22:18)
[2021-09-19 05:41] LABS: Absolute Neutrophil Ct (ANC) 10.01 (1.4-6.9); Basophil (Absolute #) 0.04 (0-0.4); Eosinophil % 0.8 % (0.00-5.0); Hematocrit 36.5 % (35-47); Hemoglobin 11.5 gm/dl (12.0-16.0); Lymphocyte (Absolute #) 1.68 (1.0-4.6); Mean Cell Volume 78.8 fl (78-100); Mean Corpuscular Hemoglobin 24.8 pg (26-32); Mean Corpuscular Hgb Concent. 31.5 g/dl (32-36); Mean Platelet Volume 10.4 fl (7.5-11.0); Monocyte (Absolute #) 1.14 (0.0-1.3); Monocytes % 8.8 % (0.0-12.0); Neutrophil % 77.1 % (36.0-66.0); Platelet Count 301 K/mm3 (150-450); Red Blood Count 4.63 M/mm3 (4.1-5.4); Red Cell Distribution Width 15.5 % (11.5-14.0)
[2021-09-19 06:18] LABS: Amphetamine,Urine NEGATIVE (NEGATIVE); Barbiturate,Urine NEGATIVE (NEGATIVE); Benzodiazepine,Urine NEGATIVE (NEGATIVE); Cocaine,Urine NEGATIVE (NEGATIVE); Methadone,Urine NEGATIVE (NEGATIVE); Opiate,Urine NEGATIVE (NEGATIVE); PCP,Urine NEGATIVE (NEGATIVE); THC,Urine NEGATIVE (NEGATIVE)
[2021-09-19] MEDS ORDERED: Lactated Ringers 1,000 ML IV ONE (08:03)
[2021-09-19] MEDS ORDERED: Ephedrine Sulfate 50 MG/ML IV PRN (08:03)
[2021-09-19] MEDS ORDERED: FENTANYL 2 MCG-BUPIV 0.125%-NS 250 ML Epidur 250 ML EPIDURAL SCH (08:15)
[2021-09-19] MEDS ORDERED: Ambien 10 MG PO PRN (12:00)
[2021-09-19] MEDS ORDERED: Dermoplast Spray TP PRN (12:00)
[2021-09-19] MEDS ORDERED: Anucort-HC SUPPOSITORY PR PRN (12:00)
[2021-09-19] MEDS ORDERED: NORCO 5/325 MG PO PRN (12:00)
[2021-09-19] MEDS ORDERED: CORTISONE 1% CREAM TP PRN (12:00)
[2021-09-19] MEDS ORDERED: Mylicon 80MG PO PRN (12:00)
[2021-09-19] MEDS ORDERED: Restoril 15 MG PO PRN (12:00)
[2021-09-19] MEDS ORDERED: TUCKS TP PRN (12:00)
[2021-09-19] MEDS ORDERED: Adacel Vial IM ONE (12:00)
[2021-09-19] MEDS ORDERED: Dulcolax 10 MG SUPP PR PRN (12:00)
[2021-09-19] MEDS: Colace 100 MG PO SCH (21:26)
[2021-09-19] MEDS: MOTRIN 400 MG PO PRN (21:26)
[2021-09-20] MEDS: MOTRIN 400 MG PO PRN ×2 (04:22→20:42)
[2021-09-20 05:42] LABS: Absolute Neutrophil Ct (ANC) 7.54 (1.4-6.9); Basophil (Absolute #) 0.03 (0-0.4); Eosinophil % 0.8 % (0.00-5.0); Eosinophil (Absolute #) 0.09 (0-0.5); Hematocrit 35.2 % (35-47); Hemoglobin 10.9 gm/dl (12.0-16.0); Lymphocyte (Absolute #) 1.74 (1.0-4.6); Lymphocytes % 16.4 % (24.0-44.0); Mean Cell Volume 80.5 fl (78-100); Mean Corpuscular Hemoglobin 24.9 pg (26-32); Mean Platelet Volume 10.6 fl (7.5-11.0); Monocyte (Absolute #) 1.19 (0.0-1.3); Monocytes % 11.2 % (0.0-12.0); Neutrophil % 71.3 % (36.0-66.0); Platelet Count 252 K/mm3 (150-450); Red Blood Count 4.37 M/mm3 (4.1-5.4); Red Cell Distribution Width 15.6 % (11.5-14.0); White Blood Count 10.6 K/mm3 (4.0-10.5)
[2021-09-20] MEDS: TYLENOL EXTRA STRENGTH 500 MG PO PRN ×2 (06:23→15:26)
[2021-09-20 08:21] LABS: HBsAg Screen Negative (Negative)
[2021-09-20] MEDS: Colace 100 MG PO SCH ×2 (10:20→20:42)
[2021-09-20] MEDS: FERREX 150 PO SCH (13:40)
[2021-09-21] MEDS: MOTRIN 400 MG PO PRN ×2 (03:09→09:17)
[2021-09-21 03:32] VITALS: O2SAT 98
[2021-09-21] MEDS: TYLENOL EXTRA STRENGTH 500 MG PO PRN ×2 (06:01→11:15)
--- NOTE | 2021-09-21 08:06 | PCM.DS ---
Discharge Summary Date of Admission: 09/19/21 08:22 Admitting Physician: HONORIO GUERRA Consults: Consults on Case 09/19/21 08:03 Notify Anesthesia Provider PRN Primary Care Provider: HENRY JOHNSON Allergies Allergies Latex, Natural Rubber Allergy (Verified 09/19/21 21:30) Hospital Summary - Hospital Course Hospital Course: patient had uncomplicated via elective induction at 39 wks, bottle feeding, no repair at delivery. mild lochia, doing well and well bonded with infant during stay - Vitals & Intake/Output Vital Signs: Vital Signs Temperature 98.3 F 09/21/21 02:00 Pulse Rate 72 09/21/21 02:00 Respiratory Rate 17 09/21/21 02:00 Blood Pressure 123/61 09/21/21 02:00 O2 Sat by Pulse Oximetry 98 09/21/21 02:00 Intake & Output: Intake & Output 09/18/21 09/19/21 09/20/21 09/21/21 11:59 11:59 11:59 11:59 Intake Total 3900 2200 Balance 3900 2200 Weight 96.615 kg - Lab Result Diagrams: 09/20/21 04:45 Lab Results-Last 24 Hrs: Lab Results-Last 24 Hours 09/19/21 Range/Units 05:35 Hep Bs Antigen Negative (Negative) - Procedures and Test Procedures and Tests throughout Hospitalization: Therapy Orders & Screens 09/19/21 05:35 Smoking Cessation Education ONCE Comment: Diagnosis: Induction of Labor Smoking Status: Current every day smoker How long have you smoked: 7 Have you smoked in the past 12 months: Yes Approximately how many cigarettes per day: 1 Do you dip or chew tobacco: No If,Former Smoker,when did you quit: 2 MONTHS Discharge Exam General Appearance: no apparent distress Neurologic Exam: alert, oriented x 3 Respiratory Exam: normal breath sounds, lungs clear, No respiratory distress Cardiovascular Exam: regular rate/rhythm, normal heart sounds Gastrointestinal/Abdomen Exam: soft, No tenderness, No mass Extremity Exam: normal inspection, normal range of motion Skin Exam: normal color, warm, dry Final Diagnosis/Problem List - Final Discharge Diagnosis/Problem (1) Vaginal delivery Current Visit: Yes Status: Acute Code(s): O80 - ENCOUNTER FOR FULL-TERM UNCOMPLICATED DELIVERY (2) Request for sterilization Current Visit: Yes Status: Acute Assessment & Plan: will refer to Dr Valladares for lap tubal Code(s): Z30.2 - ENCOUNTER FOR STERILIZATION - Discharge Disposition: Home, Self-Care Condition: Stable Prescriptions: Continue Etodolac 400 mg [Lodine 400 mg] 400 mg PO BID PRN PRN #20 tablet PRN Reason: Pain Discontinued Ondansetron ODT 4 MG [Zofran Odt 4 mg] 4 mg PO Q6H PRN PRN #20 tab.rapdis PRN Reason: Nausea/Vomiting Follow up with: HONORIO GUERRA MD [ACTIVE STAFF] - 6 weeks DEVIKA VALLADARES DO [ACTIVE STAFF] - Call for Appointment (consult for tubal)
[2021-09-21] MEDS: FERREX 150 PO SCH (09:17)
[2021-09-21] MEDS: Colace 100 MG PO SCH (09:17)
[2021-09-21 18:18] VITALS: BP 107/65; PULSE 71
== END 2021-09-21 15:30 | disposition home or self-care (01) | DRG 807 ==
LOC: OB 04:57 → OBSVTOIN 08:22
PROVIDERS: ADMIT Family Medicine; ATTEND Family Medicine
PROC: 10E0XZZ Delivery of Products of Conception, External Approach (ICD-10-PCS; principal; 2021-09-19)
DX: O80 Encounter for full-term uncomplicated delivery (principal); Z37.0 Single live birth; Z3A.39 39 weeks gestation of pregnancy; Z20.828 Contact with and (suspected) exposure to other viral communicable diseases
CPT/HCPCS: 36415; 80307; 85025; 87340; G0378; J2590; A9270-GY

== ENCOUNTER 2021-12-26 06:47 | Day surgery (SDC) | payer OTHER ==
[2021-12-26] MEDS ORDERED: Lactated Ringers 0 ML IV ONE (06:58)
[2021-12-26] MEDS ORDERED: CEFAZOLIN 2 GM-D5W BAG** 2 GM/50 ML ML IV ONE (06:58)
[2021-12-26] MEDS ORDERED: CEFAZOLIN 2 GM-D5W BAG** 2 GM/50 ML ML IV SCH (07:00)
[2021-12-26] MEDS ORDERED: Lactated Ringers 1,000 ML IV SCH (07:00)
[2021-12-26] MEDS ORDERED: Lactated Ringers 1,000 ML IV ONE ×2 (07:13→10:17)
[2021-12-26] MEDS ORDERED: Sensorcaine 0.25% 10 ML ONE (07:13)
[2021-12-26] MEDS ORDERED: Zemuron 100 MG/10 ML ONE (09:00)
[2021-12-26] MEDS ORDERED: SUBLIMAZE 100 MCG/2 ML ONE ×2 (09:00→09:45)
[2021-12-26] MEDS ORDERED: DIPRIVAN 200 MG/20 ML IV ONE (09:00)
[2021-12-26] MEDS ORDERED: Versed 2 MG/2 ML Injection ONE (09:00)
[2021-12-26] MEDS ORDERED: TORAdol 30 mg Injection ONE (09:02)
[2021-12-26] MEDS ORDERED: Zofran 4 MG/2 ML VIAL ONE ×2 (09:02→09:45)
[2021-12-26] MEDS ORDERED: Xylocaine-Mpf 2% 5 Ml Vial ONE (09:02)
[2021-12-26] MEDS ORDERED: Decadron 4 MG INJ ONE (09:20)
[2021-12-26] MEDS ORDERED: BRIDION 200MG/2ML IV ONE (09:30)
[2021-12-26] MEDS ORDERED: Hydromorphone 1 mg/ml Injection ONE (09:59)
[2021-12-26 11:09] LABS: Appearance CLEAR (CLEAR); Bilirubin NEGATIVE (NEGATIVE); Glucose NEGATIVE (NEGATIVE); Ketones NEGATIVE (NEGATIVE); Mucus SLIGHT /HPF (NEGATIVE); Ph 7.5 (5-6); RBC NEGATIVE Ery/ul (0-5)
[2021-12-26 11:10] LABS: Dipstick done @ ? MAIN LAB; Nitrite NEGATIVE (NEGATIVE); Protein,Urine Dip NEGATIVE (Negative); Urobilinogen 0.2 mg/dL (0-1)
[2021-12-26 11:16] VITALS: PULSE 84
[2021-12-26 11:23] VITALS: BP 123/90; O2SAT 98
--- NOTE | 2021-12-28 08:07 | OP ---
SURGERY DATE/TIME: 12/26/2021 0901 PREOPERATIVE DIAGNOSIS: Multiparity desiring tubal sterilization. POSTOPERATIVE DIAGNOSIS: Multiparity desiring tubal sterilization. PROCEDURE: Laparoscopic tubal sterilization via Falope ring application. SURGEON: Juan Luis Valladares D.O. CLASSIFICATION CONTROL CLERK: Thee Castellano surgical forceps fabricator. ANESTHESIA: General. ESTIMATED BLOOD LOSS: Minimal. COMPLICATIONS: None. INDICATIONS: The risks, benefits, indications and alternatives of the procedure were reviewed with the patient prior to the procedure. The patient understood the risk of infection, bleeding, bowel injury, bladder injury, ureteral injury, uterine perforation, pelvic infection, thromboembolic disorder, possible and ectopic that may be associated with this procedure however desires to have this procedure after all other forms of control were discussed with her. DESCRIPTION OF PROCEDURE AND FINDINGS: From this point the patient is taken to the operating room, given general sedation, placed in dorsal lithotomy position, prepped and draped in the usual sterile fashion. A weighted speculum is then placed in the patient's vaginal region and the anterior lip of the cervix is grasped with a single tooth tenaculum. From this point, a uterine manipulator was then advanced through the endocervical canal as a means to manipulate the uterus. Attention was then turned to the patient's abdomen where a 5 mm skin incision was made in the umbilical fold. A 5 mm trocar and sleeve were advanced under direct visualization where pneumoperitoneum was obtained with 4 liters of CO2 gas. An additional incision was made approximately 2 cm above the symphysis pubis where an 8 mm incision was made and an 8 mm trocar and sleeve were advanced under direct visualization. A survey of the patient's pelvic anatomy revealed entirely normal anatomy. From this point, the uterus is lifted and the Falope ring applicator was then placed through the trocar site and on the isthmic region on the right tube. It was lifted and a knuckle of tube was grasped and the Falope ring was disengaged on the tube and was done so without complication. The same procedure was performed was performed on the right side where the right isthmic region of the fallopian tube was grasped with a knuckle of tube and the Falope ring was released with excellent hemostasis. There was good placement on both sides of the fallopian tube with a good knuckle of tube on both sides. From this point all, all instruments were removed from the patient's abdominal region and the incisions were closed with 4-0 Monocryl suture. The patient was then taken out of the dorsal lithotomy position, was taken out of anesthesia and was then taken to the recovery room in stable condition. All instruments and laps were accounted for x2.
== END 2021-12-26 11:20 | disposition home or self-care (01) ==
LOC: SDC 06:47
PROVIDERS: ATTEND Obstetrics & Gynecology
DX: Z30.2 Encounter for sterilization (principal)
CPT/HCPCS: 81001; 84703; 87086; J0690; J1100; J1170; J1885; J2250; J2405; J2704; J3010

== ENCOUNTER 2022-02-05 23:19 | Emergency (ER) | payer OTHER ==
--- NOTE | 2022-02-05 23:21 | ERPHSYRPT ---
- History of Present Illness Time Seen by Provider: 02/05/22 23:21 Source: patient Exam Limitations: no limitations Physician History: This is a 26-year-old white female patient of Dr. Guerra who has had a few day history of nonproductive cough with loss of taste. Patient denies fever. She denies nausea vomiting or diarrhea. She does not have chest pain. She does not complain of shortness of breath. Patient is an every day smoker of cigarettes. Patient has a history of asthma and sleep apnea. Timing/Duration: day(s) (3) Cough Quality/Degree: mild Possible Cause: occasional episodes (Nonproductive) Modifying Factors: Improves With: coughing Associated Symptoms: other (Loss of taste) Allergies/Adverse Reactions: Latex, Natural Rubber Allergy (Verified 02/05/22 23:48) Home Medications: No Reportable Medications [No Reported Medications] 02/05/22 [History] Hx Tetanus, Diphtheria Vaccination/Date Given: Yes Hx Influenza Vaccination/Date Given: Yes Hx Pneumococcal Vaccination/Date Given: No Travel Risk - International Travel Have you traveled outside of the country in past 3 weeks: No - Coronavirus Screening Are you exhibiting any of the following symptoms?: Yes Symptoms: Cough: New Onset, Loss of Taste or Smell Close contact with a COVID-19 positive Pt in past 14-21 Days: No - Vaccine Status Have you recieved a Covid-19 vaccination: No - Review of Systems Constitutional: No Symptoms Eyes: No Symptoms Ears, Nose, & Throat: No Symptoms Respiratory: Cough Cardiac: No Symptoms Abdominal/Gastrointestinal: No Symptoms Genitourinary Symptoms: No Symptoms Musculoskeletal: No Symptoms Skin: No Symptoms Neurological: No Symptoms Psychological: No Symptoms Endocrine: No Symptoms Hematologic/Lymphatic: No Symptoms Immunological/Allergic: No Symptoms All Other Systems: Reviewed and Negative - Past Medical History Pertinent Past Medical History: No Neurological History: Seizures ENT History: No Pertinent History Cardiac History: Arrhythmia Respiratory History: Asthma, Sleep Apnea Endocrine Medical History: No Pertinent History Musculoskeletal History: No Pertinent History GI Medical History: No Pertinent History History: No Pertinent History Psycho-Social History: No Pertinent History Female Reproductive Disorders: Other Other Medical History: palpitations, pre-eclampsia, hx of ovarian cysts. Pt reports that she has seizures when she sleeps and that she also quits breathing when she sleeps. Reports that Dr. Damon found it on a sleep study. Pt does have hx of sleep apnea, but does not wear a cpap. Anesthesia aware. - Past Surgical History Past Surgical History: Yes (appy) Neuro Surgical History: No Pertinent History Cardiac: No Pertinent History Respiratory: No Pertinent History Gastrointestinal: No Pertinent History Genitourinary: No Pertinent History Musculoskeletal: No Pertinent History Female Surgical History: No Pertinent History Other Surgical History: WISDOM TEETH - Social History Smoking Status: Current every day smoker How long have you smoked: 10 years Exposure to second hand smoke: Yes (mom) Drug Use: marijuana Patient Lives Alone: No - Nursing Vital Signs Nursing Vital Signs: Initial Vital Signs Temperature 98.6 F 02/05/22 23:38 Respiratory Rate 16 02/05/22 23:38 O2 Sat by Pulse Oximetry 97 02/05/22 23:38 Pain Scale Pain Intensity 0 - Physical Exam General Appearance: no apparent distress, alert, anxiety Eye Exam: PERRL/EOMI, eyes nml inspection Ears, Nose, Throat Exam: normal ENT inspection, moist mucous membranes Neck Exam: normal inspection, non-tender, supple, full range of motion Respiratory Exam: normal breath sounds, lungs clear, airway intact, No chest tenderness, No respiratory distress Cardiovascular Exam: regular rate/rhythm, normal heart sounds, normal peripheral pulses Gastrointestinal/Abdomen Exam: soft, normal bowel sounds, No tenderness Pelvic Exam: not done Rectal Exam: not done Back Exam: normal inspection, normal range of motion, No CVA tenderness, No vertebral tenderness Neurologic Exam: alert, oriented x 3, cooperative, template checker II-XII nml as tested, normal mood/affect, nml cerebellar function, nml station & gait, sensation nml Skin Exam: normal color, warm, dry Lymphatic Exam: No adenopathy SpO2 Interpretation: normal O2 Delivery: Room Air - Course Nursing assessment & vital signs reviewed: Yes Lab/Rad Data: Laboratory Results 02/05/22 02/05/22 Range/Units 23:50 23:50 Influenza Type A Ag NEGATIVE (NEGATIVE) Influenza Type B Ag NEGATIVE (NEGATIVE) RSV (PCR) NEGATIVE (Negative) SARS-CoV-2 (PCR) NEGATIVE (NEGATIVE) Group A Strep Antibody NOT DETECTED (NEGATIVE) - Progress Progress: unchanged Air Movement: good Blood Culture(s) Obtained: No Antibiotics given: No Counseled pt/family regarding: lab results, diagnosis, need for follow-up - Departure Departure Disposition: Home Clinical Impression: Cough Condition: Stable Critical Care Time: No Referrals: HONORIO GUERRA MD [Primary Care Provider] - Follow up/PCP as directed Additional Instructions: Drink plenty of fluids. Use Tylenol and ibuprofen for fever and pain control. Follow-up with primary care physician for further evaluation and management.
[2022-02-06 00:32] LABS: INFLUENZA A NEGATIVE (NEGATIVE); INFLUENZA B NEGATIVE (NEGATIVE); RESPIRATORY SYNCTIAL VIRUS NEGATIVE (Negative); SARS-CoV-2 Xpert Express NEGATIVE (NEGATIVE)
[2022-02-06 01:25] VITALS: BP 116/76; PULSE 68; O2SAT 98
== END 2022-02-06 01:20 | disposition home or self-care (01) ==
LOC: ED 23:19
DX: R05.1 Acute cough (principal); R43.9 Unspecified disturbances of smell and taste; Z72.0 Tobacco use; Z28.310 Unvaccinated for COVID-19
CPT/HCPCS: 0241U; 87651; 99283

== ENCOUNTER 2022-06-21 21:50 | Emergency (ER) | payer OTHER ==
--- NOTE | 2022-06-21 21:59 | ERPHSYRPT ---
- History of Present Illness Time Seen by Provider: 06/21/22 21:59 Historian: patient Exam Limitations: no limitations Physician History: This is a 26-year-old white female patient who began having some right flank pain at approximately 2330 yesterday evening. The pain has intensified in the right flank and has radiated down to the right lower quadrant. Patient has had an appendectomy in the past. She has a history of ovarian cysts. Patient took 1 g of Tylenol at 1430 today and the pain continues to be sharp and stabbing in both areas. She has not noticed any vaginal bleeding. She denies cough she denies chest pain. She does not have shortness of breath. Timing/Duration: yesterday Abdominal Pain Onset Location: RLQ, flank (Right flank) Pain Radiation: flank (Right flank) Severity of Pain-Max: moderate Severity of Pain-Current: moderate Associated Symptoms: denies symptoms Previous symptoms: no prior history Allergies/Adverse Reactions: Latex, Natural Rubber Allergy (Verified 06/21/22 22:16) Home Medications: No Reportable Medications [No Reported Medications] 02/05/22 [History] Hx Tetanus, Diphtheria Vaccination/Date Given: Yes Hx Influenza Vaccination/Date Given: Yes Hx Pneumococcal Vaccination/Date Given: No Travel Risk - International Travel Have you traveled outside of the country in past 3 weeks: No - Coronavirus Screening Are you exhibiting any of the following symptoms?: No Close contact with a COVID-19 positive Pt in past 14-21 Days: No - Vaccine Status Have you recieved a Covid-19 vaccination: No - Review of Systems Constitutional: No Symptoms Eyes: No Symptoms Ears, Nose, & Throat: No Symptoms Respiratory: No Symptoms Cardiac: No Symptoms Abdominal/Gastrointestinal: Abdominal Pain (Right lower quadrant) Genitourinary Symptoms: Flank Pain (Right flank pain) Musculoskeletal: No Symptoms Skin: No Symptoms Neurological: No Symptoms Psychological: No Symptoms Endocrine: No Symptoms Hematologic/Lymphatic: No Symptoms Immunological/Allergic: No Symptoms All Other Systems: Reviewed and Negative - Past Medical History Pertinent Past Medical History: No Neurological History: Seizures ENT History: No Pertinent History Cardiac History: Arrhythmia Respiratory History: Asthma, Sleep Apnea Endocrine Medical History: No Pertinent History Musculoskeletal History: No Pertinent History GI Medical History: No Pertinent History History: No Pertinent History Psycho-Social History: No Pertinent History Female Reproductive Disorders: Other Other Medical History: palpitations, pre-eclampsia, hx of ovarian cysts. Pt reports that she has seizures when she sleeps and that she also quits breathing when she sleeps. Reports that Dr. Damon found it on a sleep study. Pt does have hx of sleep apnea, but does not wear a cpap. Anesthesia aware. - Past Surgical History Past Surgical History: Yes (appy) Neuro Surgical History: No Pertinent History Cardiac: No Pertinent History Respiratory: No Pertinent History Gastrointestinal: No Pertinent History Genitourinary: No Pertinent History Musculoskeletal: No Pertinent History Female Surgical History: No Pertinent History Other Surgical History: WISDOM TEETH - Social History Smoking Status: Current every day smoker How long have you smoked: 10 years Exposure to second hand smoke: Yes (mom) Drug Use: marijuana Patient Lives Alone: No - Nursing Vital Signs Nursing Vital Signs: Initial Vital Signs Respiratory Rate 16 06/21/22 21:58 Pain Scale Pain Intensity 2 - Physical Exam General Appearance: mild distress, alert, anxiety Ears, Nose, Throat Exam: normal ENT inspection, moist mucous membranes Neck Exam: normal inspection, non-tender, supple, full range of motion Respiratory Exam: normal breath sounds, lungs clear, airway intact, No chest tenderness, No respiratory distress Cardiovascular Exam: regular rate/rhythm, normal heart sounds, normal peripheral pulses Gastrointestinal/Abdomen Exam: soft, normal bowel sounds, tenderness (Right lower quadrant), guarding (Right lower quadrant) Pelvic Exam: not done Rectal Exam: not done Back Exam: normal inspection, normal range of motion, CVA tenderness, vertebral tenderness (Right side) Extremity Exam: normal inspection, normal range of motion, pelvis stable Neurologic Exam: alert, oriented x 3, cooperative, abrasive grader helper II-XII nml as tested, normal mood/affect, nml cerebellar function, nml station & gait, sensation nml Skin Exam: normal color, warm, dry Lymphatic Exam: No adenopathy SpO2 Interpretation: normal O2 Delivery: Room Air - Course Nursing assessment & vital signs reviewed: Yes Ordered Tests: Active Orders 24 hr Category Date Time Status IV Insertion STAT Care 06/21/22 22:08 Active ABDOMEN AND PELVIS W/0 CONTRAS [CT] Stat Exams 06/21/22 22:24 Taken AMYLASE Stat Lab 06/21/22 22:20 Completed CBC W DIFF Stat Lab 06/21/22 22:20 Completed CMP Stat Lab 06/21/22 22:20 Completed HCG,QUALITATIVE URINE Stat Lab 06/21/22 22:05 Completed LIPASE Stat Lab 06/21/22 22:20 Completed UA W/RFX CULTURE Stat Lab 06/21/22 22:05 Completed Medication Summary Discontinued Medications Generic Name Dose Route Start Last Admin Trade Name Yifan PRN Reason Stop Dose Admin Sodium Chloride 1,000 mls @ 999 mls/hr 06/21/22 22:24 06/21/22 22:32 Sodium Chloride 0.9% 1000 Ml IV 06/21/22 23:24 999 mls/hr .Q1H1M STA Administration Sodium Chloride Confirm 06/21/22 22:30 Sodium Chloride 0.9% 1000 Ml Administered 06/21/22 22:31 Dose 1,000 mls @ ud .ROUTE .STK-MED ONE Ketorolac Tromethamine 30 mg 06/21/22 22:24 06/21/22 22:31 Ketorolac Tromethamine 30 Mg/Ml Inj IV 06/21/22 22:25 30 mg STAT ONE Administration Ketorolac Tromethamine Confirm 06/21/22 22:30 Ketorolac Tromethamine 30 Mg/Ml Inj Administered 06/21/22 22:31 Dose 30 mg .ROUTE .STK-MED ONE Lab/Rad Data: Laboratory Result Diagrams 06/21/22 22:20 06/21/22 22:20 Laboratory Results 06/21/22 06/21/22 06/21/22 Range/Units 22:20 22:20 22:05 WBC 9.2 (4.0-10.5) x10^3/uL RBC 5.21 (4.1-5.4) x10^6/uL Hgb 13.9 (12.0-16.0) g/dL Hct 44.3 (35-47) % MCV 85.0 (78-100) fL MCH 26.7 (26-32) pg MCHC 31.4 L (32-36) g/dL RDW 13.3 (11.5-14.0) % Plt Count 372 (150-450) x10^3/uL MPV 10.4 (7.5-11.0) fL Gran % 69.0 H (36.0-66.0) % Immature Gran % (Auto) 0.2 (0.00-0.4) % Nucleat RBC Rel Count 0.0 (0.00-0.1) % Eos # (Auto) 0.04 (0-0.5) x10^3/uL Immature Gran # (Auto) 0.02 (0.00-0.03) x10^3u/L Absolute Lymphs (auto) 1.96 (1.0-4.6) x10^3/uL Absolute Monos (auto) 0.80 (0.0-1.3) x10^3/uL Absolute Nucleated RBC 0.00 (0.00-0.01) x10^3u/L Lymphocytes % 21.4 L (24.0-44.0) % Monocytes % 8.7 (0.0-12.0) % Eosinophils % 0.4 (0.00-5.0) % Basophils % 0.3 (0.0-0.4) % Absolute Granulocytes 6.31 (1.4-6.9) x10^3/uL Basophils # 0.03 (0-0.4) x10^3/uL Sodium 138 (137-145) mmol/L Potassium 3.8 (3.5-5.1) mmol/L Chloride 104 (98-107) mmol/L Carbon Dioxide 22 (22-30) mmol/L Anion Gap 15.2 H (5-15) MEQ/L BUN 8 (7-17) mg/dL Creatinine 0.75 (0.52-1.04) mg/dL Estimated GFR > 60.0 ML/MIN Glucose 100 (74-106) mg/dL Calcium 9.7 (8.4-10.2) mg/dL Total Bilirubin 0.70 (0.2-1.3) mg/dL AST 21 (14-36) U/L ALT 16 (0-35) U/L Alkaline Phosphatase 66 (38-126) U/L Serum Total Protein 8.4 H (6.3-8.2) g/dL Albumin 4.9 (3.5-5.0) g/dL Amylase 99 (30-110) U/L Lipase 48 (23-300) U/L Urinalys Dipstick Clnc Urine Color (YELLOW) Urine Appearance (CLEAR) Urine pH (5-6) Ur Specific Mather (1.005-1.025) POC Urine Protein Conf (Negative) Urine Ketones (NEGATIVE) Urine Nitrite (NEGATIVE) Urine Bilirubin (NEGATIVE) Urine Urobilinogen (0-1) mg/dL Urine Leukocytes (NEGATIVE) Urine WBC (Auto) (0-5) /HPF Urine RBC (Auto) (0-2) /HPF U Epithel Cells (Auto) (FEW) /HPF Urine Bacteria (Auto) (NEGATIVE) /HPF Urine RBC (0-5) Avelino/ul Urine Mucus (Auto) (NEGATIVE) /HPF Ur Culture Indicated? Urine Glucose (NEGATIVE) mg/dL Urine HCG, Qual NEGATIVE (Negative) 06/21/22 Range/Units 22:05 WBC (4.0-10.5) x10^3/uL RBC (4.1-5.4) x10^6/uL Hgb (12.0-16.0) g/dL Hct (35-47) % MCV (78-100) fL MCH (26-32) pg MCHC (32-36) g/dL RDW (11.5-14.0) % Plt Count (150-450) x10^3/uL MPV (7.5-11.0) fL Gran % (36.0-66.0) % Immature Gran % (Auto) (0.00-0.4) % Nucleat RBC Rel Count (0.00-0.1) % Eos # (Auto) (0-0.5) x10^3/uL Immature Gran # (Auto) (0.00-0.03) x10^3u/L Absolute Lymphs (auto) (1.0-4.6) x10^3/uL Absolute Monos (auto) (0.0-1.3) x10^3/uL Absolute Nucleated RBC (0.00-0.01) x10^3u/L Lymphocytes % (24.0-44.0) % Monocytes % (0.0-12.0) % Eosinophils % (0.00-5.0) % Basophils % (0.0-0.4) % Absolute Granulocytes (1.4-6.9) x10^3/uL Basophils # (0-0.4) x10^3/uL Sodium (137-145) mmol/L Potassium (3.5-5.1) mmol/L Chloride (98-107) mmol/L Carbon Dioxide (22-30) mmol/L Anion Gap (5-15) MEQ/L BUN (7-17) mg/dL Creatinine (0.52-1.04) mg/dL Estimated GFR ML/MIN Glucose (74-106) mg/dL Calcium (8.4-10.2) mg/dL Total Bilirubin (0.2-1.3) mg/dL AST (14-36) U/L ALT (0-35) U/L Alkaline Phosphatase (38-126) U/L Serum Total Protein (6.3-8.2) g/dL Albumin (3.5-5.0) g/dL Amylase (30-110) U/L Lipase (23-300) U/L Urinalys Dipstick Clnc MAIN LAB Urine Color DARK YELLOW (YELLOW) Urine Appearance CLEAR (CLEAR) Urine pH 6.5 (5-6) Ur Specific Mather 1.025 (1.005-1.025) POC Urine Protein Conf NEGATIVE (Negative) Urine Ketones MODERATE-40 (NEGATIVE) Urine Nitrite NEGATIVE (NEGATIVE) Urine Bilirubin SMALL (NEGATIVE) Urine Urobilinogen 1 (0-1) mg/dL Urine Leukocytes NEGATIVE (NEGATIVE) Urine WBC (Auto) NONE (0-5) /HPF Urine RBC (Auto) NONE (0-2) /HPF U Epithel Cells (Auto) RARE (FEW) /HPF Urine Bacteria (Auto) NONE (NEGATIVE) /HPF Urine RBC NEGATIVE (0-5) Avelino/ul Urine Mucus (Auto) SLIGHT (NEGATIVE) /HPF Ur Culture Indicated? NO Urine Glucose NEGATIVE (NEGATIVE) mg/dL Urine HCG, Qual (Negative) - Progress Progress: improved, pain not gone completely Progress Note: 06/22/22 00:13 CAT scan of the abdomen pelvis without contrast shows no acute intra-abdominal or intrapelvic findings Counseled pt/family regarding: lab results, diagnosis, need for follow-up, rad results - Departure Departure Disposition: Home Clinical Impression: Flank pain, Abdominal pain, Dehydration Condition: Stable Critical Care Time: No Referrals: HONORIO GUERRA MD [Primary Care Provider] - Follow up/PCP as directed Additional Instructions: Drink plenty of fluids. Take your medication as prescribed. Follow-up with your primary care physician for further evaluation management.
[2022-06-21 22:12] LABS: Appearance CLEAR (CLEAR); Bilirubin SMALL (NEGATIVE); Glucose NEGATIVE (NEGATIVE); Ketones MODERATE-40 (NEGATIVE); Ph 6.5 (5-6); RBC NEGATIVE Ery/ul (0-5); Specific Gravity 1.025 (1.005-1.025)
[2022-06-21 22:13] LABS: Dipstick done @ ? MAIN LAB; Nitrite NEGATIVE (NEGATIVE); Protein,Urine Dip NEGATIVE (Negative); Urobilinogen 1 mg/dL (0-1)
[2022-06-21 22:14] LABS: Epithelial Cells RARE /HPF (FEW); Mucus SLIGHT /HPF (NEGATIVE)
[2022-06-21 22:15] LABS: Urine Cultured Indicated? NO
[2022-06-21] MEDS ORDERED: TORAdol 30 mg Injection IV ONE (22:24)
[2022-06-21] MEDS ORDERED: Sodium Chloride 0.9% 1000 ML 1,000 ML IV STA (22:24)
[2022-06-21] MEDS ORDERED: Sodium Chloride 0.9% 1000 ML 1,000 ML ONE (22:30)
[2022-06-21] MEDS ORDERED: TORAdol 30 mg Injection ONE (22:30)
[2022-06-21 22:34] LABS: Absolute Neutrophil Ct (ANC) 6.31 x10^3/uL (1.4-6.9); Basophil (Absolute #) 0.03 x10^3/uL (0-0.4); Eosinophil % 0.4 % (0.00-5.0); Eosinophil (Absolute #) 0.04 x10^3/uL (0-0.5); Hematocrit 44.3 % (35-47); Hemoglobin 13.9 g/dL (12.0-16.0); Lymphocyte (Absolute #) 1.96 x10^3/uL (1.0-4.6); Lymphocytes % 21.4 % (24.0-44.0); Mean Corpuscular Hemoglobin 26.7 pg (26-32); Mean Corpuscular Hgb Concent. 31.4 g/dL (32-36); Mean Platelet Volume 10.4 fL (7.5-11.0); Monocytes % 8.7 % (0.0-12.0); Platelet Count 372 x10^3/uL (150-450); Red Blood Count 5.21 x10^6/uL (4.1-5.4); Red Cell Distribution Width 13.3 % (11.5-14.0); White Blood Count 9.2 x10^3/uL (4.0-10.5)
[2022-06-21 22:48] LABS: ALBUMIN 4.9 g/dL (3.5-5.0); ALKALINE PHOSPHATASE 66 U/L (38-126); AMYLASE 99 U/L (30-110); ANION GAP 15.2 MEQ/L (5-15); BLOOD UREA NITROGEN 8 mg/dL (7-17); CHLORIDE 104 mmol/L (98-107); Calcium 9.7 mg/dL (8.4-10.2); Carbon Dioxide 22 mmol/L (22-30); Creatinine 1 0.75 mg/dL (0.52-1.04); EST GLOMERULAR FILTRATION RATE > 60.0 ML/MIN; Glucose 100 mg/dL (74-106); LIPASE 48 U/L (23-300); Potassium 3.8 mmol/L (3.5-5.1); SGOT/AST 21 U/L (14-36); SGPT/ALT 16 U/L (0-35); SODIUM 138 mmol/L (137-145); Total Protein 8.4 g/dL (6.3-8.2)
[2022-06-22 00:15] VITALS: BP 112/62; PULSE 70; O2SAT 99
[2022-06-22] MEDS ORDERED: NORCO 5/325 MG PO ONE (00:15)
[2022-06-22] MEDS ORDERED: NORCO 5/325 MG ONE (00:23)
--- NOTE | 2022-06-22 08:56 | XRAY ---
Indication: Right flank/right lower quadrant pain. Multiple contiguous axial images obtained through the abdomen and pelvis without contrast. Comparison: June 01, 2020 Lung bases remains clear. Heart not enlarged. Noncontrasted stomach and bowel loops nonobstructed again with appendectomy. No free fluid/air. Remaining liver, gallbladder, pancreas, spleen, adrenal glands, kidneys, ureters, bladder, uterus, and aorta are unremarkable for noncontrast exam. Osseous structures intact. No ventral or inguinal hernias. Impression: Negative CT abdomen/pelvis without contrast exam. Comment: Preliminary interpretation made by [facility]. No critical discrepancy.
== END 2022-06-22 00:25 | disposition home or self-care (01) ==
LOC: ED 21:50
DX: R10.31 Right lower quadrant pain (principal); E86.0 Dehydration; Z72.0 Tobacco use; Z28.310 Unvaccinated for COVID-19
CPT/HCPCS: 36000; 36415; 74176; 80053; 81015; 81025; 82150; 83690; 85025; 96374; 96375; 99284; J1885; A9270-GY